=== PATIENT | female | born 1955 | race Caucasian/White ===

== ENCOUNTER 2018-07-18 11:48 | Emergency (ER) | payer OTHER, SELFPAY ==
[2018-07-18 11:49] VITALS: BP 192/90; PULSE 90; RESP 18; TEMP 36.2; O2SAT 99; BMI 20.5
--- NOTE | 2018-07-18 12:41 | EKG12_ITS ---
Test Reason : INCR BP Blood Pressure : / mmHG Vent. Rate : 074 BPM Atrial Rate : 074 BPM P-R Int : 170 ms QRS Dur : 106 ms QT Int : 390 ms P-R-T Axes : 068 -20 130 degrees QTc Int : 432 ms Normal sinus rhythm Left ventricular hypertrophy with repolarization abnormality Abnormal ECG Confirmed by CLARIBEL PARHAM, JUAN ([id number]), features editor DAVID SANTANA ([id number]) on 07/20/2018 1:56:39 PM Referred By: DR MADSEN Confirmed By:JUAN SANFORD MD
--- NOTE | 2018-07-18 12:44 | NURSING ---
NO OLD EKGS
--- NOTE | 2018-07-18 12:45 | RAD_ITS ---
STUDY: X-RAY CHEST REASON FOR EXAM: Female, 63 years old. Chest pain. TECHNIQUE: Single AP portable view of the chest. COMPARISON: None. FINDINGS: Hyperinflation. The lungs are clear. There is no demonstrated pleural abnormality. Normal size heart. Normal mediastinum and marya. Normal visualized pulmonary arteries. Normal visualized aortic arch and descending thoracic aorta. There are degenerative changes of the visualized thoracic spine. Normal visualized ribs, clavicles, and shoulders. There is no demonstrated abnormality of the visualized soft tissue structures of the upper abdomen. RAD/Chest 1 View (Portable) IMPRESSION: Hyperinflation. Electronically Signed: Freedom Jimenez MD at 13:30 EST Tel [phone], Service support ,
[2018-07-18 13:16] LABS: Absolute Lymphocyte Count 1.59 X10^3/ul (0.83-4.51); Absolute Neutrophil Count 7.1 X10^3/uL (2.0-7.7); Basophil# 0.05 X10^3/uL; Basophil% 0.5 % (0-1); Eosinophil# 0.23 X10^3/uL; Eosinophils% 2.4 % (0-5); Hematocrit 49.6 % (37-47); Hemoglobin 16.8 g/dl (12.0-15.0); Lymphocyte # 1.59 X10^3/ul (4.0); Lymphocyte % 16.6 % (19-41); Mean Corp Hgb Conc 33.9 g/gl (32-36); Mean Corpuscular Hgb 31.9 pg (27.0-32.0); Mean Corpuscular Volume 94.3 fL (81-99); Mean Platelet Vol. 9.3 fl (6.2-12.0); Monocyte# 0.57 X10^3/uL; Monocyte% 5.9 % (0-10); Neutrophil # 7.14 X10^3/uL (2.7-7.7); Neutrophil % 74.4 % (47-70); Platelet Count 223 K/mm3 (150-450); RBC Distribution Width CV 12.6 % (11.6-14.6); RBC Distribution Width SD 43.5 fl (35.1-43.9); Red Blood Count 5.26 M/mm3 (4.2-5.4); White Blood Count 9.6 K/mm3 (4.4-11.0)
[2018-07-18 13:17] LABS: POSITIVE COUNT NO; POSITIVE DIFFERENTIAL NO; POSITIVE MORPHOLOGY NO
[2018-07-18 13:27] LABS: Anion Gap 8 (5-15); BUN 14 mg/dL (7-18); BUN/Creat Ratio 16.2 RATIO (10-20); Calcium,Total 9.4 mg/dL (8.5-10.1); Chloride 102 mmol/L (98-107); Creatinine, Serum 0.86 mg/dL (0.55-1.02); EST Glomerular Filtration Rate 70 mL/min (>60); Est Glom Filt Rate - Afr Amer 85 mL/min (>60); Estimated Creatinine Clearance 52.27 ml/min; Glucose 126 mg/dL (74-106); Potassium 3.9 mmol/L (3.5-5.1); Sodium Level 135 mmol/L (136-145)
--- NOTE | 2018-07-18 13:40 | ED.DCSUM_ITS ---
- ER Visit Summary Date of Service: 07/18/18 Chief Complaint: High blood pressure History of Present Illness: The patient is a 63 F with no primary care physician. She reports that she went to an urgent care 2 weeks ago and her blood pressure was found to be 206/92. She went to a nurse practitioner last w [place] and was placed on hydrochlorothiazide and is taking 12.5 mg p.o. daily. She is concerned today because she has had upper back pain for the past 3 days. States is 10-10 at worst and through 10 currently. Is increased with standing on her feet. She denies any recent trauma. No fall, MVA, or change in activity. Patient reports that her hands have been tingling and cold bilaterally. She rep orts this is chronic, but seems to be worse today. She denies any other paresthesias. No headache. No chest pain or shortness of breath. Physical Examination: Vitals: Stable. Afebrile. General: Well-nourished and well-developed. Head: Normocephalic atraumatic. Neck: Supple, no lymphadenopathy. No JVD. Nontender. Cardiovascular: Regular rate and rhythm. No murmurs. Respiratory: No respiratory distress. Clear to auscultation bilaterally. Abdominal: Soft, nontender, nondistended, normal bowel sounds. No guarding, rebound, or peritoneal signs. Back: Mild tenderness palpation over the mid thoracic region.. Extremities: Nontender, no edema. 2+ radial pulse bilaterally. Skin: Normal color, no rash. Neurologic: Alert and oriented ?3. Cranial nerves II through XII are intact. Normal strength and sensation. Psych: Normal affect. Test Results: EKG is sinus at 74 with LVH with repolarization changes and T wave inversions laterally. Troponin is 0.031. Chem-7 is more for sodium 135 and glucose 126. CBC is more for an H&H of 16.8, 49.6, 7 neutrophils 74, lymphocytes 17. Chest x-ray shows no acute disease. Emergency Department Course and Treatment: Patient's initial blood pressure was 192/90. This decreased to 170/74 with no treatment. Treatment Plan: I discussed the patient that at this time she certainly does have hypertension and this appears to be long-standing given her EKG changes. She will be discharged instructions to follow-up with Dr. Hector for further ev aluation and optimization of her blood pressure treatment. Return to the emergency department for any worsening symptoms. Disposition: To home in improved and stable condition. Impression: 1. Hypertension. 2. Upper back pain, musculoskeletal. This note was generated with Attensity dictation software. It may contain incorrect words, spelling, and punctuation that were not noted in review of the chart prior to signing ED Disposition - Plan for ED Patient: Disposition: Home or Assisted Living Chief Complaint: Back Instructions: ED HTN Established Referrals: Keerthi Hector MD [STAFF PHYSICIAN] - 1 Week
[2018-07-18 14:05] VITALS: BP 164/76; PULSE 76; RESP 20; O2SAT 98
== END 2018-07-18 14:06 | disposition home or self-care (01) ==
PROVIDERS: Emergency Provider Emergency Medicine
DX: I10 Essential (primary) hypertension (principal); M54.6 Pain in thoracic spine; Z72.0 Tobacco use
CPT/HCPCS: 71045; 80048; 84484; 85025; 93005; 99284; A4216

== ENCOUNTER 2022-02-20 17:54 | Inpatient (IN) | payer MEDICARE, SELFPAY ==
[2022-02-20] VITALS (11 sets, daily range): BP systolic 132–177; BP diastolic 61–76; PULSE 85–113; RESP 15–28; TEMP 36.6–37; O2SAT 95–98; BMI 19.8; BMI 19.9; BMI 18.8
--- NOTE | 2022-02-20 17:56 | EKG12_ITS ---
Test Reason : CVA Blood Pressure : / mmHG Vent. Rate : 111 BPM Atrial Rate : 111 BPM P-R Int : 180 ms QRS Dur : 106 ms QT Int : 316 ms P-R-T Axes : 079 -15 105 degrees QTc Int : 429 ms Sinus tachycardia Incomplete right bundle branch block Left ventricular hypertrophy Nonspecific ST and T wave abnormality Abnormal ECG Confirmed by VIKRAM PARHAM, HEATHER ([id number]), video effects editor PABLO SHEA ([id number]) on 02/24/2022 12:45:29 PM Referred By: Johanny Dunbar Confirmed By:HEATHER SUE MD
--- NOTE | 2022-02-20 17:56 | CT_ITS ---
We are attempting to reach an attending provider to discuss findings. An addendum with communication details will be sent when the communication is complete. EXAM: CT ANGIOGRAPHY HEAD AND NECK WITH INTRAVENOUS CONTRAST CLINICAL INDICATION: Neuro deficit, acute, stroke suspected TECHNIQUE: [place] [facility] [place]/head and neck CT angiography protocol performed with intravenous contrast. This CT exam was performed using one or more of the following dose reduction techniques: automated exposure control, adjustment of the mA and/or kV according to patient size, and/or use of iterative reconstruction technique. This report was created using Z[employer] report generation technology. MIP reconstructed images were created and reviewed. CONTRAST: IV 100mL [id number]-[id number] RADIATION DOSE: CTDIvol = 15.25 mGy, DLP = 465.41 mGy-cm COMPARISON: None. FINDINGS: HEAD: RIGHT ANTERIOR CEREBRAL ARTERY: Unremarkable. No significant stenosis at the visualized segments. Anterior communicating artery is present. No aneurysm. RIGHT MIDDLE CEREBRAL ARTERY: Unremarkable. No significant stenosis at the visualized segments. No aneurysm. RIGHT POSTERIOR CEREBRAL ARTERY: Unremarkable. No occlusion or significant stenosis. No aneurysm. RIGHT INTRACRANIAL INTERNAL CAROTID ARTERY: See below. RIGHT INTRACRANIAL VERTEBRAL ARTERY: Nonvisualized distal right vertebral artery. This may suggest atresia or stenosis. LEFT ANTERIOR CEREBRAL ARTERY: Unremarkable. No significant stenosis at the visualized segments. No aneurysm. LEFT MIDDLE CEREBRAL ARTERY: Unremarkable. No significant stenosis at the visualized segments. No aneurysm. LEFT POSTERIOR CEREBRAL ARTERY: Unremarkable. No occlusion or significant stenosis. No aneurysm. LEFT INTRACRANIAL INTERNAL CAROTID ARTERY: See below. LEFT INTRACRANIAL VERTEBRAL ARTERY: Unremarkable. No significant stenosis. No dissection or occlusion. BASILAR ARTERY: Unremarkable. No significant stenosis. No aneurysm. OTHER VASCULATURE: There is mild atherosclerotic plaque formation of the origin of the right internal carotid artery with less than 50% cross sectional diameter stenosis. ALL ABOVE CRITERIA BY NASCET. There is mild atherosclerotic plaque formation of the origin of the left internal carotid artery with less than 50% cross sectional diameter stenosis. ALL ABOVE CRITERIA BY NASCET. There is calcified plaque formation of the right cavernous carotid artery, with a mild stenosis (less than 50%). ALL ABOVE CRITERIA BY NASCET. NECK: RIGHT COMMON CAROTID ARTERY: Unremarkable. No significant stenosis. No dissection or occlusion. RIGHT EXTRACRANIAL INTERNAL CAROTID ARTERY: See above. RIGHT EXTERNAL CAROTID ARTERY: Unremarkable. No occlusion. RIGHT EXTRACRANIAL VERTEBRAL ARTERY: See above. LEFT COMMON CAROTID ARTERY: Unremarkable. No significant stenosis. No dissection or occlusion. LEFT EXTRACRANIAL INTERNAL CAROTID ARTERY: See above. LEFT EXTERNAL CAROTID ARTERY: Unremarkable. No occlusion. LEFT EXTRACRANIAL VERTEBRAL ARTERY: Unremarkable. No significant stenosis. No dissection or occlusion. GREAT VESSELS OF AORTIC ARCH: There is calcified plaque formation of the left cavernous carotid artery, with a mild stenosis (less than 50%). ALL ABOVE CRITERIA BY NASCET. LUNG APICES: Unremarkable as visualized. HEAD and NECK: BONES/JOINTS: Unremarkable. No discrete lytic or blastic abnormalities. SOFT TISSUES: Unremarkable. CAROTID STENOSIS REFERENCE USING NASCET CRITERIA: % ICA stenosis = (1 - narrowest ICA diameter/diameter of distal cervical ICA) x 100. Mild - <50% stenosis. Moderate - 50-69% stenosis. Severe - 70-94% stenosis. Near occlusion - 95-99% stenosis. Occluded - 100% stenosis. CT/STROKE CTA Head AND Neck W/Con IMPRESSION: 1. Nonvisualized distal right vertebral artery. This may suggest atresia, occlusion, or stenosis. 2. There is mild atherosclerotic plaque formation of the origin of the right internal carotid artery with less than 50% cross sectional diameter stenosis. ALL ABOVE CRITERIA BY NASCET. 3. There is mild atherosclerotic plaque formation of the origin of the left internal carotid artery with less than 50% cross sectional diameter stenosis. ALL ABOVE CRITERIA BY NASCET. 4. There is calcified plaque formation of the right cavernous carotid artery, with a mild stenosis (less than 50%). ALL ABOVE CRITERIA BY NASCET. 5. There is calcified plaque formation of the left cavernous carotid artery, with a mild stenosis (less than 50%). ALL ABOVE CRITERIA BY NASCET. Electronically Signed: Khang Garcia MD at 18:21 EDT ,
--- NOTE | 2022-02-20 17:56 | CT_ITS ---
We are attempting to reach an attending provider to discuss findings. An addendum with communication details will be sent when the communication is complete. STUDY: CT BRAIN WITHOUT CONTRAST REASON FOR EXAM: Female, 67 years old. Neuro deficit, acute, stroke suspected Individualized dose optimization techniques were used for this CT. TECHNIQUE: Transaxial CT imaging of the brain was performed without administration of intravenous contrast material. COMPARISON: None FINDINGS: There are calcifications around the carotid artery. These are noted in the cavernous carotid arteries. Normal calvarium. Normal soft tissues. Old infarct of the right parietal lobe. There is mild cerebral atrophy with widening of the extra-axial spaces and ventricular dilatation. There are areas of decreased attenuation within the white matter tracts of the supratentorial brain, consistent with microvascular disease changes. Normal basal ganglia and thalami. Normal brainstem. There is mild cerebellar atrophy. Old infarct of the right cerebellum. There is no intracranial hemorrhage. There are no findings of an acute ischemic infarction. Normal visualized paranasal sinuses. ASPECTS Score for Acute Strokes: 04/13 CT/STROKE Brain/Head without Cont IMPRESSION: There are no acute findings. Chronic involutional changes of the brain. Electronically Signed: Khang Garcia MD at 18:06 EDT ,
--- NOTE | 2022-02-20 17:57 | ED.VIS.STROK ---
HPI History of Present Illness Chief Complaint: Neuro S/Sx Informant: patient and EMS Narrative Narrative: Patient is a 67-year-old female with history of tobacco use and hypertension presenting with concern for stroke. Patient was having a couple beers with her sister when the sister noticed that all of a sudden she kept missing her mouth and she was trying to drink and could not get it to her mouth when she was trying to have a cigarette. Patient was also reported to have slurred speech. Last known well was at 1645 today. Patient states she does not know why she is here and has no complaints. She denies any history of stroke. She is not on any blood thinners. PFSH PFS Home Medications hydrochlorothiazide 25 mg tablet 12.5 mg PO DAILY 07/18/18 [History Last Taken Unknown] alendronate 70 mg tablet 70 mg PO QWEEK 02/20/22 [History Last Taken Unknown] amlodipine 10 mg tablet 10 mg PO DAILY 02/20/22 [History Last Taken Unknown] cholecalciferol (vitamin D3) 50 mcg (2,000 unit) capsule 1,000 unit PO DAILY 02/20/22 [History Last Taken Unknown] lisinopril 40 mg tablet 40 mg PO DAILY 02/20/22 [History Last Taken Unknown] meloxicam 7.5 mg tablet 7.5 mg PO DAILY PRN Pain 02/20/22 [History Last Taken Unknown] Allergy/AdvReac Type Severity Reaction Status Date / Time No Known Allergies Allergy Verified 02/20/22 18:24 Family History no significant family his Surgical History no surgical history Social History Smoking Status: Current every day smoker tobacco type: cigarettes ROS ROS ED Constitutional Constitutional ED: Denies chills or fever(s) Eyes Eyes: Denies blurry vision or change in vision ENT ENT ED: Denies rhinorrhea Cardiovascular Cardiovascular: Denies chest pain or palpitations Respiratory/Chest Respiratory/Chest: Denies cough Gastrointestinal Gastrointestinal: Denies abdominal pain, nausea or vomiting Musculoskeletal Musculoskeletal: Denies arthralgias or myalgias Integumentary Denies rash Neurologic Neurologic: Denies headache(s), paresthesias or weakness Psychiatric Psychiatric: Denies anxiety Hematologic/Lymphatic Hematologic/Lymphatic: Denies easy bleeding or easy bruising EXAM Physical Exam Const Vital Signs: 02/20/22 17:56 02/20/22 18:19 02/20/22 19:00 Temperature 98.1 F Temperature Source Temporal Pulse Rate 113 H 109 H Respiratory Rate 28 H 15 Blood Pressure 177/68 H 158/61 H Blood Pressure Mean 104 93 Pulse Ox 95 96 Oxygen Delivery Method Room Air Room Air Room Air 02/20/22 18:54 02/20/22 19:15 Temperature 98.6 F Temperature Source Temporal Pulse Rate 109 H 87 Respiratory Rate 22 H 18 Blood Pressure 158/61 H 132/66 H Blood Pressure Mean 93 88 Pulse Ox 95 97 Oxygen Delivery Method Room Air Room Air Positive well nourished and well developed General Appearance ED: well developed and NAD HEENT Reports moist mucous membranes atraumatic Eyes PERRL and EOMs intact bilaterally Neck supple Chest Wall inspection of chest normal Resp normal respiratory effort and clear to auscultation bilaterally Cardio no murmurs GI normal to inspection, nondistended, normoactive bowel sounds Neuro CN's II-XII intact bilaterally and no sensory deficits noted Sensorium / Orientation: alert, oriented to person and confused Speech: speech normal Motor Exam: strength 5/5 throughout Psych mental status grossly normal Skin no wounds MDM MDM MDM Narrative Medical decision making narrative: Patient is a 67-year-old female with history of hypertension and osteoporosis presenting with new onset of slurred speech, right facial droop and difficulty with movement of her right arm. On initial evaluation patient has an NIH of 2 for not being able to answer the month of the year (daughter states this is normal for her) and ataxia in her right upper extremity. Patient is evaluated by neurology. Patient does not feel that her stroke is debilitating and does not want tPA. Given the mild nature of her symptoms neurology and I are in agreement with this. Patient does have capacity to make this decision. 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 In addition she has nonvisualization of the distal right vertebral artery however basilar artery is intact. This is discussed with Dr. Maya, neurology at [facility], who states that this would be medical management and does not constitute a LVO. Patient is found to be hypokalemic and a magnesium is ordered as well. She is given oral potassium replacement. She has a leukocytosis of 14.8 with no clear source of infection. Will defer antibiotics at this time. Her alcohol is mildly elevated at 87 consistent with having beers before coming in. I do not think it is elevated enough to explain her ataxia. Patient is given aspirin the emergency room. Should be mated to the hospitalist for further stroke evaluation. Lab Data Attestation: I reviewed the patient's lab results. Labs: Laboratory Results - last 24 hr 02/20/22 02/20/22 02/20/22 17:50 17:50 17:50 WBC 14.8 H RBC 4.95 Hgb 15.4 H Hct 44.8 MCV 90.5 MCH 31.1 MCHC 34.4 RDW Std Deviation 41.4 RDW Coeff of Ed 12.5 Plt Count 323 MPV 8.5 Immature Gran % (Auto) 0.400 Neut % (Auto) 62.9 Lymph % (Auto) 30.0 [place] % (Auto) 5.4 Eos % (Auto) 0.9 Baso % (Auto) 0.4 Absolute Neuts (auto) 9.3 H Absolute Lymphs (auto) 4.42 Nucleated RBC % 0 PT 12.3 INR 1.0 APTT 29.6 Sodium 138 Potassium 2.9 L Chloride 103 Carbon Dioxide 24.0 Anion Gap 11 BUN 9 Creatinine 0.85 Estim Creat Clear Calc 47.80 Est GFR (MDRD) Af Amer 86 Est GFR (MDRD) Non-Af 71 BUN/Creatinine Ratio 10.6 Glucose 111 H Calcium 10.0 Magnesium Troponin I High Sens 22 Ethyl Alcohol 02/20/22 02/20/22 18:12 18:56 WBC RBC Hgb Hct MCV MCH MCHC RDW Std Deviation RDW Coeff of Ed Plt Count MPV Immature Gran % (Auto) Neut % (Auto) Lymph % (Auto) [place] % (Auto) Eos % (Auto) Baso % (Auto) Absolute Neuts (auto) Absolute Lymphs (auto) Nucleated RBC % PT INR APTT Sodium Potassium Chloride Carbon Dioxide Anion Gap BUN Creatinine Estim Creat Clear Calc Est GFR (MDRD) Af Amer Est GFR (MDRD) Non-Af BUN/Creatinine Ratio Glucose Calcium Magnesium 2.0 Troponin I High Sens Ethyl Alcohol 87.0 Radiography Diagnostic Testing: Clinical Impression(s) from Imaging Studies Brain CT 02/20/22 17:56 IMPRESSION: There are no acute findings. Chronic involutional changes of the brain. Electronically Signed: Khang Garcia MD at 18:06 EDT , ADDENDUM: 02/20/22 1814 IMPRESSION: There are no acute findings. Chronic involutional changes of the brain. N.B. : The above Results were Read Back by Khang Garcia MD to Dr. Izabella Dumas MD, and understanding confirmed on 02/20/2022 18:08:00 (ET). Electronically Signed: Khang Garcia MD at 18:06 EDT , Head/Neck CTA 02/20/22 17:56 IMPRESSION: 1. Nonvisualized distal right vertebral artery. This may suggest atresia, occlusion, or stenosis. 2. There is mild atherosclerotic plaque formation of the origin of the right internal carotid artery with less than 50% cross sectional diameter stenosis. ALL ABOVE CRITERIA BY NASCET. 3. There is mild atherosclerotic plaque formation of the origin of the left internal carotid artery with less than 50% cross sectional diameter stenosis. ALL ABOVE CRITERIA BY NASCET. 4. There is calcified plaque formation of the right cavernous carotid artery, with a mild stenosis (less than 50%). ALL ABOVE CRITERIA BY NASCET. 5. There is calcified plaque formation of the left cavernous carotid artery, with a mild stenosis (less than 50%). ALL ABOVE CRITERIA BY NASCET. Electronically Signed: Khang Garcia MD at 18:21 EDT , ADDENDUM: 02/20/22 1834 IMPRESSION: 1. Nonvisualized distal right vertebral artery. This may suggest atresia, occlusion, or stenosis. 2. There is mild atherosclerotic plaque formation of the origin of the right internal carotid artery with less than 50% cross sectional diameter stenosis. ALL ABOVE CRITERIA BY NASCET. 3. There is mild atherosclerotic plaque formation of the origin of the left internal carotid artery with less than 50% cross sectional diameter stenosis. ALL ABOVE CRITERIA BY NASCET. 4. There is calcified plaque formation of the right cavernous carotid artery, with a mild stenosis (less than 50%). ALL ABOVE CRITERIA BY NASCET. 5. There is calcified plaque formation of the left cavernous carotid artery, with a mild stenosis (less than 50%). ALL ABOVE CRITERIA BY NASCET. N.B. : The above Results were Read Back by Khang Garcia MD to Dr. Izabella Dumas DO, and understanding confirmed on 02/20/2022 18:27:07 (ET). Electronically Signed: Khang Garcia MD at 18:21 EDT , Chest X-Ray 02/20/22 19:15 IMPRESSION: There are no acute findings. Electronically Signed: Khang Garcia MD at 19:31 EDT , Chest x-ray interpreted by myself as well as radiology?no acute process Rhythm Strip Rhythm Strip: Sinus Tach Rate: 111 Ectopy: None EKG Initial EKG: Attestation: I personally reviewed and interpreted this EKG as follows: Interpretation: Sinus Tachycardia Comments: Sinus tachycardia rate of 111 Normal axis Incomplete right bundle branch block LVH with repolarization abnormalities Subtle ST depression in lateral leads with no reciprocal changes No prior EKG available for comparison Stroke Documentation Questions Stroke Team Activated: Yes Reviewed Inclusion/Exclusion criteria: Yes IV Alteplase (t-PA) Administered: No No contraindications for IV Alteplase (t-PA) administration.: Yes Alteplase (t-PA) risks, benefits, alternative discussed: Yes Not given: Patient refusal: Yes Critical Care Time Critical Care Time: Yes Critical care time (excluding procedures): 30-74 minutes (45), Discussing w/Consultants, Arranging Admission or Transfer and Performing Direct Patient Care at Bedside Discharge Plan Dx/Rx/DC Orders Clinical Impression: Ataxia of right upper extremity, Hypokalemia, Continuous tobacco abuse, Abnormal brain CT Disposition Disposition: Acute Care Hospital [facility] NIHSS NIHSS 1a. Level of Consciousness: Alert; keenly responsive 1b. LOC Questions: Answers one question correctly. 1c. LOC Commands: Performs both tasks correctly. 2. Best Gaze: Normal 3. Visual: No visual loss 4. Facial Palsy: Normal symmetrical movements 5a. Left Arm: No drift; arm holds 90 (or 45) degrees for full 10 seconds 5b. Right Arm: No drift; arm holds 90 (or 45) degrees for full 10 seconds 6a. Left Leg: No drift; leg holds 30-degree position for full 5 seconds 6b. Right Leg: No drift; leg holds 30-degree position for full 5 seconds 7. Limb Ataxia: Present in 1 limb 8. Sensory: Normal; no sensory loss 9. Best Language: No aphasia; normal 10. Dysarthria: Normal 11. Extinction and Inattention: No abnormality Total: 2 Stroke Questions Stroke Team Activated: Yes a.Reviewed Inclusion/Exclusion criteria: Yes IV TPA Administered: No No contraindications for IV Alteplase (t-PA) administration.: Yes Risks, Benefits, Alternatives Discussed: Yes Not given: Patient refusal: Yes
[2022-02-20 18:09] LABS: Absolute Lymphocyte Count 4.42 X10^3/uL (0.83-4.51); Absolute Neutrophil Count 9.3 X10^3/uL (2.0-7.7); Basophil# 0.06 X10^3/uL; Basophil% 0.4 % (0-1); Eosinophil# 0.14 X10^3/uL; Eosinophils% 0.9 % (0-5); Hematocrit 44.8 % (37-47); Hemoglobin 15.4 g/dL (12.0-15.0); Lymphocyte # 4.42 X10^3/ul (0.83-4.51); Mean Corp Hgb Conc 34.4 g/dL (32-36); Mean Corpuscular Hgb 31.1 pg (27.0-32.0); Mean Corpuscular Volume 90.5 fL (81-99); Mean Platelet Vol. 8.5 fl (6.2-12.0); Monocyte# 0.79 X10^3/uL; Monocyte% 5.4 % (0-10); NRBC Flagged by Analyzer 0 % (0-5); Neutrophil # 9.28 X10^3/uL (2.7-7.7); Neutrophil % 62.9 % (47-70); Platelet Count 323 K/mm3 (150-450); RBC Distribution Width CV 12.5 % (11.6-14.6); RBC Distribution Width SD 41.4 fl (35.1-43.9); Red Blood Count 4.95 M/mm3 (4.2-5.4); White Blood Count 14.8 K/mm3 (4.4-11.0)
[2022-02-20 18:15] LABS: Partial Thromboplast Time 29.6 Seconds (24.1-36.2); Prothrombin Time (Protime)PT. 12.3 SECONDS (11.7-14.9)
--- NOTE | 2022-02-20 18:16 | CM.ED ---
Social Work Note Reason for Referral: STROKE Team alert SW responded to Stroke Team alert. Pt's daughter Radha and her present at [facility]. Emotional support provided. SW to remain available should additional needs or concerns arise. Cari Vargas FURNITURE BUILDER, [employer]
[2022-02-20 18:37] LABS: Anion Gap 11 (5-15); BUN 9 mg/dL (7-18); BUN/Creat Ratio 10.6 RATIO (10-20); Chloride 103 mmol/L (98-107); Creatinine, Serum 0.85 mg/dL (0.55-1.02); EST Glomerular Filtration Rate 71 mL/min (>60); Est Glom Filt Rate - Afr Amer 86 mL/min (>60); Glucose 111 mg/dL (74-106); Potassium 2.9 mmol/L (3.5-5.1); Sodium Level 138 mmol/L (136-145); Troponin-I HS 22 pg/mL (3.0-54.0)
[2022-02-20] MEDS: Aspirin 325 MG Tablet PO (19:08)
[2022-02-20] MEDS: Potassium Chloride Oral Tablet 20 MEQ 40 MEQ PO (19:08)
--- NOTE | 2022-02-20 19:15 | RAD_ITS ---
STUDY: XR Chest 1 View 02/20/2022 7:13 PM REASON FOR EXAM: Female, 67 years old. CHEST PAIN Neuro deficit, acute, stroke suspected COMPARISON: 07.18.18 TECHNIQUE: XR Chest 1 View FINDINGS: There is no demonstrated pleural abnormality. Normal heart size. Normal mediastinum. Normal marya. Prominent appearing increased interstitial lung markings. Normal visualized pulmonary arteries. There is atherosclerotic calcification of the aortic arch with tortuosity. There are diffuse degenerative changes of the visualized thoracic spine. There is degenerative osteoarthritis of the bilateral shoulders. There is no demonstrated abnormality of the visualized soft tissue structures of the upper abdomen. RAD/Chest 1 View IMPRESSION: There are no acute findings. Electronically Signed: Khang Garcia MD at 19:31 EDT ,
--- NOTE | 2022-02-20 19:58 | PCM.HP.STD ---
HPI - General General Date of Admission: 02/20/22 Date of Service: 02/20/22 Chief Complaint: Strokelike symptoms HPI Narrative SIERRA SANTANA, is a 67 F with history significant for tobacco abuse and hypertension who presents with strokelike symptoms. Her symptoms started about 30 minutes before presentation. Patient had slurred speech. While drinking and smoking she was missing her mouth. She denies any other symptoms. Her symptoms improved. FORMERLY [facility] Medical History (Updated 02/20/22 @ 21:[address] Jono Watson MD) HTN (hypertension) Home Medications alendronate 70 mg tablet 70 mg PO DYE BONES 02/20/22 [History Last Taken 02/15/22] amlodipine 10 mg tablet 10 mg PO DAILY 02/20/22 [History Last Taken 02/20/22] cholecalciferol (vitamin D3) 50 mcg (2,000 unit) capsule 2,000 unit PO DAILY 02/20/22 [History Last Taken 02/20/22] lisinopril 40 mg tablet 40 mg PO DAILY 02/20/22 [History Last Taken 02/20/22] Allergy/AdvReac Type Severity Reaction Status Date / Time No Known Allergies Allergy Verified 02/20/22 18:24 Family History Other Diabetes Family History no significant family his Surgical History H/O tubal ligation Surgical History no surgical history Social History Smoking Status: Current every day smoker tobacco type: cigarettes ROS ROS Narrative Pertinent positives and pertinent negatives as noted in HPI. All other systems were reviewed and are negative Vital Signs Vital Signs Vital Signs: 02/20/22 17:56 02/20/22 18:19 02/20/22 19:00 Temperature 98.1 F Temperature Source Temporal Pulse Rate 113 H 109 H Respiratory Rate 28 H 15 Blood Pressure 177/68 H 158/61 H Blood Pressure Mean 104 93 Pulse Ox 95 96 Oxygen Delivery Method Room Air Room Air Room Air 02/20/22 18:54 02/20/22 19:15 Temperature 98.6 F Temperature Source Temporal Pulse Rate 109 H 87 Respiratory Rate 22 H 18 Blood Pressure 158/61 H 132/66 H Blood Pressure Mean 93 88 Pulse Ox 95 97 Oxygen Delivery Method Room Air Room Air Weight Weight: 49.2 kg Body Mass Index (BMI) 19.9 Physical Exam Narrative Physical exam: General: Well-nourished, well-developed. Head: Normocephalic, atraumatic, no tenderness Eyes: Vision is grossly intact. EOMI ENT, no trauma, moist mucous membranes, no rhinorrhea Neck: Nontender, full range of motion. CVS: Regular rate and rhythm. S1-S2 present. No murmur, gallop or rub. Respiratory : clear to auscultation bilaterally, chest wall nontender, no wheezing Abdomen: Soft, nontender, nondistended, normal bowel sounds, no masses : Deferred Back: Nontender, no CVA tenderness, no midline spinal tenderness, deformities, step-offs Extremities: Nontender full range of motion, no trauma Skin: Normal color, no trauma, abrasions Neuro: Poor vision (chronic) alert, oriented. Mild dysmetria with [id number] test on the right that family attributes to poor vision. Strength in right lower extremity 4 out of 5. Strength in all other extremities 5 out of 5 Psychiatry: Normal mood. Normal affect. Not depressed. Not anxious. Results Lab / Micro Data Result Diagrams: 02/20/22 17:50 02/20/22 17:50 Labs: Laboratory Results - last 24 hr 02/20/22 17:50: WBC 14.8 H, RBC 4.95, Hgb 15.4 H, Hct 44.8, MCV 90.5, MCH 31.1, MCHC 34.4, RDW Std Deviation 41.4, RDW Coeff of Ed 12.5, Plt Count 323, MPV 8.5, Immature Gran % (Auto) 0.400, Neut % (Auto) 62.9, Lymph % (Auto) 30.0, [place] % (Auto) 5.4, Eos % (Auto) 0.9, Baso % (Auto) 0.4, Absolute Neuts (auto) 9.3 H, Absolute Lymphs (auto) 4.42, Nucleated RBC % 0 02/20/22 17:50: PT 12.3, INR 1.0, APTT 29.6 02/20/22 17:50: Sodium 138, Potassium 2.9 L, Chloride 103, Carbon Dioxide 24.0, Anion Gap 11, BUN 9, Creatinine 0.85, Estim Creat Clear Calc 47.80, Est GFR (MDRD) Af Amer 86, Est GFR (MDRD) Non-Af 71, BUN/Creatinine Ratio 10.6, Glucose 111 H, Calcium 10.0, Troponin I High Sens 22 02/20/22 18:12: Ethyl Alcohol 87.0 02/20/22 18:56: Magnesium 2.0 Rhythm Strip Rhythm Strip: Sinus Tach Rate: 111 Ectopy: None Radiology Impression Brain CT 02/20/22 17:56 IMPRESSION: There are no acute findings. Chronic involutional changes of the brain. Electronically Signed: Khang Garcia MD at 18:06 EDT , ADDENDUM: 02/20/22 1814 IMPRESSION: There are no acute findings. Chronic involutional changes of the brain. N.B. : The above Results were Read Back by Khang Garcia MD to Dr. Izabella Dumas MD, and understanding confirmed on 02/20/2022 18:08:00 (ET). Electronically Signed: Khang Garcia MD at 18:06 EDT , Head/Neck CTA 02/20/22 17:56 IMPRESSION: 1. Nonvisualized distal right vertebral artery. This may suggest atresia, occlusion, or stenosis. 2. There is mild atherosclerotic plaque formation of the origin of the right internal carotid artery with less than 50% cross sectional diameter stenosis. ALL ABOVE CRITERIA BY NASCET. 3. There is mild atherosclerotic plaque formation of the origin of the left internal carotid artery with less than 50% cross sectional diameter stenosis. ALL ABOVE CRITERIA BY NASCET. 4. There is calcified plaque formation of the right cavernous carotid artery, with a mild stenosis (less than 50%). ALL ABOVE CRITERIA BY NASCET. 5. There is calcified plaque formation of the left cavernous carotid artery, with a mild stenosis (less than 50%). ALL ABOVE CRITERIA BY NASCET. Electronically Signed: Khang Garcia MD at 18:21 EDT , ADDENDUM: 02/20/22 1834 IMPRESSION: 1. Nonvisualized distal right vertebral artery. This may suggest atresia, occlusion, or stenosis. 2. There is mild atherosclerotic plaque formation of the origin of the right internal carotid artery with less than 50% cross sectional diameter stenosis. ALL ABOVE CRITERIA BY NASCET. 3. There is mild atherosclerotic plaque formation of the origin of the left internal carotid artery with less than 50% cross sectional diameter stenosis. ALL ABOVE CRITERIA BY NASCET. 4. There is calcified plaque formation of the right cavernous carotid artery, with a mild stenosis (less than 50%). ALL ABOVE CRITERIA BY NASCET. 5. There is calcified plaque formation of the left cavernous carotid artery, with a mild stenosis (less than 50%). ALL ABOVE CRITERIA BY NASCET. N.B. : The above Results were Read Back by Khang Garcia MD to Dr. Izabella Dumas DO, and understanding confirmed on 02/20/2022 18:27:07 (ET). Electronically Signed: Khang Garcia MD at 18:21 EDT , Chest X-Ray 02/20/22 19:15 IMPRESSION: There are no acute findings. Electronically Signed: Khang Garcia MD at 19:31 EDT , Assessment & Plan Assessment/Plan (1) Ataxia of right upper extremity: (2) Hypokalemia: (3) Stroke-like symptoms: (4) Continuous tobacco abuse: PLAN: Plan Serial NINDS NIH Scale ordered Impression of head CT by radiology: There are no acute findings. Chronic involutional changes of the brain. Upon my personal head CT image review: I agree with radiologist interpretation Head/Neck CTA Nonvisualized distal right vertebral artery suggest atresia, occlusion, or stenosis. This should not explain her symptoms as her symptoms is at the right side of her extremity Alcohol level 87, due to patient drinking few minutes before presentation. She denies alcoholism Lipid profile and A1c ordered. Physical therapy, and occupational therapy and to work with patient. N.p.o. until bedside swallow eval. Daily aspirin. High intensity statin ordered Permissive hypertension. Control blood pressure with labetalol for systolic blood pressure of more than 220 or diastolic blood pressure of more than 120. MRI of head; brain; and neck. Echocardiogram ordered. Leukocytosis Work on presentation was 14.8, likely reactive. Trend CBC' Hypokalemia Potassium 2.9 on presentation. Present in the ED. Magnesium level is normal. Trend BMP. Hypertension Blood pressure is not within goal Home blood pressure medication held for permissive HTN. Trend blood pressure and adjust blood pressure medications. Tobacco abuse Nicotine patch ordered DVT prophylaxis: SCD ordered Charges/Coding Visit Charges OBSV E&M: 09946 Initial observation care L3
[2022-02-20 20:07] LABS: Mucous, Urine 0 SEEN /hpf (<or=2+); Red Blood Cells-Urine 0 SEEN /hpf (0-5); Squamous Epithelial Cells - UA 0 SEEN /hpf (5-10); White Blood Cells 0 SEEN /hpf (0-5)
[2022-02-20 20:08] LABS: Color, Urine Straw (Yellow); Glucose, Dipstick Normal (Normal); Ketone-Dipstick Negative (Negative); Leukocyte Esterase-Dipstick Negative /ul (Negative); Nitrite-Dipstick Negative (Negative); Occult Blood-Urine Negative /ul (Negative); Protein-Dipstick Negative (Negative); Specific Gravity, Urine 1.005 (1.002-1.030); Urine Bilirubin Dipstick Negative (Negative); Urine Clarity Clear (Clear); Urine Urobilinogen Normal (Normal)
[2022-02-20 20:17] LABS: Bacteria RARE /hpf (None Seen)
--- NOTE | 2022-02-20 21:07 | ECHOD_ITS ---
Reason For Study: TIA/CVA Procedure This was a 2D Doppler, Color Flow transthoracic echocardiogram. Exam performed portable in patient room. Left Ventricle Moderate concentric left ventricular hypertrophy. The estimated ejection fraction is 55-60 %. Right Ventricle Normal right ventricle. Normal systolic function. Atria Normal left atrium. Normal right atrium. Bubble contrast study negative for right to left interatrial shunt. Mitral Valve The mitral valve is structurally normal. No prolapse or stenosis seen. Tricuspid Valve Normal tricuspid valve. No tricuspid valve insufficiency. Aortic Valve Normal aortic valve. No aortic valve insufficiency. Pulmonic Valve The pulmonic valve is not well visualized. Great Vessels Normal aortic root. Pericardium/Pleural No pericardial effusion. Medication Performed a rapid injection of agitated mix of 9 cc saline and 1cc air to assess for atrial septal defect. MMode/2D Measurements & Calculations LVIDd: 3.8 cm IVSd: 1.5 cm LVOT diam: 1.9 cm LVIDs: 1.6 cm LVPWd: 1.1 cm RVDd: 2.4 cm FS: 57.8 % LVOT area: 2.7 cm2 Ao root diam: 2.9 cm LAV(MOD-bp): 21.9 ml LVAd ap4: 14.5 cm2 LAV(MOD-bp) Indexed: 14.9 ml/m2 LVLd ap4: 6.8 cm LAV(MOD-sp2): 29.0 ml EDV(MOD-sp4): 27.9 ml LAV(MOD-sp4): 17.5 ml EDV(sp4-el): 26.3 ml LVAs ap4: 8.1 cm2 LVLs ap4: 6.3 cm ESV(MOD-sp4): 9.7 ml ESV(sp4-el): 8.8 ml EF(MOD-sp4): 65.3 % EF(sp4-el): 66.4 % SV(MOD-sp4): 18.2 ml SV(sp4-el): 17.5 ml LA A4 area: 9.9 cm2 LA dimension(2D): 2.6 cm RA A4 area: 10.3 cm2 Time Measurements MV dec time: 0.19 sec Doppler Measurements & Calculations MV E max karthikeyan: 77.3 cm/sec Lat Peak E' Karthikeyan: 5.5 cm/sec Med Peak E' Karthikeyan: 6.2 cm/sec MV A max karthikeyan: 96.3 cm/sec E/E' lat: 13.9 E/E' med: 12.4 MV E/A: 0.80 MV dec slope: 438.9 cm/sec2 Ao V2 max: 132.5 cm/sec LV V1 max: 112.8 cm/sec Ao max P.0 mmHg LV V1 max P.1 mmHg RAMSEY(V,D): 2.3 cm2 PA V2 max: 119.6 cm/sec ECHO/Echo Complete Interpretation Summary The estimated ejection fraction is 55-60 %.Moderate LVH Normal LV systolic function Negative Buble sthudy Grade#1 Diastolic Dysfunction No previous study to compare Ordering Physician: Jono Watson Referring Physician: Diana Mina Performed By: Melisa Beckett RDCS
[2022-02-20] MEDS: Atorvastatin Calcium 40 MG Tablet PO (22:18)
[2022-02-21] VITALS (12 sets, daily range): BP systolic 139–166; BP diastolic 65–80; PULSE 65–97; RESP 16–20; TEMP 36.2–37.1; O2SAT 96–99; BMI 18.8
[2022-02-21 07:13] LABS: Absolute Lymphocyte Count 2.43 X10^3/uL (0.83-4.51); Absolute Neutrophil Count 5.2 X10^3/uL (2.0-7.7); Basophil# 0.04 X10^3/uL; Basophil% 0.5 % (0-1); Eosinophil# 0.03 X10^3/uL; Eosinophils% 0.4 % (0-5); Hematocrit 41.6 % (37-47); Hemoglobin 14.2 g/dL (12.0-15.0); Lymphocyte # 2.43 X10^3/ul (0.83-4.51); Lymphocyte % 29.2 % (19-41); Mean Corp Hgb Conc 34.1 g/dL (32-36); Mean Corpuscular Hgb 31.1 pg (27.0-32.0); Mean Platelet Vol. 8.7 fl (6.2-12.0); Monocyte# 0.54 X10^3/uL; Monocyte% 6.5 % (0-10); NRBC Flagged by Analyzer 0 % (0-5); Neutrophil # 5.24 X10^3/uL (2.7-7.7); Neutrophil % 62.9 % (47-70); Platelet Count 278 K/mm3 (150-450); RBC Distribution Width CV 12.8 % (11.6-14.6); Red Blood Count 4.57 M/mm3 (4.2-5.4); White Blood Count 8.3 K/mm3 (4.4-11.0)
[2022-02-21 07:42] LABS: Anion Gap 5 (5-15); BUN 7 mg/dL (7-18); BUN/Creat Ratio 9.4 RATIO (10-20); Calcium,Total 8.9 mg/dL (8.5-10.1); Chloride 111 mmol/L (98-107); Cholesterol 135 mg/dL (200); Creatinine, Serum 0.75 mg/dL (0.55-1.02); EST Glomerular Filtration Rate 82 mL/min (>60); Est Glom Filt Rate - Afr Amer 99 mL/min (>60); Glucose 99 mg/dL (74-106); High Density Lipoprotein 42 mg/dL; Potassium 3.5 mmol/L (3.5-5.1); Sodium Level 140 mmol/L (136-145); Triglycerides 101 mg/dL; Very Low Density Lipoprotein 20 mg/dL (5-40)
[2022-02-21 07:57] LABS: Hemoglobin A1c 5.1 % (3.8-5.6)
--- NOTE | 2022-02-21 08:00 | MRI_ITS ---
We are attempting to reach an attending provider to discuss findings. An addendum with communication details will be sent when the communication is complete. STUDY: MRI BRAIN WITHOUT CONTRAST REASON FOR EXAM: Female, 67 years old patient with signs and symptoms of acute CVA. TECHNIQUE: Standardized multiplanar fat and water weighted pulse sequences were obtained. COMPARISON: CT of the head dated 02/20/2022. FINDINGS: There is mild cerebral atrophy with widening of the extra-axial spaces and ventricular dilatation. There are multiple white matter hyperintensities, distributed throughout the deep white matter tracts of the cerebral hemispheres, consistent with moderate chronic white matter ischemic changes. There is encephalomalacia present within the right occipital lobe and parietal lobe consistent with old infarct. There is restricted diffusion primarily within the periphery of the left frontal, parietal and temporal lobes consistent with acute left MCA infarct. Normal T2* images of the brain without demonstrated susceptibility artifact. There is no demonstrated hemosiderin stain. Normal bilateral basal ganglia. Normal thalami. There is no extra-axial fluid accumulation. Normal flow voids within the major intracranial circulation suggesting patency by spin echo criteria. Normal sella turcica, pituitary gland, infundibular stalk, optic chiasm and hypothalamus. Normal tectal plate and pineal gland. Normal midbrain, rafal and medulla. There is encephalomalacia present in the right cerebellar hemisphere consistent with old infarct. Normal basal cisterns. Normal bilateral temporal bones. Normal bilateral internal auditory canals. No demonstrated orbital abnormality, within the constraints of a routine brain study. Normal visualized paranasal sinuses. Normal calvarium and skull base. Normal visualized soft tissue structures. Normal visualized upper cervical spine. MRI/Brain without Contrast IMPRESSION: 1. Involutional changes of the brain, as described above. 2. Acute infarct involving the LEFT middle cerebral artery territory. 3. Sequela of multiple old infarcts involving the right parietal-occipital lobe and right cerebellum. Electronically Signed: Mariel Banerjee MD at 11:45 EDT ,
[2022-02-21] MEDS: Aspirin 81 MG TAB.CHEW PO (08:32)
[2022-02-21] MEDS: 0.9% Saline Lock 10 ML Syringe IV (08:33)
[2022-02-21] MEDS: Cholecalciferol (VIT D3) 25 MCG TABLET (1,000 UNITS) PO (08:33)
--- NOTE | 2022-02-21 11:46 | TELEMED_ITS ---
[facility] Tele[facility] has confirmed receipt of a request for visit. This document confirms receipt of the order initiating the consult. To find the results of the consultation, please view the patient's reports for the scanned Telemed Consult.
--- NOTE | 2022-02-21 11:47 | PN.HOSP_ITS ---
Subjective Subjective Follow-up on Acute CVA: Patient was seen and examined. She denied any new complaints. No dizziness or palpitations or shortness of breath Objective Data Objective Data Vital Signs: Vital Signs Temp Pulse Resp BP Pulse Ox O2 Del Method 97.2 F L 85 18 156/80 H 99 Room Air 02/21/22 08:30 02/21/22 08:30 02/21/22 08:30 02/21/22 08:30 02/21/22 08:35 02/21/22 08:35 Oxygen Delivery Method Room Air Weight: 46.7 kg Body Mass Index (BMI) 18.8 Intake & Output: Intake and Output for Last 24 Hours 02/19/22 02/20/22 02/21/22 23:59 23:59 23:59 Intake Total 370 / 370 Output Total 500 / 500 Balance -130 / -130 Lab / Micro Data Result Diagrams: 02/21/22 06:25 02/21/22 06:25 Labs: Laboratory Results - last 24 hr 02/20/22 17:50: WBC 14.8 H, RBC 4.95, Hgb 15.4 H, Hct 44.8, MCV 90.5, MCH 31.1, MCHC 34.4, RDW Std Deviation 41.4, RDW Coeff of Ed 12.5, Plt Count 323, MPV 8.5, Immature Gran % (Auto) 0.400, Neut % (Auto) 62.9, Lymph % (Auto) 30.0, [place] % (Auto) 5.4, Eos % (Auto) 0.9, Baso % (Auto) 0.4, Absolute Neuts (auto) 9.3 H, Absolute Lymphs (auto) 4.42, Nucleated RBC % 0 02/20/22 17:50: PT 12.3, INR 1.0, APTT 29.6 02/20/22 17:50: Sodium 138, Potassium 2.9 L, Chloride 103, Carbon Dioxide 24.0, Anion Gap 11, BUN 9, Creatinine 0.85, Estim Creat Clear Calc 47.80, Est GFR (MDRD) Af Amer 86, Est GFR (MDRD) Non-Af 71, BUN/Creatinine Ratio 10.6, Glucose 111 H, Calcium 10.0, Troponin I High Sens 02/20/22 18:12: Ethyl Alcohol 87.0 02/20/22 18:56: Magnesium 2.0 02/20/22 19:50: Urine Color Straw, Urine Clarity Clear, Urine pH 7.0, Ur Specific [place] 1.005, Urine Protein Negative, Urine Glucose (UA) Normal, Urine Ketones Negative, Urine Occult Blood Negative, Urine Nitrite Negative, Urine Bilirubin Negative, Urine Urobilinogen Normal, Ur Leukocyte Esterase Negative, Urine RBC 0 SEEN, Urine WBC 0 SEEN, Ur Squamous Epith Cells 0 SEEN, Urine Bacteria RARE, Urine Mucus 0 SEEN 02/21/22 06:25: WBC 8.3, RBC 4.57, Hgb 14.2, Hct 41.6, MCV 91.0, MCH 31.1, MCHC 34.1, RDW Std Deviation 42.0, RDW Coeff of Ed 12.8, Plt Count 278, MPV 8.7, Immature Gran % (Auto) 0.500, Neut % (Auto) 62.9, Lymph % (Auto) 29.2, [place] % (Auto) 6.5, Eos % (Auto) 0.4, Baso % (Auto) 0.5, Absolute Neuts (auto) 5.2, Absolute Lymphs (auto) 2.43, Nucleated RBC % 0 02/21/22 06:25: Sodium 140, Potassium 3.5, Chloride 111 H, Carbon Dioxide 24.0, Anion Gap 5, BUN 7, Creatinine 0.75, Estim Creat Clear Calc 39.70, Est GFR (MDRD) Af Amer 99, Est GFR (MDRD) Non-Af 82, BUN/Creatinine Ratio 9.4 L, Glucose 99, Calcium 8.9, Triglycerides 101, Cholesterol 135, LDL Cholesterol 73, VLDL Cholesterol 20, HDL Cholesterol 42 02/21/22 06:25: Hemoglobin A1c 5.1 Radiography Diagnostic Testing: Radiology Impression Brain CT 02/20/22 17:56 IMPRESSION: There are no acute findings. Chronic involutional changes of the brain. Electronically Signed: Khang Garcia MD at 18:06 EDT Reading Location ID and State: [facility] / [place] , Service support , ADDENDUM: 02/20/221813 IMPRESSION: There are no acute findings. Chronic involutional changes of the brain. N.B. : The above Results were Read Back by Khang Garcia MD to Dr. Izabella Dumas MD, and understanding confirmed on 02/20/2022 18:08:00 (ET). Electronically Signed: Khang Garcia MD at 18:06 EDT , Head/Neck CTA 02/20/22 17:56 IMPRESSION: 1. Nonvisualized distal right vertebral artery. This may suggest atresia, occlusion, or stenosis. 2. There is mild atherosclerotic plaque formation of the origin of the right internal carotid artery with less than 50% cross sectional diameter stenosis. ALL ABOVE CRITERIA BY NASCET. 3. There is mild atherosclerotic plaque formation of the origin of the left internal carotid artery with less than 50% cross sectional diameter stenosis. ALL ABOVE CRITERIA BY NASCET. 4. There is calcified plaque formation of the right cavernous carotid artery, with a mild stenosis (less than 50%). ALL ABOVE CRITERIA BY NASCET. 5. There is calcified plaque formation of the left cavernous carotid artery, with a mild stenosis (less than 50%). ALL ABOVE CRITERIA BY NASCET. Electronically Signed: Khang Garcia MD at 18:21 EDT , ADDENDUM: 02/20/22 1834 IMPRESSION: 1. Nonvisualized distal right vertebral artery. This may suggest atresia, occlusion, or stenosis. 2. There is mild atherosclerotic plaque formation of the origin of the right internal carotid artery with less than 50% cross sectional diameter stenosis. ALL ABOVE CRITERIA BY NASCET. 3. There is mild atherosclerotic plaque formation of the origin of the left internal carotid artery with less than 50% cross sectional diameter stenosis. ALL ABOVE CRITERIA BY NASCET. 4. There is calcified plaque formation of the right cavernous carotid artery, with a mild stenosis (less than 50%). ALL ABOVE CRITERIA BY NASCET. 5. There is calcified plaque formation of the left cavernous carotid artery, with a mild stenosis (less than 50%). ALL ABOVE CRITERIA BY NASCET. N.B. : The above Results were Read Back by Khang Garcia MD to Dr. Izabella Dumas DO, and understanding confirmed on 02/20/2022 18:27:07 (ET). Electronically Signed: Khang Garcia MD at 18:21 EDT , Chest X-Ray 02/20/22 19:15 IMPRESSION: There are no acute findings. Electronically Signed: Khang Garcia MD at 19:31 EDT , Brain MRI 02/21/22 08:00 IMPRESSION: 1. Involutional changes of the brain, as described above. 2. Acute infarct involving the LEFT middle cerebral artery territory. 3. Sequela of multiple old infarcts involving the right parietal-occipital lobe and right cerebellum. Electronically Signed: Mariel Banerjee MD at 11:45 EDT , Rhythm Strip Rhythm Strip: Sinus Tach Rate: 111 Ectopy: None Physical Exam Narrative Physical exam: General: Alert, Oriented x3, Cooperative, No apparent distress HEENT: Atraumatic Oral: Moist Mucosa Neck: Supple Lungs: Clear to auscultation Cardiovascular: HS I+II, regular, no murmurs Abdomen: Bowel Sounds Present, Soft, Non Tender Extremities: No edema Skin: No rashes, No breakdown Neurological: Cranial nerves II to XII intact, power 5 x 4 through 2, diminished sensation Psych/Mental Status: Appropriate Assessment & Plan Assessment/Plan (1) CVA (cerebral vascular accident): PLAN: Plan 1. Acute CVA, MRI of the brain shows acute infarct in the left MCA region, Multiple old infarcts involving the right parietal?occipital lobe and right cerebellum CTA of the chest shows mild(<50%) bilateral carotid stenosis Lipid profile showed triglycerides 101, total cholesterol 135, LDL 73, HDL 42 2D echo is pending. HbA1c is 5.1 Continue on aspirin, statin Advised to quit smoking Teleneurology consult 2. Chronic smoker, advised to quit, continue nicotine replacement 3. Hypertension, continue amlodipine and lisinopril 4. Osteoporosis, continue alendronate and vitamin D 5. DVT prophylaxis?Heparin SC Charges/Coding Visit Charges OBSV E&M: 97192 Subsequent observation care L3
--- NOTE | 2022-02-21 16:00 | CASEMGMT ---
NÉSTOR GREER Assessment: Face to Face with pt for initial transition planning/care coordination assessment. RN PERCY introduced self and role at [facility], pt voices understanding and consents to assessment. Pt is A/O x4 and answers all questions appropriately at this time. Pt sitting up in bed in no distress. Pt dtr Radha and grandson at bedside. Pt dtr asking to speak to nurse regarding MRI. Notified pt nurse. Care providers, pharmacy, and demographics verified/updated. Admitting Dx: Acute CVA PCP:Diana Mina NP Specialists:Pt denies. Preferred Pharmacy: [facility] Insurance: [facility] Prescription Benefit: yes LW/HPOA: Pt denies having a LW/DPOA and denies need for info regarding AD. LNOK: bertha Gamar; Radha Beyer dtr Living Arrangements: Pt lives with sister in a two story house with 3 steps to enter with a rail. Pt sister lives upstairs and pt uses the main floor. Pt denies concerns at home. Transportation: Pt chooses not to drive. Pt dtr Radha provides transportation. DME/HHC/SNF: Pt has a w/c and cane at home but does not use either. Pt denies hx of HHC or SNF stays. Pt states no concerns with going home at time of dc. Pt states no further concerns/needs. CM to follow. Advised pt to ask CM if any further question/concerns/needs arise, voices understanding. Pt Goal: Home Plan: Home
--- NOTE | 2022-02-21 16:46 | CM.ED ---
SW met with patient privately and completed the PHQ9. She reports that she does cleaning around the house and watches TV. Reports that her daughter and grandson take good care of her and reports no depression symptoms. PHQ9 score of 0.
[2022-02-21] MEDS: Clopidogrel Bisulfate 75 MG Tablet PO (20:39)
[2022-02-21] MEDS: Atorvastatin Calcium 40 MG Tablet PO (20:40)
[2022-02-21] MEDS: Heparin Injection (Vial) 5,000 UNIT/ML VIAL 5000 UNIT SC (20:43)
[2022-02-22] VITALS (11 sets, daily range): BP systolic 135–167; BP diastolic 69–80; PULSE 59–80; RESP 16–18; TEMP 36.6–36.8; O2SAT 96–97; BMI 18.8
[2022-02-22] MEDS: Alendronate Sodium 70 MG Tablet PO (05:22)
[2022-02-22] MEDS: Clopidogrel Bisulfate 75 MG Tablet PO (08:19)
[2022-02-22] MEDS: amLODIPine 10 MG Tablet PO (08:19)
[2022-02-22] MEDS: Aspirin 81 MG TAB.CHEW PO (08:19)
[2022-02-22] MEDS: Cholecalciferol (VIT D3) 25 MCG TABLET (1,000 UNITS) PO (08:19)
[2022-02-22] MEDS: Lisinopril 40 MG Tablet PO (08:19)
[2022-02-22] MEDS: Heparin Injection (Vial) 5,000 UNIT/ML VIAL 5000 UNIT SC (08:20)
--- NOTE | 2022-02-22 11:18 | PCM.DC ---
Discharge Instructions Diet Discharge Diet: Low fat / Low cholesterol and 2000 mg Sodium Diet Activity Discharge Activity: Return to Normal Activity Follow Up Care Test Results: Test results from this visit will be discussed in further detail at your follow-up appointment, if applicable. Discharge Plan Admission Admit Date/Time: 02/21/22 15:28 Primary Reason for Your Visit: Acute CVA Attending Provider: Johanny Dunbar Primary Care Provider: Diana Mina NP Consulting Providers: Jono Watson Instructions Additional Instructions / Restrictions: Take note of your new medications You are strongly advised to stop smoking Follow-up with your neurologist in 2 to 4 weeks Follow-up with PCP within 1 week. You have been referred to speech therapy in the outpatient. Discharge Orders/Prescriptions Prescriptions: New atorvastatin 40 mg Tablet 40 mg PO QHS 30 Days Qty: 30 0RF hydralazine 10 mg Tablet 10 mg PO BID 30 Days Qty: 60 0RF clopidogrel 75 mg Tablet 75 mg PO DAILY 30 Days Qty: 30 0RF aspirin 81 mg Tablet,Chewable 81 mg PO BREAKFAST 30 Days Qty: 30 0RF Continued alendronate 70 mg tablet 70 mg PO DYE Label Comments: Take 1 tablet by mouth one time a week. Take with a full glass of water, on an empty stomach; do NOT lie down for 30minutes. amlodipine 10 mg tablet 10 mg PO DAILY Label Comments: Take 1 tablet by mouth once daily. lisinopril 40 mg tablet 40 mg PO DAILY Label Comments: TAKE 1 TABLET BY MOUTH DAILY cholecalciferol (vitamin D3) 50 mcg (2,000 unit) capsule 2,000 unit PO DAILY Label Comments: Take 1 capsule by mouth once daily. Referrals / Follow Up: Elder Garrison MD [Non-Staff] - Within 1 Month Care Physician,No Primary [Non-Staff] - Diana Mina NP, [employer] [Primary Care Provider] - Disposition Disposition (needs filled in before D/C Order can be placed): Home, Self Care
[2022-02-22] MEDS: hydrALAZINE 10 MG Tablet PO (14:14)
--- NOTE | 2022-02-22 14:45 | DS.PCM_ITS ---
Providers Date of Admission: 02/21/22 Date of Discharge: 02/22/22 Primary Care Physician: JONY Kelly Reason For Visit: ACUTE CVA Diagnosis Discharge Diagnosis (1) CVA (cerebral vascular accident): Status: Acute Code(s): I63.9 - Cerebral infarction, unspecified Plan 1. Acute CVA 2. Chronic smoker 3. Hypertension 4. Osteoporosis Medications at Discharge Home Medications alendronate 70 mg tablet 70 mg PO DYE BONES 02/20/22 amlodipine 10 mg tablet 10 mg PO DAILY blood pressure 02/20/22 cholecalciferol (vitamin D3) 50 mcg (2,000 unit) capsule 2,000 unit PO DAILY vitamin 02/20/22 lisinopril 40 mg tablet 40 mg PO DAILY blood pressure 02/20/22 aspirin 81 mg chewable tablet 81 mg PO BREAKFAST 30 days #30 tabs 02/22/22 atorvastatin 40 mg tablet 40 mg PO QHS 30 days #30 tabs 02/22/22 clopidogrel 75 mg tablet 75 mg PO DAILY 30 days #30 tabs 02/22/22 hydralazine 10 mg tablet 10 mg PO BID 30 days #60 tabs 02/22/22 Hospital Course Operations None Procedures 2-D Echocardiogram Summary of Care Provided Minutes Spent on Discharge: 35 Hospital Course: 67-year-old female with past medical history of chronic smoking, hypertension, osteoporosis who comes in with sudden onset of slurred speech and missing her mouth while drinking and smoking with her sister. Patient was found to be confused. She also had slurred speech. This started about 30 minutes prior to admission. Her symptoms appear to have improved on admission. Her admitting NIHSS score was 1. Patient was a tPA candidate but declined tPA because she did not find her right hand weakness to be disabling. Patient was admitted to the progressive care unit, monitored on telemetry. No a trial fibrillation found. MRI of the brain showed left MCA stroke with previous multiple old infarcts involving the right parietal?occipital lobe and right cerebellum. This was believed to be cardioembolic. CTA of the chest shows mild(<50%) bilateral carotid stenosis. Lipid profile showed triglycerides 101, total cholesterol 135, LDL 73, HDL 42. 2D echo showed EF of 55 to 60%, negative bubble study, no valvular abnormality, stage I diastolic dysfunction. HbA1c is 5.1. She was started on aspirin, statin, Plavix was added. Teleneurology was consulted. Patient was asked to continue on dual antiplatelet with aspirin and Plavix for 3 weeks and then continue on aspirin monotherapy. She was strongly asked to stop smoking. She was referred to outpatient neurology within 1 month. Patient was seen by PT and OT and had no deficit. She was found not to have any slurred speech during this admission. She was able to swallow okay. She had reportedly intermittent slurred speech. Speech therapy was unable to see the patient prior to discharge. Patient was referred for outpatient speech therapy evaluation. On the day of discharge, patient was seen and examined. Denied any new complai nt. Her speech appeared okay to me. Her blood pressure was uncontrolled. Started on hydralazine 10 mg p.o. twice daily. She was asked to follow-up with her primary care doctor within 1 week. Physical Exam Narrative Physical exam: General: Alert, Oriented x3, Cooperative, No apparent distress HEENT: Atraumatic Oral: Moist Mucosa Neck: Supple Lungs: Clear to auscultation Cardiovascular: HS I+II, regular, no murmurs Abdomen: Bowel Sounds Present, Soft, Non Tender Extremities: No edema Skin: No rashes, No breakdown Neurological: Cranial nerves II to XII intact, power 5/5 in all extremities, sensation is intact Psych/Mental Status: Appropriate Weight / BMI Weight Weight: 46.7 kg Body Mass Index (BMI) 18.8 ABG / Lab / Microbiology Data Result Diagrams: 02/21/22 06:25 02/21/22 06:25 Radiography Diagnostic Testing: Radiology Impression Echocardiogram 02/20/22 21:07 Interpretation Summary The estimated ejection fraction is 55-60 %.Moderate LVH Normal LV systolic function Negative Buble sthudy Grade#1 Diastolic Dysfunction No previous study to compare _ Ordering Physician: Jono Watson Referring Physician: Diana Mina Performed By: Sujit, Melisa, RDCS D/C Instructions Discharge Diet: Low fat / Low cholesterol and 2000 mg Sodium Diet Meaningful Use Info Meaningful Use Diagnoses (Choose all that apply): Ischemic CVA CVA Therapy Assessed for PT,OT and/or ST?: Yes Ischemic Stroke Antithrombotic order at d/c?: Yes Dx of Atrial fib/flutter?: No Anticoagulant at discharge?: No Reason anticoagulant not ordered: Treatment not Indicated Statins at discharge?: Yes Primary Dx Acute Ischemic CVA?: Yes IV tPA ordered during stay?: No Reason IV t-PA not ordered: Drug Declined by Patient Discharge Plan Admission Admit Date/Time: 02/21/22 15:28 Primary Reason for Your Visit: Acute CVA Attending Provider: Johanny Dunbar Primary Care Provider: Diana Mina NP Consulting Providers: Jono Watson Instructions Additional Instructions / Restrictions: Take note of your new medications You are strongly advised to stop smoking Follow-up with your neurologist in 2 to 4 weeks Follow-up with PCP within 1 week. You have been referred to speech therapy in the outpatient. You are to be on aspirin and Plavix for 3 weeks and continue on aspirin daily Discharge Orders/Prescriptions Prescriptions: New atorvastatin 40 mg Tablet 40 mg PO QHS 30 Days Qty: 30 0RF hydralazine 10 mg Tablet 10 mg PO BID 30 Days Qty: 60 0RF clopidogrel 75 mg Tablet 75 mg PO DAILY 30 Days Qty: 30 0RF aspirin 81 mg Tablet,Chewable 81 mg PO BREAKFAST 30 Days Qty: 30 0RF Continued alendronate 70 mg tablet 70 mg PO DYE Label Comments: Take 1 tablet by mouth one time a week. Take with a full glass of water, on an empty stomach; do NOT lie down for 30minutes. amlodipine 10 mg tablet 10 mg PO DAILY Label Comments: Take 1 tablet by mouth once daily. lisinopril 40 mg tablet 40 mg PO DAILY Label Comments: TAKE 1 TABLET BY MOUTH DAILY cholecalciferol (vitamin D3) 50 mcg (2,000 unit) capsule 2,000 unit PO DAILY Label Comments: Take 1 capsule by mouth once daily. Other Ambulatory Orders: 30 Day Event Recorder Preventi (Routine) Location: None Selected Ordered By: Dr. Johanny Dunbar Referrals / Follow Up: Elder Garirson MD [Non-Staff] - Within 1 Month Care Physician,No Primary [Non-Staff] - Diana Mina FLORICULTURE PROFESSOR, FLORICULTURE PROFESSOR-C [Primary Care Provider] - Disposition Disposition (needs filled in before D/C Order can be placed): Home, Self Care Charges/Coding Visit Charges Inpatient E&M: 57705 Disch Hosp
== END 2022-02-22 15:45 | disposition home or self-care (01) | DRG 66 ==
LOC: ED 19:34 → PCU 20:37
PROVIDERS: Admitting Provider Hospitalist; Emergency Provider Emergency Medicine; PCP Registered Nurse; Referring Provider Internal Medicine; Visit Provider Internal Medicine
DX: I63.412 Cerebral infarction due to embolism of left middle cerebral artery (principal); E87.6 Hypokalemia; I10 Essential (primary) hypertension; I65.23 Occlusion and stenosis of bilateral carotid arteries; F17.210 Nicotine dependence, cigarettes, uncomplicated; R29.810 Facial weakness; R47.81 Slurred speech; R27.0 Ataxia, unspecified; R29.702 NIHSS score 2; R29.700 NIHSS score 0; M81.0 Age-related osteoporosis without current pathological fracture; Z79.82 Long term (current) use of aspirin; Z79.83 Long term (current) use of bisphosphonates; Z79.899 Other long term (current) drug therapy; Z86.73 Personal history of transient ischemic attack (TIA), and cerebral infarction without residual deficits
CPT/HCPCS: 36415; 70450; 70496; 70498; 70551; 71045; 80048; 80061; 81001; 82077; 83036; 83735; 84484; 85025; 85610; 85730; 93005; 93306; 94762; 97161; 97165; 99285; 99406; Q9967; A4216

== ENCOUNTER 2022-03-31 14:15 | Inpatient (IN) | payer MEDICARE, SELFPAY ==
[2022-03-31] VITALS (13 sets, daily range): BP systolic 126–155; BP diastolic 48–72; PULSE 81–113; RESP 12–20; TEMP 36.2–36.9; O2SAT 95–99; BMI 19.6; BMI 18.0
--- NOTE | 2022-03-31 14:29 | EKG12_ITS ---
Test Reason : STROKE Blood Pressure : / mmHG Vent. Rate : 106 BPM Atrial Rate : 106 BPM P-R Int : 186 ms QRS Dur : 096 ms QT Int : 304 ms P-R-T Axes : 081 014 114 degrees QTc Int : 403 ms Sinus tachycardia Incomplete right bundle branch block ST & T wave abnormality, consider lateral ischemia Abnormal ECG Confirmed by VIKRAM PARHAM, HEATHER ([id number]), editor index PABLO SHEA ([id number]) on 04/01/2022 9:08:55 AM Referred By: CHRISTIANO Confirmed By:HEATHER SUE MD
--- NOTE | 2022-03-31 14:29 | CT_ITS ---
We are attempting to reach an attending provider to discuss findings. An addendum with communication details will be sent when the communication is complete. STUDY: CT HEAD STROKE PROTOCOL W/O CONTRAST INJECTION REASON FOR EXAM: Female, 67 years old. Neuro deficit, acute, stroke suspected RADIATION DOSAGE (If Supplied By Facility): CTDIvol = ( 44.99 ) mGy, DLP = ( 711.75 ) mGycm TECHNIQUE: Transaxial CT imaging of the brain was performed without administration of intravenous contrast material. Individualized dose optimization techniques were used for this CT. COMPARISON: Comparison is made with prior study 02/20/2022. FINDINGS: Normal soft tissue structures. Normal calvarium. There is mild cerebral atrophy with widening of the extra-axial spaces and ventricular dilatation. There are areas of decreased attenuation within the white matter tracts of the supratentorial brain, consistent with microvascular disease changes. Old lacunar infarct in the right basal ganglion. Normal brainstem. Stable focal and subtle malacia in the posterior inferior aspect of the right cerebellar hemisphere. There is also evidence of encephalomalacia in the posterior right parietal occipital lobes. There is no intracranial hemorrhage. There are no findings of an acute ischemic infarction. Atherosclerotic calcification of the cavernous portions of the internal carotid arteries bilaterally. Normal visualized paranasal sinuses. ASPECT score: 9 CT/STROKE Brain/Head without Cont IMPRESSION: Chronic involutional changes of the brain. Electronically Signed: Freedom Jimenez MD at 14:50 EDT ,
--- NOTE | 2022-03-31 14:30 | CT_ITS ---
STUDY: CTA HEAD AND NECK WITH CONTRAST REASON FOR EXAM: Female, 67 years old. Neuro deficit, acute, stroke suspected RADIATION DOSAGE (If Supplied By Facility): CTDIvol = ( 15.45 ) mGy, DLP = ( 473.48 ) mGycm TECHNIQUE: CT angiography was performed with a multi-detector CT scanner. Data acquisition was obtained from the skull base through the vertex following intravenous administration of IV 100mL Isovue-370. MIP images were reconstructed from the axial data set. Post-processing of the angiographic images was performed, with multiplanar reformation and 3D reconstruction. Individualized dose optimization techniques were used for this CT. COMPARISON: Comparison is made with prior examination dated 02/20/2022. FINDINGS: Normal bilateral petrous carotid arteries. There is calcified plaque formation of the right cavernous carotid artery, with a mild stenosis (less than 50%). There is calcified plaque formation of the left cavernous carotid artery, with a mild stenosis (less than 50%). Normal right A1 segments of the anterior cerebral artery. Normal left A1 segments of the anterior cerebral artery. Normal intact anterior communicating artery (ACOM). Normal bilateral A2 segments of the anterior cerebral arteries. Normal right M1 and M2 segments of the middle cerebral arteries, with a normal M1 bifurcation. Normal left M1 and M2 segments of the middle cerebral arteries, with a normal M1 bifurcation. Normal right posterior communicating artery (PCOM). Normal left posterior communicating artery (PCOM). Normal bilateral vertebral arteries. Normal basilar artery with a normal basilar bifurcation. The visualized bilateral superior cerebellar (SCA) arteries are normal. Normal bilateral P1, P2 and visualized P3 segments of the posterior cerebral arteries. There is no demonstrated aneurysm of the [place] of [place]. There is opacification of the right sphenoid sinus. AORTIC ARCH: There is atherosclerotic calcific plaque formation of the aortic arch and great vessels arising from the aortic arch, without a hemodynamically significant stenosis. There is a normal origin of the brachiocephalic, left common carotid, and left subclavian arteries. Moderate amount of mural thrombus is seen especially along the left lateral aspect of the aortic arch. Calcified plaques are seen at the origin of the left subclavian artery and brachiocephalic artery. RIGHT CAROTID ARTERIES: Normal right common carotid artery (CCA). Normal right common carotid bulb. There is extensive atherosclerotic plaque formation of the origin of the right internal carotid artery with an estimated stenosis of greater than 70%. Normal visualized cervical portion of the right internal carotid artery. Normal origin of the right external carotid artery (ECA). LEFT CAROTID ARTERIES: Normal left common carotid artery (CCA). Normal left common carotid bulb. There is severe atherosclerotic plaque formation of the origin of the left internal carotid artery with a near complete occlusion. Normal visualized cervical portion of the left internal carotid artery. Normal origin of the left external carotid artery (ECA). VERTEBRAL ARTERIES: There is enhancement within the bilateral vertebral arteries with a small right vertebral artery, and a dominant left vertebral artery. CT/STROKE CTA Head AND Neck W/Con IMPRESSION: High-grade stenosis of the carotid arteries bilaterally worse on the left side. N.B. : The above Results were Read Back by Freedom Jimenez MD to Dr KEYON MD, and understanding confirmed on 03/31/2022 15:00:03 (ET). Electronically Signed: Freedom Jimenez MD at 15:02 EDT ,
--- NOTE | 2022-03-31 14:30 | NURSING ---
1428 STROKE ALERT CALLED
--- NOTE | 2022-03-31 14:36 | CM.ED ---
SW responded to stroke alert. SW provided emotional support to patient's daughter. Daughter reports that patient was here last month with similar symptoms. SW remains available if needs arise. Plan: Emotional support Mavis MELCHOR
--- NOTE | 2022-03-31 14:39 | ED.RN ---
called [facility] to inform pt is back in room from CT scan.
[2022-03-31 14:41] LABS: Bedside Glucose 117 mg/dL (74-106)
--- NOTE | 2022-03-31 14:42 | ED.VIS.STROK ---
HPI History of Present Illness Chief Complaint: Stroke Alert Informant: patient and family Narrative Narrative: Presents here with daughter for concerns of word salad and not making sense when she saw her at 2 PM today. Last normal 5 PM yesterday by her daughter. She has been there taking care of her since she had a stroke last month. She is in process of coming to her daughter's home. She reports she had troubles with moving her left arm and lip droop at that time the aunt was there. Records noted she had acute left MCA territory stroke chronic right occipital parietal and cerebellar stroke. She was on aspirin and recommended dual antiplatelet therapy for 3 weeks. Her presentation was back on February 20 at that time. This is over a month ago she has finished her Plavix. Per daughter patient was picking things up off the ground. Patient denies any recent vomiting diarrhea denies cough denies urinary symptoms. [facility] similar [facility]: [facility] Medical History CVA (cerebral vascular accident) HTN (hypertension) Home Medications alendronate 70 mg tablet 70 mg PO MO BONES 02/20/22 [History Last Taken 03/30/22] amlodipine 10 mg tablet 10 mg PO DAILY blood pressure 02/20/22 [History Last Taken 03/31/22] cholecalciferol (vitamin D3) 50 mcg (2,000 unit) capsule 2,000 unit PO DAILY supplement 02/20/22 [History Last Taken 03/31/22] lisinopril 40 mg tablet 40 mg PO DAILY blood pressure 02/20/22 [History Last Taken 03/31/22] aspirin 81 mg chewable tablet 81 mg PO BREAKFAST heart health 03/31/22 [History Last Taken 03/31/22] atorvastatin 40 mg tablet 40 mg PO QHS cholesterol 03/31/22 [History Last Taken 03/30/22] hydralazine 10 mg tablet 10 mg PO BID anxiety 03/31/22 [History Last Taken 03/31/22] Allergy/AdvReac Type Severity Reaction Status Date / Time No Known Allergies Allergy Verified 03/31/22 14:19 Family History Father Cancer Mother Cancer Other Diabetes Surgical History (Reviewed 03/31/22 @ 15:59 by Navya Sky PATIENT CONSUMER MARKETER, PATIENT CONSUMER MARKETER-C) H/O tubal ligation Social History (Updated 03/31/22 @ 16:52 by Alessandra Buchanan) household members: other details: In the process of moving in with daughter Smoking Status: Current every day smoker tobacco type: cigarettes alcohol intake: never substance use type: does not use ROS ROS ED Constitutional Constitutional ED: Denies chills, fever(s) or sweats Eyes Eyes: Denies change in vision ENT ENT ED: Denies dysphagia or sore throat Cardiovascular Cardiovascular: Denies chest pain, leg edema, palpitations or racing heartbeat Respiratory/Chest Respiratory/Chest: Denies cough, dyspnea or dyspnea on exertion Gastrointestinal Gastrointestinal: Denies abdominal pain, diarrhea, nausea or vomiting Genitourinary Genitourinary ED: Denies dysuria, hematuria or urinary frequency Musculoskeletal Musculoskeletal: Denies back pain, extremity pain or neck pain Integumentary Denies rash or wounds Neurologic Neurologic: Reports other Details: Word salad ; Denies headache(s), paresthesias or weakness EXAM Physical Exam Const Vital Signs: 03/31/22 14:19 03/31/22 14:29 03/31/22 14:42 Temperature 97.2 F L Temperature Source Temporal Pulse Rate 113 H 111 H 108 H Respiratory Rate 12 18 18 Blood Pressure 149/68 H 155/57 H 155/57 H Blood Pressure Mean 95 89 89 Pulse Ox 99 98 99 Oxygen Delivery Method Room Air Room Air Room Air 03/31/22 14:59 03/31/22 15:29 Temperature Temperature Source Pulse Rate 107 H 106 H Respiratory Rate 18 20 H Blood Pressure 141/60 H 130/53 H Blood Pressure Mean 87 78 Pulse Ox 95 96 Oxygen Delivery Method Room Air Room Air Constitutional Narrative: Thin female nontoxic General Appearance ED: NAD HEENT Reports moist mucous membranes normocephalic and atraumatic Eyes PERRL, EOMs intact bilaterally and conjunctivae normal General Eye ED: Yes normal appearance of both eyes Neck no lymphadenopathy and supple General: Negative for tenderness Chest Wall Chest: Negative for tenderness Resp normal respiratory effort and normal air movement Effort and Inspection: symmetric chest movement; Negative for respiratory distress Cardio regular rate, regular rhythm and no murmurs Peripheral Pulses: pulses 2+ throughout GI normal to inspection, nondistended, normoactive bowel sounds and non-tender Palpation: Negative for guarding or rebound tenderness present Back/Spine no CVA tenderness and no thoracic nor lumbar tenderness Extremity normal to inspection General Extremety ED: Negative for edema or tenderness General Extremity: Negative for edema Neuro oriented x3, CN's II-XII intact bilaterally and no sensory deficits noted Sensorium / Orientation: awake and alert Skin no rashes or lesions noted and no wounds NIHSS NIHSS Initial: 1a Level of Consciousness: 0 1b LOC Questions (Score 2 if aphasic/stupor): 2 1c LOC Commands (Only score 1st attempt): 0 2 Best Gaze (If aphasic, use reflexive mvmts.): 0 3 Visual: 0 4 Facial Palsy: 0 5 Motor Arm Right (UN = amputation/fusion): 0 5 Motor Arm Left: 0 6 Motor Leg Right: 0 6 Motor Leg Left: 0 7 Limb ataxia (Only + if out of proportion): 0 8 Sensory (Aphasia/stupor=0 or 1, coma=2): 0 9 Best Language: 0 10 Dysarthria (mute, coma=2, intubated=UN): 0 11 Extinction and Inattention (only scored if +): 0 Total Score: 2 MDM MDM MDM Narrative Medical decision making narrative: Patient symptoms well over 4 and half hours however within 24 hours from 5 PM last night which would be 21hours point of evaluation. NIH of 2 due to not knowing her age reporting is 53 along with a month being January. Stroke protocol initiated. Spoke with radiologist CT head without contrast negative. CT angiogram discussion with radiologist concerning of high-grade stenosis of carotids bilateral left greater than right. Left side with near occlusion. Right side greater than 70%. Spoke with stroke neurologist Dr. Ingram, discussed patient's history and findings. Recommend repeat MRI in EEG while in the hospital. She will likely need carotid intervention with recurrent symptoms. I spoke with vascular surgeon here Dr. Cai, who is capable of doing the procedure here during this hospitalization. He states he would likely stress test here in the hospital prior to the procedure. This will be planned by him. Therefore I spoke with hospitalist Dr. Keenan for admission to PCU. 1550: rediscussed with Dr. Cai for possible anticoagulant with heparin with critical stenosis. At this time he states to load with Plavix 300 mg in the ED will continue 75 mg daily along with her aspirin and statin. Patient admitted to PCU for further management. Lab Data Attestation: I reviewed the patient's lab results. Labs: Laboratory Results - last 24 hr 03/31/22 03/31/22 03/31/22 14:21 14:22 14:22 WBC 18.1 H RBC 4.24 Hgb 13.2 Hct 37.9 MCV 89.4 MCH 31.1 MCHC 34.8 RDW Std Deviation 39.2 RDW Coeff of Ed 12.1 Plt Count 356 MPV 8.2 Immature Gran % (Auto) 0.400 Neut % (Auto) 76.6 H Lymph % (Auto) 16.9 L [place] % (Auto) 4.9 Eos % (Auto) 0.8 Baso % (Auto) 0.4 Absolute Neuts (auto) 13.8 H Absolute Lymphs (auto) 3.06 Nucleated RBC % 0 PT 12.7 INR 1.0 APTT 31.1 Sodium Potassium Chloride Carbon Dioxide Anion Gap BUN Creatinine Estim Creat Clear Calc Est GFR (MDRD) Af Amer Est GFR (MDRD) Non-Af BUN/Creatinine Ratio Glucose Calcium Troponin I High Sens Urine Color Urine Clarity Urine pH Ur Specific [place] Urine Protein Urine Glucose (UA) Urine Ketones Urine Occult Blood Urine Nitrite Urine Bilirubin Urine Urobilinogen Ur Leukocyte Esterase Urine RBC Urine WBC Ur Squamous Epith Cells Urine Bacteria Urine Mucus POC Glucose 117 H 03/31/22 03/31/22 14:22 15:24 WBC RBC Hgb Hct MCV MCH MCHC RDW Std Deviation RDW Coeff of Ed Plt Count MPV Immature Gran % (Auto) Neut % (Auto) Lymph % (Auto) [place] % (Auto) Eos % (Auto) Baso % (Auto) Absolute Neuts (auto) Absolute Lymphs (auto) Nucleated RBC % PT INR APTT Sodium 130 L Potassium 4.7 Chloride 100 Carbon Dioxide 21.0 Anion Gap 9 BUN 14 Creatinine 0.89 Estim Creat Clear Calc 43.46 Est GFR (MDRD) Af Amer 81 Est GFR (MDRD) Non-Af 67 BUN/Creatinine Ratio 15.7 Glucose 111 H Calcium 9.8 Troponin I High Sens 30 Urine Color Yellow Urine Clarity Clear Urine pH 7.0 Ur Specific [place] 1.010 Urine Protein Negative Urine Glucose (UA) Normal Urine Ketones Negative Urine Occult Blood Negative Urine Nitrite Negative Urine Bilirubin Negative Urine Urobilinogen Normal Ur Leukocyte Esterase 500 H Urine RBC 0 SEEN Urine WBC 0-5 SEEN Ur Squamous Epith Cells 0-5 SEEN Urine Bacteria 0 SEEN Urine Mucus 0 SEEN POC Glucose Radiography Diagnostic Testing: Clinical Impression(s) from Imaging Studies Brain CT 03/31/22 14:29 IMPRESSION: Chronic involutional changes of the brain. Electronically Signed: Freedom Jimenez MD at 14:50 EDT , ADDENDUM: 03/31/22 1501 IMPRESSION: Chronic involutional changes of the brain. Electronically Signed: Freedom Jimenez MD at 14:50 EDT , N.B. : The above Results were Read Back by Dmitri Jones MD to Dr Delano Penaloza MD, and understanding confirmed on 03/31/2022 14:54:09 (ET). ADDENDUM: 03/31/22 1520 IMPRESSION: Chronic involutional changes of the brain. Electronically Signed: Freedom Jimenez MD at 14:50 EDT , N.B. : The above Results were Read Back by Dmitri Jones MD to Dr Delano Penaloza MD, and understanding confirmed on 03/31/2022 14:54:09 (ET). Head/Neck CTA 03/31/22 14:30 IMPRESSION: High-grade stenosis of the carotid arteries bilaterally worse on the left side. N.B. : The above Results were Read Back by Freedom Jimenez MD to Dr KEYON MD, and understanding confirmed on 03/31/2022 15:00:03 (ET). Electronically Signed: Freedom Jimenez MD at 15:02 EDT , ADDENDUM: 03/31/22 1509 IMPRESSION: High-grade stenosis of the carotid arteries bilaterally worse on the left side. N.B. : The above Results were Read Back by Freedom Jimenez MD to Dr KEYON MD, and understanding confirmed on 03/31/2022 15:00:03 (ET). Electronically Signed: Freedom Jimenez MD at 15:02 EDT , EKG Initial EKG: Attestation: I personally reviewed and interpreted this EKG as follows: Comments: Sinus rhythm 106, no ST changes, T wave version anterior leads along with leads I and aVL, incomplete right bundle branch block. Similar to her last EKG in February. Critical Care Time Critical Care Time: Yes Critical care time (excluding procedures): 30-74 minutes, Discussing w/Patient &/or Family/Automobile Mechanic Motor, Discussing w/Consultants, Arranging Admission or Transfer, Performing Direct Patient Care at Bedside and - (35 minutes) Discharge Plan Dx/Rx/DC Orders Clinical Impression: Recurrent cerebrovascular accidents (CVAs), Continuous tobacco abuse, Carotid stenosis, bilateral, History of hyperlipidemia Disposition Disposition: Acute Care Hospital [facility] Discharge Date/Time: 03/31/22 16:22
[2022-03-31 14:45] LABS: Absolute Lymphocyte Count 3.06 X10^3/uL (0.83-4.51); Absolute Neutrophil Count 13.8 X10^3/uL (2.0-7.7); Basophil# 0.08 X10^3/uL; Basophil% 0.4 % (0-1); Eosinophil# 0.15 X10^3/uL; Eosinophils% 0.8 % (0-5); Hematocrit 37.9 % (37-47); Hemoglobin 13.2 g/dL (12.0-15.0); Lymphocyte # 3.06 X10^3/ul (0.83-4.51); Lymphocyte % 16.9 % (19-41); Mean Corp Hgb Conc 34.8 g/dL (32-36); Mean Corpuscular Hgb 31.1 pg (27.0-32.0); Mean Corpuscular Volume 89.4 fL (81-99); Mean Platelet Vol. 8.2 fl (6.2-12.0); Monocyte# 0.89 X10^3/uL; Monocyte% 4.9 % (0-10); NRBC Flagged by Analyzer 0 % (0-5); Neutrophil # 13.81 X10^3/uL (2.7-7.7); Neutrophil % 76.6 % (47-70); Platelet Count 356 K/mm3 (150-450); RBC Distribution Width CV 12.1 % (11.6-14.6); RBC Distribution Width SD 39.2 fl (35.1-43.9); Red Blood Count 4.24 M/mm3 (4.2-5.4); White Blood Count 18.1 K/mm3 (4.4-11.0)
[2022-03-31 14:53] LABS: Prothrombin Time (Protime)PT. 12.7 SECONDS (11.7-14.9)
[2022-03-31 14:54] LABS: Partial Thromboplast Time 31.1 Seconds (24.1-36.2)
[2022-03-31 15:01] LABS: Anion Gap 9 (5-15); BUN 14 mg/dL (7-18); BUN/Creat Ratio 15.7 RATIO (10-20); Calcium,Total 9.8 mg/dL (8.5-10.1); Chloride 100 mmol/L (98-107); Creatinine, Serum 0.89 mg/dL (0.55-1.02); EST Glomerular Filtration Rate 67 mL/min (>60); Est Glom Filt Rate - Afr Amer 81 mL/min (>60); Estimated Creatinine Clearance 43.46 ml/min; Glucose 111 mg/dL (74-106); Potassium 4.7 mmol/L (3.5-5.1); Sodium Level 130 mmol/L (136-145); Troponin-I HS 30 pg/mL (3.0-54.0)
--- NOTE | 2022-03-31 15:13 | CHAPLAIN ---
Type of Pastoral Visit ___ Initial Visit ___ Follow-up Visit ___ On-call Visit ___ General Patient Visit ___ Spiritual Assessment ___ Family Conference ___ Bereavement _x__ Rapid Response ___ Code Blue ___ Other (describe below) Pastoral Care Referral From ___ Patient ___ Family ___ Nurse ___ Physician ___ Extension Work Instructor ___ Control Room Helper _x__ Other (describe below) Sacrament/Intervention ___ Active listening ___ Anointing ___ Tenriism ___ Bereavement ___ Communion ___ Mariia exploration ___ ___ Life review ___ Prayer ___ Reconciliation ___ Sacrament of Sick _x__ Supportive presence ___ Wedding ___ Other (describe below) Pastoral Comments introduced self to daughter of patient who had been taken to CT scan upon arrival; daughter states that she is fine; patient returned to room and she appears alert and oriented; no further support desired
[2022-03-31 15:28] LABS: Bacteria 0 SEEN /hpf (None Seen); Mucous, Urine 0 SEEN /hpf (<or=2+); Red Blood Cells-Urine 0 SEEN /hpf (0-5)
[2022-03-31 15:33] LABS: Color, Urine Yellow (Yellow); Glucose, Dipstick Normal (Normal); Ketone-Dipstick Negative (Negative); Leukocyte Esterase-Dipstick 500 /ul (Negative); Nitrite-Dipstick Negative (Negative); Occult Blood-Urine Negative /ul (Negative); Protein-Dipstick Negative (Negative); Urine Bilirubin Dipstick Negative (Negative); Urine Clarity Clear (Clear); Urine Urobilinogen Normal (Normal)
[2022-03-31 15:49] LABS: Squamous Epithelial Cells - UA 0-5 SEEN /hpf (5-10); White Blood Cells 0-5 SEEN /hpf (0-5)
--- NOTE | 2022-03-31 15:51 | PCM.HP.STD ---
Documented by User: Navya Swanson NP, DRILLING ASSISTANT-C 03/31/22 16:07 HPI - General General Date of Admission: 03/31/22 Date of Service: 03/31/22 Chief Complaint: Speech changes. HPI Narrative SIERRA SANTANA, is a 67 F who presents to the emergency room due to speech changes, transient altered mental status. Daughter at bedside states that she last saw patient while 5 PM last evening. She went to patient's home today at 2 PM. Patient was having difficulty getting her words out and was not able to communicate correctly. Daughter states patient seemed confused and was unable to do usual daily activities. Patient denies unilateral weakness, vision changes or other neurologic symptoms. Daughter states she has been helping take care of patient since recent stroke. Daughter denies any significant residual deficits from prior stroke. Patient was recently discharged 02/22/2022 following left MCA stroke. CTA of head and neck at that time showed less than 50% stenosis bilaterally. Patient had been on dual antiplatelet therapy for 3 weeks followed by aspirin only. She reports a past medical history of CVA, hypertension, hyperlipidemia, tobacco dependence. [facility] Medical History CVA (cerebral vascular accident) HTN (hypertension) Home Medications alendronate 70 mg tablet 70 mg PO MO BONES 02/20/22 [History Last Taken 03/30/22] amlodipine 10 mg tablet 10 mg PO DAILY blood pressure 02/20/22 [History Last Taken 03/31/22] cholecalciferol (vitamin D3) 50 mcg (2,000 unit) capsule 2,000 unit PO DAILY supplement 02/20/22 [History Last Taken 03/31/22] lisinopril 40 mg tablet 40 mg PO DAILY blood pressure 02/20/22 [History Last Taken 03/31/22] aspirin 81 mg chewable tablet 81 mg PO BREAKFAST heart health 03/31/22 [History Last Taken 03/31/22] atorvastatin 40 mg tablet 40 mg PO QHS cholesterol 03/31/22 [History Last Taken 03/30/22] hydralazine 10 mg tablet 10 mg PO BID anxiety 03/31/22 [History Last Taken 03/31/22] Allergy/AdvReac Type Severity Reaction Status Date / Time No Known Allergies Allergy Verified 03/31/22 14:19 Family History (Updated 03/31/22 @ 15:59 by Navya Swanson NP, DRILLING ASSISTANT-C) Father Cancer Mother Cancer Other Diabetes Surgical History H/O tubal ligation Social History (Updated 03/31/22 @ 15:59 by Navya Swanson NP, DRILLING ASSISTANT-C) household members: other details: In the process of moving in with daughter Smoking Status: Current every day smoker tobacco type: cigarettes alcohol intake: never substance use type: does not use ROS Constitutional Constitutional: Denies change in weight, chills, fatigue, fever(s) or weakness Cardiovascular Cardiovascular: Denies chest pain, edema, lightheadedness, palpitations or syncope Respiratory/Chest Respiratory/Chest: Denies cough, dyspnea, productive cough, shortness of breath at rest, shortness of breath with exertion or wheezing Gastrointestinal Gastrointestinal: Denies abdominal pain, constipation, diarrhea, nausea or vomiting Genitourinary Genitourinary: Denies burning urination, difficulty urinating, dysuria, hematuria, urinary frequency, urinary incontinence or urinary urgency Musculoskeletal Musculoskeletal: Denies back pain, joint pain or muscle weakness Integumentary Integumentary: Denies erythema, lesions, rash or wounds Neurologic Neurologic: Reports abnormal speech and confusion; Denies dizziness, focal weakness, numbness, paresthesias, seizure-like activity or syncope Psychiatric Psychiatric: Denies anxiety or depression Hematologic/Lymphatic Hematologic/Lymphatic: Denies anemia, easy bleeding or easy bruising Allergic/Immunologic Allergic/Immunologic: Denies hives or asthma Vital Signs Vital Signs Vital Signs: 03/31/22 14:19 03/31/22 14:29 03/31/22 14:42 Temperature 97.2 F L Temperature Source Temporal Pulse Rate 113 H 111 H 108 H Respiratory Rate 12 18 18 Blood Pressure 149/68 H 155/57 H 155/57 H Blood Pressure Mean 95 89 89 Pulse Ox 99 98 99 Oxygen Delivery Method Room Air Room Air Room Air 03/31/22 14:59 03/31/22 15:29 Temperature Temperature Source Pulse Rate 107 H 106 H Respiratory Rate 18 20 H Blood Pressure 141/60 H 130/53 H Blood Pressure Mean 87 78 Pulse Ox 95 96 Oxygen Delivery Method Room Air Room Air Weight Weight: 100 lb 12.02 oz Body Mass Index (BMI) 19.6 Physical Exam Const alert and oriented x3 Nutritional Appearance: cachectic HEENT normocephalic and moist oral mucous membranes Eyes PERRL, EOMs intact bilaterally and conjunctivae normal Neck no lymphadenopathy Resp normal respiratory effort and clear to auscultation bilaterally Cardio regular rate, regular rhythm and no murmurs Peripheral Pulses: pulses 2+ throughout GI normal to inspection, nondistended, normoactive bowel sounds, non-tender and non-distended Extremity normal to inspection Skin no rashes or lesions noted Lesions: no lesions Rashes: no rashes Trauma: no lacerations or abrasions Neuro CN's II-XII intact bilaterally, no focal motor deficits, no sensory deficits noted and deep tendon reflexes 2+ bilaterally Neuro Narrative: Mild intermittent dysarthria Psych mental status grossly normal and affect normal Results Lab / Micro Data Result Diagrams: 03/31/22 14:22 03/31/22 14:22 Labs: Laboratory Results - last 24 hr 03/31/22 14:21: POC Glucose 117 H 03/31/22 14:22: WBC 18.1 H, RBC 4.24, Hgb 13.2, Hct 37.9, MCV 89.4, MCH 31.1, MCHC 34.8, RDW Std Deviation 39.2, RDW Coeff of Ed 12.1, Plt Count 356, MPV 8.2, Immature Gran % (Auto) 0.400, Neut % (Auto) 76.6 H, Lymph % (Auto) 16.9 L, [place] % (Auto) 4.9, Eos % (Auto) 0.8, Baso % (Auto) 0.4, Absolute Neuts (auto) 13.8 H, Absolute Lymphs (auto) 3.06, Nucleated RBC % 0 03/31/22 14:22: PT 12.7, INR 1.0, APTT 31.1 03/31/22 14:22: Sodium 130 L, Potassium 4.7, Chloride 100, Carbon Dioxide 21.0, Anion Gap 9, BUN 14, Creatinine 0.89, Estim Creat Clear Calc 43.46, Est GFR (MDRD) Af Amer 81, Est GFR (MDRD) Non-Af 67, BUN/Creatinine Ratio 15.7, Glucose 111 H, Calcium 9.8, Troponin I High Sens 30 03/31/22 15:24: Urine Color Yellow, Urine Clarity Clear, Urine pH 7.0, Ur Specific [place] 1.010, Urine Protein Negative, Urine Glucose (UA) Normal, Urine Ketones Negative, Urine Occult Blood Negative, Urine Nitrite Negative, Urine Bilirubin Negative, Urine Urobilinogen Normal, Ur Leukocyte Esterase 500 H, Urine RBC 0 SEEN, Urine WBC 0-5 SEEN, Ur Squamous Epith Cells 0-5 SEEN, Urine Bacteria 0 SEEN, Urine Mucus 0 SEEN Radiology Impression Brain CT 03/31/22 14:29 IMPRESSION: Chronic involutional changes of the brain. Electronically Signed: Freedom Jimenez MD at 14:50 EDT , ADDENDUM: 03/31/22 1501 IMPRESSION: Chronic involutional changes of the brain. Electronically Signed: Freedom Jimenez MD at 14:50 EDT , N.B. : The above Results were Read Back by Dmitri Jones MD to Dr Delano Penaloza MD, and understanding confirmed on 03/31/2022 14:54:09 (ET). ADDENDUM: 03/31/22 1520 IMPRESSION: Chronic involutional changes of the brain. Electronically Signed: Freedom Jimenez MD at 14:50 EDT , N.B. : The above Results were Read Back by Dmitri Jones MD to Dr Delano Penaloza MD, and understanding confirmed on 03/31/2022 14:54:09 (ET). Head/Neck CTA 03/31/22 14:30 IMPRESSION: High-grade stenosis of the carotid arteries bilaterally worse on the left side. N.B. : The above Results were Read Back by Freedom Jimenez MD to Dr KEYON MD, and understanding confirmed on 03/31/2022 15:00:03 (ET). Electronically Signed: Freedom Jimenez MD at 15:02 EDT , ADDENDUM: 03/31/22 1509 IMPRESSION: High-grade stenosis of the carotid arteries bilaterally worse on the left side. N.B. : The above Results were Read Back by Freedom Jimenez MD to Dr KEYON MD, and understanding confirmed on 03/31/2022 15:00:03 (ET). Electronically Signed: Freedom Jimenez MD at 15:02 EDT , Assessment & Plan Assessment/Plan (1) Recurrent cerebrovascular accidents (CVAs): PLAN: Plan 1. CVA versus TIA in the setting of recent left MCA stroke with underlying high-grade stenosis of the carotid arteries bilaterally, worse on left-obtain MRI of brain. EEG. Vascular surgery consult. Aspirin, statin. PT/OT/ST. ER tele-neuro consult pending. 2. High-grade carotid stenosis-as noted above. Vascular consult. Aspirin, statin. 3. Hypertension-stable, continue home amlodipine, hydralazine, lisinopril. 4. Hyperlipidemia-continue statin. 5. Tobacco dependence-encourage cessation. DVT prophylaxis-Lovenox This patient was seen by JONY Rubio under the supervision of Dr. Keenan. Time spent examining patient, reviewing data and subsequent management of care: 23 minutes Documented by User: Dr. Kwame Keenan DO 03/31/22 16:31 HPI - General General Date of Admission: 03/31/22 [facility] Medical History CVA (cerebral vascular accident) HTN (hypertension) Home Medications alendronate 70 mg tablet 70 mg PO MO BONES 02/20/22 [History Last Taken 03/30/22] amlodipine 10 mg tablet 10 mg PO DAILY blood pressure 02/20/22 [History Last Taken 03/31/22] cholecalciferol (vitamin D3) 50 mcg (2,000 unit) capsule 2,000 unit PO DAILY supplement 02/20/22 [History Last Taken 03/31/22] lisinopril 40 mg tablet 40 mg PO DAILY blood pressure 02/20/22 [History Last Taken 03/31/22] aspirin 81 mg chewable tablet 81 mg PO BREAKFAST heart health 03/31/22 [History Last Taken 03/31/22] atorvastatin 40 mg tablet 40 mg PO QHS cholesterol 03/31/22 [History Last Taken 03/30/22] hydralazine 10 mg tablet 10 mg PO BID anxiety 03/31/22 [History Last Taken 03/31/22] Allergy/AdvReac Type Severity Reaction Status Date / Time No Known Allergies Allergy Verified 03/31/22 14:19 Family History (Updated 03/31/22 @ 15:59 by Navya Swanson NP, DRILLING ASSISTANT-C) Father Cancer Mother Cancer Other Diabetes Surgical History H/O tubal ligation Social History (Updated 03/31/22 @ 15:59 by Navya Swanson NP, DRILLING ASSISTANT-C) household members: other details: In the process of moving in with daughter Smoking Status: Current every day smoker tobacco type: cigarettes alcohol intake: never substance use type: does not use Results Lab / Micro Data Result Diagrams: 03/31/22 14:22 03/31/22 14:22 Assessment & Plan Assessment/Plan (1) Recurrent cerebrovascular accidents (CVAs): Charges/Coding Addendum Addendum: Patient seen and examined independently. Data and vitals reviewed. I agree with the above note by the nurse practitioner. This is a 59-year-old female who recently had a right MCA stroke presents after family noticed the patient was confused and speaking incoherently. Patient was last seen normal at 1700 on the and was not seen again until 1400 today. Patient underwent a work-up showed no new stroke or CAT scan. She was seen by neurology in the emergency room and recommended further evaluation with an MRI and EEG. Patient did have a CT angiogram that does show bilateral carotid stenosis and vascular surgery was contacted and recommended loading her with 30 mg of clopidogrel and to continue with that daily. Dr. Cai will see the patient in consultation and look at possible intervention during this hospitalization. Physical exam: Patient is awake alert to self and place. Does not know the date. Follows all commands. HEENT head is atraumatic and normocephalic pupils are equal and reactive to light, extraocular muscles are intact. Neck has a positive bruit on her right. Heart is regular in rhythm plus S1-S2 with any murmurs Or Rubs. Lungs Are Clear to Auscultation Bilaterally. Abdomen Is Soft Nontender Nondistended with Normal Bowel Sounds. Extremities Are without Any Signs Clubbing or Edema. Neurologic Cranial Nerves II through XII Grossly Intact, Muscle Strength Is 5-5 throughout. Normal [id number]. Assessment and plan 1. Possible acute stroke. Patient have an MRI as well as an EEG. Given the patient's large recent stroke she is currently at risk for seizures. Follow-up studies and then if stroke is confirmed or seizure then would likely need to consult [facility] teleneurology for further instructions. 2. Carotid stenosis bilaterally. Patient to be loaded with clopidogrel and then continue with 75 mg daily. Vascular surgery consultation for further recommendations. Patient may need further cardiac testing, including a stress test before undergoing any intervention. Case discussed with the patient's family at bedside Visit Charges Inpatient E&M: 34204 Init Hosp L3
--- NOTE | 2022-03-31 15:53 | NURSING ---
Lisbeth STERLING RECURRENT CVA, HIGH GRADE CAROTID STENOSIS
[2022-03-31] MEDS: Clopidogrel Bisulfate 300 MG Tablet PO (15:58)
--- NOTE | 2022-03-31 16:05 | RAD_ITS ---
EXAM: XR CHEST, 1 VIEW CLINICAL INDICATION: Neuro deficit, acute, stroke suspected TECHNIQUE: Frontal view of the chest. This report was created using [employer] report generation technology. COMPARISON: XR Chest dated 02/20/2022 FINDINGS: LUNGS AND PLEURAL SPACES: Normal. No consolidation or edema. No pneumothorax. No effusion. HEART: Normal heart size. MEDIASTINUM: No mediastinal or hilar mass. BONES/JOINTS: No acute abnormality. SOFT TISSUES: Normal. RAD/Chest 1 View IMPRESSION: No acute cardiopulmonary abnormality. No interval change. Electronically Signed: Dmitri Jones MD at 16:49 EDT ,
--- NOTE | 2022-03-31 16:24 | MRI_ITS ---
STUDY: MRI BRAIN WITHOUT CONTRAST REASON FOR EXAM: Female, 67 years old. CVA TECHNIQUE: Standardized multiplanar fat and water weighted pulse sequences were obtained. COMPARISON: CT and CTA Brain 03/31/2022. MRI brain 02/21/2022. FINDINGS: There is moderate cerebral atrophy with widening of the extra-axial spaces and ventricular dilatation. There are multiple white matter hyperintensities, distributed throughout the deep white matter tracts of the cerebral hemispheres, consistent with moderate chronic white matter ischemic changes. Restricted diffusion left perirolandic region. This appears decreased in area as compared with the previous exam. Remote lacunar infarcts in the basal ganglia bilaterally. Normal thalami. There is no extra-axial fluid accumulation. Normal flow voids within the major intracranial circulation suggesting patency by spin echo criteria. Encephalomalacia right occipital cortex. Normal sella turcica, pituitary gland, infundibular stalk, optic chiasm and hypothalamus. Normal tectal plate and pineal gland. Normal midbrain, rafal and medulla. Remote lacunar infarct right cerebellum. Normal basal cisterns. Normal bilateral temporal bones. Normal bilateral internal auditory canals. No demonstrated orbital abnormality, within the constraints of a routine brain study. Normal visualized paranasal sinuses. Normal calvarium and skull base. Normal visualized soft tissue structures. Normal visualized upper cervical spine. MRI/Brain without Contrast IMPRESSION: Decreased/improving subacute infarct left perirolandic region. Multiple remote infarcts as noted above. Electronically Signed: Juan Jose Cox MD at 21:31 EDT ,
[2022-03-31] MEDS: Atorvastatin Calcium 40 MG Tablet PO (20:41)
[2022-04-01] VITALS (13 sets, daily range): BP systolic 111–152; BP diastolic 53–62; PULSE 75–92; RESP 16–18; TEMP 36.2–36.9; O2SAT 97–99; BMI 18.0
[2022-04-01 05:39] LABS: Absolute Lymphocyte Count 1.25 X10^3/uL (0.83-4.51); Absolute Neutrophil Count 5.8 X10^3/uL (2.0-7.7); Basophil# 0.05 X10^3/uL; Basophil% 0.6 % (0-1); Eosinophil# 0.33 X10^3/uL; Eosinophils% 4.1 % (0-5); Hematocrit 34.7 % (37-47); Hemoglobin 11.9 g/dL (12.0-15.0); Lymphocyte # 1.25 X10^3/ul (0.83-4.51); Lymphocyte % 15.5 % (19-41); Mean Corp Hgb Conc 34.3 g/dL (32-36); Mean Corpuscular Hgb 30.7 pg (27.0-32.0); Mean Corpuscular Volume 89.4 fL (81-99); Mean Platelet Vol. 8.3 fl (6.2-12.0); Monocyte% 7.4 % (0-10); NRBC Flagged by Analyzer 0 % (0-5); Neutrophil # 5.81 X10^3/uL (2.7-7.7); Neutrophil % 71.9 % (47-70); Platelet Count 287 K/mm3 (150-450); RBC Distribution Width CV 12.1 % (11.6-14.6); RBC Distribution Width SD 39.7 fl (35.1-43.9); Red Blood Count 3.88 M/mm3 (4.2-5.4); White Blood Count 8.1 K/mm3 (4.4-11.0)
[2022-04-01 06:20] LABS: AST(SGOT) 21 U/L (15-37); Alanine Aminotransfer ALT/SGPT 31 U/L (13-56); Albumin, Serum 3.2 g/dL (3.2-5.0); Alkaline Phosphatase 150 U/L (45-117); Anion Gap 8 (5-15); BUN 19 mg/dL (7-18); BUN/Creat Ratio 19.9 RATIO (10-20); Calcium,Total 9.1 mg/dL (8.5-10.1); Chloride 101 mmol/L (98-107); Cholesterol 70 mg/dL (200); Creatinine, Serum 0.95 mg/dL (0.55-1.02); EST Glomerular Filtration Rate 62 mL/min (>60); Est Glom Filt Rate - Afr Amer 75 mL/min (>60); Estimated Creatinine Clearance 40.08 ml/min; Globulin 3.3 g/dL (2.2-4.2); Glucose 92 mg/dL (74-106); High Density Lipoprotein 42 mg/dL; Potassium 4.2 mmol/L (3.5-5.1); Protein, Total 6.5 g/dL (6.4-8.2); Sodium Level 132 mmol/L (136-145); Triglycerides 77 mg/dL; Very Low Density Lipoprotein 15 mg/dL (5-40)
[2022-04-01] MEDS: hydrALAZINE 10 MG Tablet PO ×2 (06:32→16:42)
--- NOTE | 2022-04-01 06:52 | NURSING ---
Documentation of orientee Chanell reviewed. This RN agrees with documention as entered
--- NOTE | 2022-04-01 08:32 | CON.PCM.SX_ITS ---
Assessment & Plan Assessment/Plan (1) Carotid stenosis, bilateral: PLAN: -CTA images reviewed; high grade bilateral carotid stenosis (left 85%, right 60% by NASCET or 71% by ECST) with irregular plaque morphology -MRI in February with left hemispheric stroke; smaller in size on new MRI -loaded with plavix in ED, cont daily as well as ASA and statin -stress test/medical optimization -will plan for left CEA if medically fit during this admission HPI Consult Data Date of Consult: 04/01/22 HPI Narrative HPI Narrative: SIERRA SANTANA, is a 67 F who presents with recurrent episode of speech difficulty that she describes as garbled, nonsense sounds. Initial event was mid February for which she was admitted to the hospital and found to have left hemispheric stroke. She also had some intermittent right arm numbness over the past several weeks. She did not recognize her original speech issues a month ago, but this episode she could tell that words/sounds produced were not making sense. She feels that today she is back to normal speech and currently has no motor/sensory issues. After her event in Feb she was started on ASA, plavix and a statin; the plavix was only for a few weeks and she recently completed the course of it from what she understands. [facility] Medical History CVA (cerebral vascular accident) HTN (hypertension) Home Medications alendronate 70 mg tablet 70 mg PO MO BONES 02/20/22 [History Last Taken 03/30/22] amlodipine 10 mg tablet 10 mg PO DAILY blood pressure 02/20/22 [History Last Taken 03/31/22] cholecalciferol (vitamin D3) 50 mcg (2,000 unit) capsule 2,000 unit PO DAILY supplement 02/20/22 [History Last Taken 03/31/22] lisinopril 40 mg tablet 40 mg PO DAILY blood pressure 02/20/22 [History Last Taken 03/31/22] aspirin 81 mg chewable tablet 81 mg PO BREAKFAST heart health 03/31/22 [History Last Taken 03/31/22] atorvastatin 40 mg tablet 40 mg PO QHS cholesterol 03/31/22 [History Last Taken 03/30/22] hydralazine 10 mg tablet 10 mg PO BID anxiety 03/31/22 [History Last Taken 03/31/22] Allergy/AdvReac Type Severity Reaction Status Date / Time No Known Allergies Allergy Verified 03/31/22 14:19 Family History Father Cancer Mother Cancer Other Diabetes Surgical History H/O tubal ligation Social History household members: other details: In the process of moving in with daughter Smoking Status: Current every day smoker tobacco type: cigarettes alcohol intake: never substance use type: does not use ROS Constitutional Constitutional: Denies chills, fever(s), frequent falls, lethargy or weakness Eyes Eyes: Denies blind spots, change in vision or loss of vision ENT HEENT: Denies bleeding gums, hoarseness or sore throat Cardiovascular Cardiovascular: Denies abdominal pain, bluish discoloration of hand/feet, chest pain with activity, claudication, cold extremities, cyanosis, dyspnea on exertion, erythema on extremities, irregular heart rhythm, leg edema, leg ulcers, numbness in extremities or weakness in extremities Respiratory/Chest Respiratory/Chest: Denies cough, excessive phlegm production, shortness of breath at rest, shortness of breath with exertion or wheezing Gastrointestinal Gastrointestinal: Denies anorexia, change in stool character, constipation, diarrhea, melena or rectal bleeding Musculoskeletal Musculoskeletal: Denies abnormal gait Integumentary Integumentary: Denies erythema, non-healing lesions or wounds Neurologic Neurologic: Reports abnormal speech; Denies focal weakness, headache(s), loss of vision, numbness, paresthesias or sensory deficit Hematologic/Lymphatic Hematologic/Lymphatic: Denies easy bleeding, easy bruising or lymphadenopathy Physical Exam Const alert, oriented x3, no apparent distress and healthy appearing General Appearance: cooperative; Negative for combative or lethargic Orientation / Consciousness: awake Exam Limitations: no limitations HEENT Head and Scalp: normocephalic and atraumatic Eyes EOMs intact bilaterally General Eye: normal appearance of both eyes Neck full ROM, no lymphadenopathy and thyroid normal General: trachea midline; Negative for lymphadenopathy Thyroid: thyroid normal Lymph Lymphatic: Negative for no lymphadenopathy noted Resp normal respiratory effort and no use of accessory muscles Effort and Inspection: Negative for labored, stridor or audible wheezes Cardio regular rate and regular rhythm Peripheral Pulses: brachial pulses present and radial pulses present; Negative for popliteal pulses present, posterior tibial pulses present or dorsalis pedis pulses present GI non-tender and non-distended; Negative for hepatosplenomegaly Back/Spine Cervical Spine: cervical ROM normal Extremity full ROM, normal capillary refill and no clubbing, cyanosis or edema Skin no rashes or lesions noted and no wounds Neuro oriented x3, CN's II-XII intact bilaterally, no focal motor deficits and no sensory deficits noted Speech: speech normal Psych thought process normal, cooperative, affect normal, speech normal and activity/motor behavior normal Lab / Micro Data Result Diagrams: 04/01/22 04:57 04/01/22 04:57 Labs: Laboratory Results - last 24 hr 03/31/22 14:21: POC Glucose 117 H 03/31/22 14:22: WBC 18.1 H, RBC 4.24, Hgb 13.2, Hct 37.9, MCV 89.4, MCH 31.1, MCHC 34.8, RDW Std Deviation 39.2, RDW Coeff of Ed 12.1, Plt Count 356, MPV 8.2, Immature Gran % (Auto) 0.400, Neut % (Auto) 76.6 H, Lymph % (Auto) 16.9 L, [place] % (Auto) 4.9, Eos % (Auto) 0.8, Baso % (Auto) 0.4, Absolute Neuts (auto) 13.8 H, Absolute Lymphs (auto) 3.06, Nucleated RBC % 0 03/31/22 14:22: PT 12.7, INR 1.0, APTT 31.1 03/31/22 14:22: Sodium 130 L, Potassium 4.7, Chloride 100, Carbon Dioxide 21.0, Anion Gap 9, BUN 14, Creatinine 0.89, Estim Creat Clear Calc 43.46, Est GFR (MDRD) Af Amer 81, Est GFR (MDRD) Non-Af 67, BUN/Creatinine Ratio 15.7, Glucose 111 H, Calcium 9.8, Troponin I High Sens 30 03/31/22 15:24: Urine Color Yellow, Urine Clarity Clear, Urine pH 7.0, Ur Specific [place] 1.010, Urine Protein Negative, Urine Glucose (UA) Normal, Urine Ketones Negative, Urine Occult Blood Negative, Urine Nitrite Negative, Urine Bilirubin Negative, Urine Urobilinogen Normal, Ur Leukocyte Esterase 500 H, Urine RBC 0 SEEN, Urine WBC 0-5 SEEN, Ur Squamous Epith Cells 0-5 SEEN, Urine Bacteria 0 SEEN, Urine Mucus 0 SEEN 04/01/22 04:57: WBC 8.1, RBC 3.88 L, Hgb 11.9 L, Hct 34.7 L, MCV 89.4, MCH 30.7, MCHC 34.3, RDW Std Deviation 39.7, RDW Coeff of Ed 12.1, Plt Count 287, MPV 8.3, Immature Gran % (Auto) 0.500, Neut % (Auto) 71.9 H, Lymph % (Auto) 15.5 L, [place] % (Auto) 7.4, Eos % (Auto) 4.1, Baso % (Auto) 0.6, Absolute Neuts (auto) 5.8, Absolute Lymphs (auto) 1.25, Nucleated RBC % 0 04/01/22 04:57: Sodium 132 L, Potassium 4.2, Chloride 101, Carbon Dioxide 23.0, Anion Gap 8, BUN 19 H, Creatinine 0.95, Estim Creat Clear Calc 40.08, Est GFR (MDRD) Af Amer 75, Est GFR (MDRD) Non-Af 62, BUN/Creatinine Ratio 19.9, Glucose 92, Calcium 9.1, Total Bilirubin 0.50, AST 21, ALT 31, Alkaline Phosphatase 150 H, Total Protein 6.5, Albumin 3.2, Globulin 3.3, Albumin/Globulin Ratio 1.0, Triglycerides 77, Cholesterol 70, LDL Cholesterol 13, VLDL Cholesterol 15, HDL Cholesterol [address] 03/31/22 14:29 IMPRESSION: Chronic involutional changes of the brain. Electronically Signed: Freedom Jimenez MD at 14:50 EDT , ADDENDUM: 03/31/22 1501 IMPRESSION: Chronic involutional changes of the brain. Electronically Signed: Freedom Jimenez MD at 14:50 EDT , N.B. : The above Results were Read Back by Dmitri Jones MD to Dr Delano Penaloza MD, and understanding confirmed on 03/31/2022 14:54:09 (ET). ADDENDUM: 03/31/22 1520 IMPRESSION: Chronic involutional changes of the brain. Electronically Signed: Freedom Jimenez MD at 14:50 EDT Reading Location ID and State: [address] [place] [address] , Service support , N.B. : The above Results were Read Back by Dmitri Jones MD to Dr Delano Penaloza MD, and understanding confirmed on 03/31/2022 14:54:09 (ET). Head/Neck CTA 03/31/22 14:30 IMPRESSION: High-grade stenosis of the carotid arteries bilaterally worse on the left side. N.B. : The above Results were Read Back by Freedom Jimenez MD to Dr KEYON MD, and understanding confirmed on 03/31/2022 15:00:03 (ET). Electronically Signed: Freedom Jimenez MD at 15:02 EDT Reading Location ID and State: [facility] / [place] , Service support , ADDENDUM: 03/31/22 1509 IMPRESSION: High-grade stenosis of the carotid arteries bilaterally worse on the left side. N.B. : The above Results were Read Back by Freedom Jimenez MD to Dr KEYON MD, and understanding confirmed on 03/31/2022 15:00:03 (ET). Electronically Signed: Freedom Jimenez MD at 15:02 EDT , Chest X-Ray 03/31/22 16:05 IMPRESSION: No acute cardiopulmonary abnormality. No interval change. Electronically Signed: Dmitri Jones MD at 16:49 EDT , Brain MRI 03/31/22 16:24 IMPRESSION: Decreased/improving subacute infarct left perirolandic region. Multiple remote infarcts as noted above. Electronically Signed: Juan Jose Cox MD at 21:31 EDT , Charges/Coding Visit Charges Inpatient E&M: 47341 Init Hosp L3
[2022-04-01] MEDS: Cholecalciferol (VIT D3) 25 MCG TABLET (1,000 UNITS) 50 MCG PO (09:15)
[2022-04-01] MEDS: Aspirin 81 MG TAB.CHEW PO (09:15)
[2022-04-01] MEDS: Clopidogrel Bisulfate 75 MG Tablet PO (10:25)
--- NOTE | 2022-04-01 11:18 | PCM.PN.HOSP ---
Subjective Subjective She is on mental status are back to baseline per family and patient. She was found to have fairly extensive bilateral carotid disease and vascular surgery was consulted. They would like to take her to the OR early next week ideally day 7 through 14. We will go ahead and get a stress test in the morning to rule out any ongoing cardiac issues that could complicate matters. Objective Data Objective Data Vital Signs: Vital Signs Temp Pulse Resp BP Pulse Ox O2 Del Method 97.7 F L 80 16 120/53 L 97 Room Air 04/01/22 10:30 04/01/22 10:30 04/01/22 10:30 04/01/22 10:30 04/01/22 10:30 04/01/22 10:30 Oxygen Delivery Method Room Air Weight: 44.8 kg Body Mass Index (BMI) 18.0 Intake & Output: Intake and Output for Last 24 Hours 03/30/22 03/31/22 04/01/22 23:59 23:59 23:59 Intake Total 120 / 120 200 / 200 Balance 120 / 120 200 / 200 Lab / Micro Data Result Diagrams: 04/01/22 04:57 04/01/22 04:57 Labs: Laboratory Results - last 24 hr 03/31/22 14:21: POC Glucose 117 H 03/31/22 14:22: WBC 18.1 H, RBC 4.24, Hgb 13.2, Hct 37.9, MCV 89.4, MCH 31.1, MCHC 34.8, RDW Std Deviation 39.2, RDW Coeff of Ed 12.1, Plt Count 356, MPV 8.2, Immature Gran % (Auto) 0.400, Neut % (Auto) 76.6 H, Lymph % (Auto) 16.9 L, [place] % (Auto) 4.9, Eos % (Auto) 0.8, Baso % (Auto) 0.4, Absolute Neuts (auto) 13.8 H, Absolute Lymphs (auto) 3.06, Nucleated RBC % 0 03/31/22 14:22: PT 12.7, INR 1.0, APTT 31.1 03/31/22 14:22: Sodium 130 L, Potassium 4.7, Chloride 100, Carbon Dioxide 21.0, Anion Gap 9, BUN 14, Creatinine 0.89, Estim Creat Clear Calc 43.46, Est GFR (MDRD) Af Amer 81, Est GFR (MDRD) Non-Af 67, BUN/Creatinine Ratio 15.7, Glucose 111 H, Calcium 9.8, Troponin I High Sens 30 03/31/22 15:24: Urine Color Yellow, Urine Clarity Clear, Urine pH 7.0, Ur Specific [place] 1.010, Urine Protein Negative, Urine Glucose (UA) Normal, Urine Ketones Negative, Urine Occult Blood Negative, Urine Nitrite Negative, Urine Bilirubin Negative, Urine Urobilinogen Normal, Ur Leukocyte Esterase 500 H, Urine RBC 0 SEEN, Urine WBC 0-5 SEEN, Ur Squamous Epith Cells 0-5 SEEN, Urine Bacteria 0 SEEN, Urine Mucus 0 SEEN 04/01/22 04:57: WBC 8.1, RBC 3.88 L, Hgb 11.9 L, Hct 34.7 L, MCV 89.4, MCH 30.7, MCHC 34.3, RDW Std Deviation 39.7, RDW Coeff of Ed 12.1, Plt Count 287, MPV 8.3, Immature Gran % (Auto) 0.500, Neut % (Auto) 71.9 H, Lymph % (Auto) 15.5 L, [place] % (Auto) 7.4, Eos % (Auto) 4.1, Baso % (Auto) 0.6, Absolute Neuts (auto) 5.8, Absolute Lymphs (auto) 1.25, Nucleated RBC % 0 04/01/22 04:57: Sodium 132 L, Potassium 4.2, Chloride 101, Carbon Dioxide 23.0, Anion Gap 8, BUN 19 H, Creatinine 0.95, Estim Creat Clear Calc 40.08, Est GFR (MDRD) Af Amer 75, Est GFR (MDRD) Non-Af 62, BUN/Creatinine Ratio 19.9, Glucose 92, Calcium 9.1, Total Bilirubin 0.50, AST 21, ALT 31, Alkaline Phosphatase 150 H, Total Protein 6.5, Albumin 3.2, Globulin 3.3, Albumin/Globulin Ratio 1.0, Triglycerides 77, Cholesterol 70, LDL Cholesterol 13, VLDL Cholesterol 15, HDL Cholesterol 42 Radiography Diagnostic Testing: Radiology Impression Brain CT 03/31/22 14:29 IMPRESSION: Chronic involutional changes of the brain. Electronically Signed: Freedom Jimenez MD at 14:50 EDT , ADDENDUM: 03/31/22 1501 IMPRESSION: Chronic involutional changes of the brain. Electronically Signed: Freedom Jimenez MD at 14:50 EDT , N.B. : The above Results were Read Back by Dmitri Jones MD to Dr Delano Penaloza MD, and understanding confirmed on 03/31/2022 14:54:09 (ET). ADDENDUM: 03/31/22 1520 IMPRESSION: Chronic involutional changes of the brain. Electronically Signed: Freedom Jimenez MD at 14:50 EDT , N.B. : The above Results were Read Back by Dmitri Jones MD to Dr Delano Penaloza MD, and understanding confirmed on 03/31/2022 14:54:09 (ET). Head/Neck CTA 03/31/22 14:30 IMPRESSION: High-grade stenosis of the carotid arteries bilaterally worse on the left side. N.B. : The above Results were Read Back by Freedom Jimenez MD to Dr KEYON MD, and understanding confirmed on 03/31/2022 15:00:03 (ET). Electronically Signed: Freedom Jimenez MD at 15:02 EDT , ADDENDUM: 03/31/22 1509 IMPRESSION: High-grade stenosis of the carotid arteries bilaterally worse on the left side. N.B. : The above Results were Read Back by Freedom Jimenez MD to Dr KEYON MD, and understanding confirmed on 03/31/2022 15:00:03 (ET). Electronically Signed: Freedom Jimenez MD at 15:02 EDT , Chest X-Ray 03/31/22 16:05 IMPRESSION: No acute cardiopulmonary abnormality. No interval change. Electronically Signed: Dmitri Jones MD at 16:49 EDT , Brain MRI 03/31/22 16:24 IMPRESSION: Decreased/improving subacute infarct left perirolandic region. Multiple remote infarcts as noted above. Electronically Signed: Juan Jose Cox MD at 21:31 EDT , Physical Exam Const alert, oriented x3 and no apparent distress Constitutional Narrative: Thin, upper middle-aged white female sitting up in bed, appears much older than stated age, appears comfortable and nontoxic, family is at bedside HEENT head/scalp atraumatic and moist oral mucous membranes HEENT Narrative: Dentition is poor, Mallampati is 2, no thrush Head and Scalp: normocephalic Neck Neck Narrative: Bilateral carotid bruits Resp normal respiratory effort, no retractions and no use of accessory muscles Resp Narrative: Diffusely diminished with few scattered end expiratory wheezes Auscultation: wheezes; Negative for crackles, rales or rhonchi Cardio regular rate, regular rhythm, S1 normal heart sound, S2 normal heart sound, no murmurs, no gallops, no clicks and no JVD GI normal to inspection, nondistended, normoactive bowel sounds, soft to palpation and non-tender Extremity no clubbing, cyanosis or edema Extremity Narrative: Decreased lean muscle mass Neuro oriented x3, CN's II-XII intact bilaterally, moves all extremities and no focal motor deficits Speech: speech normal Assessment & Plan Assessment/Plan (1) Recurrent cerebrovascular accidents (CVAs): (2) Carotid stenosis, bilateral: PLAN: Plan TIA with recent stroke -Was admitted from February 21 through February 22 with new diagnosis of left MCA stroke -Presenting symptoms have now resolved -MRI shows no new stroke -Continue aspirin -Plavix load in the emergency department -Start Plavix 75 mg daily -TA showed high-grade stenosis bilaterally -Continue atorvastatin -Continue blood pressure control -PT/OT/speech therapy consult -EEG ordered and pending High-grade bilateral carotid stenosis -Vascular surgery consulted and has seen the patient -Plan is for CEA to be performed during this hospitalization since she has had 2 events now -We will obtain stress test for preop clearance per vascular surgery recommendations -Continue aspirin/Plavix/statin Hypertension -Continue home amlodipine -Continue home hydralazine -Continue home lisinopril -Continue to monitor -As needed antihypertensives available Hyperlipidemia -Continue home statin -No need to recheck as she had recent lipids done in February Mild cognitive impairment -Family indicates that they have noted some word ending memory that worsened after her stroke event -Suspect early vascular dementia -Discussed with family that this is not reversible however if we can stop infarct from happening at that hopefully the memory loss will stagnate Suspected COPD -Start DuoNebs -Good pulmonary toilet -Would recommend pulmonary follow-up after discharge -Tobacco cessation discussed with patient Ongoing tobacco abuse -Encourage cessation -Nicotine replacement therapy in place DVT prophylaxis -Start enoxaparin CODE STATUS -Full code Charges/Coding Visit Charges Inpatient E&M: 30926 Subs Hosp L2
--- NOTE | 2022-04-01 11:30 | CASEMGMT ---
NÉSTOR GREER Face to Face with patient for initial transition planning/care coordination assessment. RN CM introduced self and role at [facility]. Patient sitting in chair, alert and oriented, daughter at bedside. Patient willing to participate in assessment and is able to answer all questions appropriately. Care providers, pharmacy, and demographics verified. Patient wishes to discharge home, denies need for home health at this time, armando monitor progress with therapy. Patient states she has no further needs or concerns at this time. CM to follow for discharge planning needs that may arise. PCP: Leopoldo Specialists: [facility] Preferred Pharmacy: [facility] Insurance: [employer] Prescription Benefit: yes Living Will/HPOA: none LNOK: daughters Living Arrangements: Patient will be moving in with daughter Radha at discharge. Daughter's home is a single story home with no steps to enter. Patient states she is independent at home. Transportation: daughter DME/HHC: Patient has shower chair at home. No previous HHC or SNF. Will monitor progress with therpay for possible HHC vs outpatient therapy. Disposition Plan: Patient to discharge to daughters home with family support and follow-up plans in place. Will monitor patient for therapy at discharge. Cari MARKHAM, RN, CM
[2022-04-01] MEDS: Enoxaparin 30 MG/0.3 ML Syringe SC (13:13)
[2022-04-01] MEDS: Ipratropium/Albuterol Sulfate 3 ML AMPUL.NEB INHALATION ×2 (13:52→20:23)
[2022-04-01] MEDS: Ensure Plus High Protein 120 ML LIQUID PO ×2 (16:42→20:39)
[2022-04-01] MEDS: Atorvastatin Calcium 40 MG Tablet PO (20:39)
[2022-04-02] VITALS (14 sets, daily range): BP systolic 116–139; BP diastolic 51–65; PULSE 80–104; RESP 14–20; TEMP 36.3–36.7; O2SAT 97–100; BMI 18.0
[2022-04-02] MEDS: 0.9% Saline Lock 10 ML Syringe IV (03:46)
--- NOTE | 2022-04-02 05:55 | EKG12_ITS ---
Test Reason : AM EKG Blood Pressure : / mmHG Vent. Rate : 080 BPM Atrial Rate : 080 BPM P-R Int : 192 ms QRS Dur : 102 ms QT Int : 374 ms P-R-T Axes : 074 015 129 degrees QTc Int : 431 ms Normal sinus rhythm Incomplete right bundle branch block Voltage criteria for left ventricular hypertrophy ( R in aVL , Sokolow-Hazel , Timur product ) ST & Marked T wave abnormality, consider anterolateral ischemia Abnormal ECG When compared with ECG of 31-MAR-2022 14:43, T wave inversion more evident in Lateral leads Confirmed by MALAIKA PARHAM, SHIRA ([id number]), editorial cartoonist PABLO SHEA ([id number]) on 04/02/2022 1:01:20 PM Referred By: Confirmed By:GIULIA DAI MD
[2022-04-02] MEDS: hydrALAZINE 10 MG Tablet PO (06:24)
[2022-04-02] MEDS: Aspirin 81 MG TAB.CHEW PO (06:25)
[2022-04-02] MEDS: Lisinopril 40 MG Tablet PO (06:25)
[2022-04-02] MEDS: Clopidogrel Bisulfate 75 MG Tablet PO (06:25)
[2022-04-02] MEDS: Ipratropium/Albuterol Sulfate 3 ML AMPUL.NEB INHALATION ×3 (07:17→20:23)
--- NOTE | 2022-04-02 11:05 | CASEMGMT ---
Social Work PHQ-9 completed, pt scored a 0, no indication of depression at this time. JOSE A Gregorio
[2022-04-02] MEDS: amLODIPine 10 MG Tablet PO (11:25)
[2022-04-02] MEDS: Cholecalciferol (VIT D3) 25 MCG TABLET (1,000 UNITS) 50 MCG PO (11:26)
--- NOTE | 2022-04-02 13:27 | PCM.PN.HOSP ---
Subjective Subjective Patient reports she is feeling fine. Has just returned from stress testing. She states she was asymptomatic with no chest pain or significant shortness of breath during the test. Denies any current complaints. Objective Data Objective Data Vital Signs: Vital Signs Temp Pulse Resp BP Pulse Ox O2 Del Method 97.8 F 85 18 139/56 H 97 Room Air 04/02/22 10:27 04/02/22 13:06 04/02/22 13:06 04/02/22 10:27 04/02/22 10:27 04/02/22 10:27 Oxygen Delivery Method Room Air Weight: 44.8 kg Body Mass Index (BMI) 18.0 Intake & Output: Intake and Output for Last 24 Hours 03/31/22 04/01/22 04/02/22 23:59 23:59 23:59 Intake Total 120 / 120 1160 / 1460 300 / 300 Balance 120 / 120 1160 / 1460 300 / 300 Medical Nutrition Assessment Dietitian: Malnutrition Criteria Met Start: 04/01/22 14:56 Freq: Status: Active Protocol: Document 04/01/22 14:56 (Rec: 04/01/22 14:56 [id number]) Nutrition Malnutrition Evidence of Malnutrition Exists Yes Malnutrition (moderate): Chronic Evidenced By Suboptimal Energy Intake ( Moderate),Physical Changes ( Moderate) Clinical Problem Chronic Disease or Condition Related Malnutrition Etiology moderate, chronic malnutrition related to inadequate energy intake Signs/Symptoms as evidenced by estimated PO intake meeting <75% of estimated energy needs > 3 months; unintentional wt loss of 4.2#/4% ~1 month; moderate muscle wasting/fat loss evident per physical exam in orbital, temporal, clavicle, acromion, and clavicle areas; BMI 18.1 Status Active Problem Recommendation Dietitian Recommendations/Changes continue cardiac diet; will add 120mL ensure plus high protein given malnutrition signs/symptoms. Lab / Micro Data Result Diagrams: 04/01/22 04:57 04/01/22 04:57 Physical Exam Const alert, oriented x3 and no apparent distress Constitutional Narrative: Thin, upper middle-aged white female sitting up in bed, appears much older than stated age, appears comfortable and nontoxic, has just returned from stress test HEENT normocephalic, head/scalp atraumatic and moist oral mucous membranes HEENT Narrative: Dentition is poor, Mallampati is 2, no thrush Resp normal respiratory effort, no retractions, no use of accessory muscles and clear to auscultation bilaterally Resp Narrative: Wheeze has resolved but remains diffusely diminished Auscultation: Negative for crackles, rales, rhonchi or wheezes Cardio regular rate, regular rhythm, S1 normal heart sound, S2 normal heart sound, no murmurs, no rub, no gallops, no clicks and no JVD GI normal to inspection, nondistended, normoactive bowel sounds, soft to palpation and non-tender Extremity no clubbing, cyanosis or edema Extremity Narrative: Decreased lean muscle mass Neuro oriented x3, moves all extremities and no focal motor deficits Speech: speech normal Psych affect normal Assessment & Plan Assessment/Plan (1) Recurrent cerebrovascular accidents (CVAs): (2) Carotid stenosis, bilateral: (3) Moderate malnutrition: PLAN: Plan TIA with recent stroke -Was admitted from February 21 through February 22 with new diagnosis of left MCA stroke -Presenting symptoms have now resolved -MRI shows no new stroke -Continue aspirin -Plavix load in the emergency department -Continue Plavix 75 mg daily -TA showed high-grade stenosis bilaterally -Continue atorvastatin -Continue blood pressure control -PT/OT/speech therapy consult -EEG showed some abnormalities which could be consistent with possible seizure focus however during the test patient was seizure-free and responding appropriately it is noted that these also may be seen in the setting of an acute structural lesion/stroke -We will start Keppra 500 mg p.o. twice daily and repeat EEG 24 hours after medication has been initiated High-grade bilateral carotid stenosis -Vascular surgery consulted and has seen the patient -Plan is for CEA to be performed during this hospitalization since she has had 2 events now -Preop clearance stress test is pending per vascular surgery request -Continue aspirin/Plavix/statin Hypertension -Continue home amlodipine -Continue home hydralazine but increase from 10 mg p.o. twice daily to 20 mg p.o. twice daily in the attempt to achieve tighter blood pressure control -Continue home lisinopril -Continue to monitor--> goal blood pressure is less than 130/80 -As needed antihypertensives available Hyperlipidemia -Continue home statin -Total cholesterol was 70 with an LDL of 13 and an HDL of 42 Mild cognitive impairment -Family indicates that they have noted some word ending memory that worsened after her stroke event -Suspect early vascular dementia -Discussed with family that this is not reversible however if we can stop infarct from happening at that hopefully the memory loss will stagnate Suspected COPD -Continue DuoNebs -Good pulmonary toilet -Would recommend pulmonary follow-up after discharge -Tobacco cessation discussed with patient Ongoing tobacco abuse -Encourage cessation -Nicotine replacement therapy in place DVT prophylaxis -Continue enoxaparin for DVT prophylaxis CODE STATUS -Full code Charges/Coding Visit Charges Inpatient E&M: 13451 Subs Hosp L2
--- NOTE | 2022-04-02 13:41 | STRESSREP ---
Stress Test Report Date: 04/02/2022 Procedure: Pharmacologic stress nuclear imaging study Indications: Preop evaluation Consent: Per the patient Procedure: The patient underwent pharmacologic (Regadenoson) evaluation with a peak heart rate of 118 beats per minute (77%predicted maximal heart rate) and a peak blood pressure of 118/52 mmHg. The baseline ECG demonstrated sinus rhythm with nonspecific ST-T changes. EKG during lexiscan infusion revealed no significant ischemic changes. EKG post infusion revealed no significant ischemic changes [There were no cardiac dysrhythmias pretest, during pharmacologic infusion, or recovery]. [There was no complaint of chest discomfort during pharmacologic infusion or recovery]. The examination was discontinued secondary to completion of protocol. Impression: 1. Lexiscan stress test test is negative for Lexiscan infusion induced EKG changes of ischemia. 2. Lexiscan stress test test is negative for Lexiscan infusion induced chest pain. 3. Results of the nuclear portion of the test is as below Myocardial perfusion imaging study: Technique: The patient was injected with 11.1 millicuries of technetium 99m Cardiolite and subsequently rest SPECT Cardiolite nuclear imaging was obtained in the horizontal long, vertical long, and short axis views. The patient underwent pharmacologic [Regadenoson 0.4mg] evaluation. Please see above for details. The patient was injected with 33.6 millicuries of technetium 99m Cardiolite and subsequently stress SPECT Cardiolite nuclear imaging was obtained in the horizontal long, vertical long, and short axis views. A gated Cardiolite study at peak stress was obtained. Interpretation: Rest and stress SPECT Cardiolite nuclear imaging status post realignment, normalization, and attenuation correction demonstrate overall normal myocardial radioisotope uptake. Gated images reveal no significant regional wall motion abnormalities. The reported LVEF is greater than 70%. Impression: 1. There is no evidence of significant ischemia or infarction. 2. Estimated ejection fraction is greater than 70%. This note was generated with [employer] software. It may contain incorrect words, spelling, and punctuation that were not noted in checking the note before signing.
[2022-04-02] MEDS: Enoxaparin 40 MG/0.4 ML Syringe SC (14:42)
[2022-04-02] MEDS: Ensure Plus High Protein 120 ML LIQUID PO ×2 (14:42→18:39)
[2022-04-02] MEDS: levETIRAcetam 500 MG Tablet PO ×2 (15:35→20:30)
--- NOTE | 2022-04-02 15:59 | PN.SURG_ITS ---
Subjective Subjective No new issues, no recurrence of speech difficulty. Stress test completed, negative for inducible ischemia Objective Data Objective Data Vital Signs: Vital Signs Temp Pulse Resp BP Pulse Ox O2 Del Method 97.8 F 104 H 18 139/56 H 97 Room Air 04/02/22 10:27 04/02/22 15:00 04/02/22 13:06 04/02/22 10:27 04/02/22 10:27 04/02/22 10:27 Oxygen Delivery Method Room Air Weight: 98 lb 12.273 oz Body Mass Index (BMI) 18.0 Intake & Output: Intake and Output for Last 24 Hours 03/31/22 04/01/22 04/02/22 23:59 23:59 23:59 Intake Total 120 / 120 1160 / 1460 700 / 700 Balance 120 / 120 1160 / 1460 700 / 700 Medical Nutrition Assessment Dietitian: Malnutrition Criteria Met Start: 04/01/22 14:56 Freq: Status: Active Protocol: Document 04/01/22 14:56 (Rec: 04/01/22 14:56 [id number]) Nutrition Malnutrition Evidence of Malnutrition Exists Yes Malnutrition (moderate): Chronic Evidenced By Suboptimal Energy Intake ( Moderate),Physical Changes ( Moderate) Clinical Problem Chronic Disease or Condition Related Malnutrition Etiology moderate, chronic malnutrition related to inadequate energy intake Signs/Symptoms as evidenced by estimated PO intake meeting <75% of estimated energy needs > 3 months; unintentional wt loss of 4.2#/4% ~1 month; moderate muscle wasting/fat loss evident per physical exam in orbital, temporal, clavicle, acromion, and clavicle areas; BMI 18.1 Status Active Problem Recommendation Dietitian Recommendations/Changes continue cardiac diet; will add 120mL ensure plus high protein given malnutrition signs/symptoms. Lab / Micro Data Result Diagrams: 04/01/22 04:57 04/01/22 04:57 Physical Exam Const alert, oriented x3, no apparent distress and healthy appearing General Appearance: cooperative; Negative for combative or lethargic Orientation / Consciousness: awake Exam Limitations: no limitations HEENT Head and Scalp: normocephalic and atraumatic Eyes EOMs intact bilaterally General Eye: normal appearance of both eyes Neck full ROM and no lymphadenopathy General: trachea midline Resp normal respiratory effort and no use of accessory muscles Effort and Inspection: Negative for labored, stridor or audible wheezes Cardio regular rate and regular rhythm Back/Spine Cervical Spine: cervical ROM normal Skin no rashes or lesions noted and no wounds Neuro oriented x3, CN's II-XII intact bilaterally, no focal motor deficits and no se nsory deficits noted Psych thought process normal, cooperative, affect normal, speech normal and activity/motor behavior normal Assessment & Plan Assessment/Plan (1) Carotid stenosis, bilateral: PLAN: -stress negative -OR scheduled 729 -will add IVF in addition to PO intake to ensure no dehydration awaiting surgery
[2022-04-02] MEDS: hydrALAZINE 10 MG Tablet 20 MG PO (16:58)
[2022-04-02] MEDS: Lactated Ringers 1,000 ML 50 ML IV (16:58)
[2022-04-02] MEDS: Atorvastatin Calcium 40 MG Tablet PO (20:30)
[2022-04-02] MEDS: guaiFENesin 600 MG Tablet PO (20:34)
[2022-04-03] VITALS (12 sets, daily range): BP systolic 110–131; BP diastolic 51–64; PULSE 74–105; RESP 16–18; TEMP 36.6–37; O2SAT 97–99; BMI 18.0
[2022-04-03 05:54] LABS: Absolute Neutrophil Count 3.9 X10^3/uL (2.0-7.7); Basophil# 0.04 X10^3/uL; Basophil% 0.5 % (0-1); Eosinophil# 0.44 X10^3/uL; Hematocrit 28.9 % (37-47); Hemoglobin 9.8 g/dL (12.0-15.0); Mean Corp Hgb Conc 33.9 g/dL (32-36); Mean Corpuscular Hgb 30.5 pg (27.0-32.0); Mean Platelet Vol. 8.1 fl (6.2-12.0); Monocyte# 0.51 X10^3/uL; Monocyte% 6.9 % (0-10); NRBC Flagged by Analyzer 0 % (0-5); Neutrophil # 3.85 X10^3/uL (2.7-7.7); Neutrophil % 52.3 % (47-70); Platelet Count 244 K/mm3 (150-450); RBC Distribution Width CV 12.2 % (11.6-14.6); RBC Distribution Width SD 40.3 fl (35.1-43.9); Red Blood Count 3.21 M/mm3 (4.2-5.4); White Blood Count 7.4 K/mm3 (4.4-11.0)
[2022-04-03] MEDS: hydrALAZINE 10 MG Tablet 20 MG PO ×3 (06:07→21:07)
[2022-04-03 06:31] LABS: Anion Gap 8 (5-15); BUN 20 mg/dL (7-18); Calcium,Total 8.8 mg/dL (8.5-10.1); Chloride 104 mmol/L (98-107); Creatinine, Serum 0.83 mg/dL (0.55-1.02); EST Glomerular Filtration Rate 72 mL/min (>60); Est Glom Filt Rate - Afr Amer 88 mL/min (>60); Estimated Creatinine Clearance 45.88 ml/min; Glucose 86 mg/dL (74-106); Potassium 4.2 mmol/L (3.5-5.1); Sodium Level 134 mmol/L (136-145)
[2022-04-03] MEDS: Ipratropium/Albuterol Sulfate 3 ML AMPUL.NEB INHALATION (07:13)
[2022-04-03] MEDS: Aspirin 81 MG TAB.CHEW PO (08:37)
[2022-04-03] MEDS: levETIRAcetam 500 MG Tablet PO ×2 (10:02→21:07)
[2022-04-03] MEDS: Cholecalciferol (VIT D3) 25 MCG TABLET (1,000 UNITS) 50 MCG PO (10:02)
[2022-04-03] MEDS: amLODIPine 10 MG Tablet PO (10:02)
[2022-04-03] MEDS: Clopidogrel Bisulfate 75 MG Tablet PO (10:02)
[2022-04-03] MEDS: guaiFENesin 600 MG Tablet PO ×2 (10:02→21:07)
[2022-04-03] MEDS: Ensure Plus High Protein 120 ML LIQUID PO ×3 (10:03→21:07)
[2022-04-03] MEDS: Enoxaparin 40 MG/0.4 ML Syringe SC (10:03)
[2022-04-03] MEDS: Lisinopril 40 MG Tablet PO (10:03)
--- NOTE | 2022-04-03 10:26 | PN.HOSP_ITS ---
Subjective Subjective Follow-up on TIA/bilateral high-grade carotid stenosis: Patient was seen and examined. No new complaints. No acute events overnight. Objective Data Objective Data Vital Signs: Vital Signs Temp Pulse Resp BP Pulse Ox O2 Del Method 97.9 F 91 16 110/51 L 99 Room Air 04/03/22 09:56 04/03/22 09:56 04/03/22 09:56 04/03/22 09:56 04/03/22 09:56 04/03/22 09:56 Oxygen Delivery Method Room Air Weight: 44.8 kg Body Mass Index (BMI) 18.0 Intake & Output: Intake and Output for Last 24 Hours 04/01/22 04/02/22 04/03/22 23:59 23:59 23:59 Intake Total 1160 / 1460 1380.83 / 1380.83 400 / 400 Balance 1160 / 1460 1380.83 / 1380.83 400 / 400 Medical Nutrition Assessment Dietitian: Malnutrition Criteria Met Start: 04/01/22 14:56 Freq: Status: Active Protocol: Document 04/01/22 14:56 (Rec: 04/01/22 14:56 [id number]) Nutrition Malnutrition Evidence of Malnutrition Exists Yes Malnutrition (moderate): Chronic Evidenced By Suboptimal Energy Intake ( Moderate),Physical Changes ( Moderate) Clinical Problem Chronic Disease or Condition Related Malnutrition Etiology moderate, chronic malnutrition related to inadequate energy intake Signs/Symptoms as evidenced by estimated PO intake meeting <75% of estimated energy needs > 3 months; unintentional wt loss of 4.2#/4% ~1 month; moderate muscle wasting/fat loss evident per physical exam in orbital, temporal, clavicle, acromion, and clavicle areas; BMI 18.1 Status Active Problem Recommendation Dietitian Recommendations/Changes continue cardiac diet; will add 120mL ensure plus high protein given malnutrition signs/symptoms. Lab / Micro Data Result Diagrams: 04/03/22 05:45 04/03/22 05:45 Labs: Laboratory Results - last 24 hr 04/03/22 05:45: WBC 7.4, RBC 3.21 L, Hgb 9.8 L, Hct 28.9 L, MCV 90.0, MCH 30.5, MCHC 33.9, RDW Std Deviation 40.3, RDW Coeff of Ed 12.2, Plt Count 244, MPV 8.1, Immature Gran % (Auto) 0.300, Neut % (Auto) 52.3, Lymph % (Auto) 34.0, [place] % (Auto) 6.9, Eos % (Auto) 6.0 H, Baso % (Auto) 0.5, Absolute Neuts (auto) 3.9, Absolute Lymphs (auto) 2.50, Nucleated RBC % 0 04/03/22 05:45: Sodium 134 L, Potassium 4.2, Chloride 104, Carbon Dioxide 22.0, Anion Gap 8, BUN 20 H, Creatinine 0.83, Estim Creat Clear Calc 45.88, Est GFR (MDRD) Af Amer 88, Est GFR (MDRD) Non-Af 72, BUN/Creatinine Ratio 24.0 H, Glucose 86, Calcium 8.8 Physical Exam Narrative Physical exam: General: Alert, Oriented x3, Cooperative, No apparent distress HEENT: Atraumatic Oral: Moist Mucosa Neck: Supple Lungs: Clear to auscultation Cardiovascular: HS I+II, regular, no murmurs Abdomen: Bowel Sounds Present, Soft, Non Tender Extremities: No edema Skin: No rashes, No breakdown Neurological: Grossly intact Psych/Mental Status: Appropriate Assessment & Plan Assessment/Plan (1) Recurrent cerebrovascular accidents (CVAs): (2) Carotid stenosis, bilateral: PLAN: Plan 1. Bilateral high-grade carotid stenosis, CEA planned for next week Vascular surgery following Continue aspirin, Plavix, statin 2. TIA with recent stroke, no neurological deficit at the moment, MRI brain was negative for new stroke Continue aspirin, Plavix, statin PT/OT/speech consult 3. Probable seizure disorder, started on Keppra 500 mg twice daily 4. Hypertension, controlled, continue amlodipine, lisinopril 5. Hyperlipidemia, continue statin 6. DVT prophylaxis - Lovenox SC Charges/Coding Visit Charges Inpatient E&M: 41982 Subs Hosp L2
[2022-04-03] MEDS: Lactated Ringers 1,000 ML 50 ML IV (12:29)
--- NOTE | 2022-04-03 16:02 | CASEMGMT ---
Per admission questions patient wanted more information on advance directives. SW met with patient and introduced self and role at [facility]. Patient declined information on documents. Annabel ALEXANDER
[2022-04-03] MEDS: Atorvastatin Calcium 40 MG Tablet PO (21:07)
[2022-04-04] VITALS (10 sets, daily range): BP systolic 111–135; BP diastolic 56–66; PULSE 72–91; RESP 16–20; TEMP 36.3–37; O2SAT 97–98; BMI 18.0
[2022-04-04] MEDS: Lactated Ringers 1,000 ML 50 ML IV ×2 (05:42→23:15)
--- NOTE | 2022-04-04 07:56 | PN.HOSP_ITS ---
Subjective Subjective Follow-up on TIA/bilateral high-grade carotid stenosis: Patient was seen and examined.? No new complaints.? No acute events overnight. Waiting on CEA on Wednesday. Objective Data Objective Data Vital Signs: Vital Signs Temp Pulse Resp BP Pulse Ox O2 Del Method 98.4 F 72 16 122/58 H 98 Room Air 04/04/22 03:06 04/04/22 07:00 04/04/22 03:06 04/04/22 03:06 04/04/22 07:10 04/04/22 07:10 Oxygen Delivery Method Room Air Weight: 44.8 kg Body Mass Index (BMI) 18.0 Intake & Output: Intake and Output for Last 24 Hours 04/02/22 04/03/22 04/04/22 23:59 23:59 23:59 Intake Total 1380.83 / 1380.83 2086.67 / 208.67 860.83 / 860.83 Balance 1380.83 / 1380.83 2085. / 2085.67 860.83 / 860.83 Medical Nutrition Assessment Dietitian: Malnutrition Criteria Met Start: 04/01/22 14:56 Freq: Status: Active Protocol: Document 04/01/22 14:56 AG (Rec: 04/01/22 14:56 [id number]) Nutrition Malnutrition Evidence of Malnutrition Exists Yes Malnutrition (moderate): Chronic Evidenced By Suboptimal Energy Intake ( Moderate),Physical Changes ( Moderate) Clinical Problem Chronic Disease or Condition Related Malnutrition Etiology moderate, chronic malnutrition related to inadequate energy intake Signs/Symptoms as evidenced by estimated PO intake meeting <75% of estimated energy needs > 3 months; unintentional wt loss of 4.2#/4% ~1 month; moderate muscle wasting/fat loss evident per physical exam in orbital, temporal, clavicle, acromion, and clavicle areas; BMI 18.1 Status Active Problem Recommendation Dietitian Recommendations/Changes continue cardiac diet; will add 120mL ensure plus high protein given malnutrition signs/symptoms. Lab / Micro Data Result Diagrams: 04/03/22 05:45 04/03/22 05:45 Physical Exam Narrative Physical exam: General: Alert, Oriented x3, Cooperative, No apparent distress HEENT: Atraumatic Oral: Moist Mucosa Neck: Supple Lungs: Clear to auscultation Cardiovascular: HS I+II, regular, no murmurs Abdomen: Bowel Sounds Present, Soft, Non Tender Extremities: No edema Skin: No rashes, No breakdown Neurological: Grossly intact Psych/Mental Status: Appropriate Assessment & Plan Assessment/Plan (1) Recurrent cerebrovascular accidents (CVAs): (2) Carotid stenosis, bilateral: PLAN: Plan 1. Bilateral high-grade carotid stenosis, CEA planned for next week Vascular surgery following Continue aspirin, Plavix, statin 2. TIA with recent stroke, no neurological deficit at the moment, MRI brain was negative for new stroke Continue aspirin, Plavix, statin PT/OT/speech consult 3. Probable seizure disorder, continue on Keppra 500 mg twice daily 4. Moderate chronic malnutrition, home support worker consulted, continue on supplements 5. Hypertension, controlled, continue amlodipine, lisinopril 6. Hyperlipidemia, continue statin 7. DVT prophylaxis - Lovenox SC Charges/Coding Visit Charges Inpatient E&M: 90875 Subs Hosp L2
[2022-04-04] MEDS: Aspirin 81 MG TAB.CHEW PO (08:14)
[2022-04-04] MEDS: levETIRAcetam 500 MG Tablet PO ×2 (11:14→21:21)
[2022-04-04] MEDS: Ensure Plus High Protein 120 ML LIQUID PO ×4 (11:14→21:21)
[2022-04-04] MEDS: Enoxaparin 40 MG/0.4 ML Syringe SC (11:14)
[2022-04-04] MEDS: guaiFENesin 600 MG Tablet PO ×2 (11:15→21:21)
[2022-04-04] MEDS: amLODIPine 10 MG Tablet PO (11:15)
[2022-04-04] MEDS: Clopidogrel Bisulfate 75 MG Tablet PO (11:15)
[2022-04-04] MEDS: Cholecalciferol (VIT D3) 25 MCG TABLET (1,000 UNITS) 50 MCG PO (11:15)
[2022-04-04] MEDS: Lisinopril 40 MG Tablet PO (11:16)
[2022-04-04] MEDS: hydrALAZINE 10 MG Tablet 20 MG PO (17:29)
[2022-04-04] MEDS: Atorvastatin Calcium 40 MG Tablet PO (21:21)
[2022-04-05] VITALS (12 sets, daily range): BP systolic 117–154; BP diastolic 57–81; PULSE 78–89; RESP 16–20; TEMP 36.5–37.2; O2SAT 95–99; BMI 18.0
[2022-04-05] MEDS: hydrALAZINE 10 MG Tablet 20 MG PO ×2 (06:23→17:54)
[2022-04-05] MEDS: Aspirin 81 MG TAB.CHEW PO (07:49)
[2022-04-05] MEDS: guaiFENesin 600 MG Tablet PO ×2 (10:04→21:12)
[2022-04-05] MEDS: Ensure Plus High Protein 120 ML LIQUID PO ×4 (10:04→21:12)
[2022-04-05] MEDS: levETIRAcetam 500 MG Tablet PO ×2 (10:04→21:12)
[2022-04-05] MEDS: Enoxaparin 40 MG/0.4 ML Syringe SC (10:04)
[2022-04-05] MEDS: amLODIPine 10 MG Tablet PO (10:05)
[2022-04-05] MEDS: Cholecalciferol (VIT D3) 25 MCG TABLET (1,000 UNITS) 50 MCG PO (10:06)
[2022-04-05] MEDS: Lisinopril 40 MG Tablet PO (10:06)
[2022-04-05] MEDS: Clopidogrel Bisulfate 75 MG Tablet PO (10:06)
--- NOTE | 2022-04-05 12:03 | PCM.PN.HOSP ---
Subjective Subjective Follow-up on TIA/bilateral high-grade carotid stenosis: Patient was seen and examined.? No new complaints.? No acute events overnight. Objective Data Objective Data Vital Signs: Vital Signs Temp Pulse Resp BP Pulse Ox O2 Del Method 97.9 F 79 16 134/61 H 99 Room Air 04/05/22 09:07 04/05/22 09:07 04/05/22 09:07 04/05/22 09:07 04/05/22 09:07 04/05/22 09:07 Oxygen Delivery Method Room Air Weight: 44.8 kg Body Mass Index (BMI) 18.0 Intake & Output: Intake and Output for Last 24 Hours 04/03/22 04/04/22 04/05/22 23:59 23:59 23:59 Intake Total 2086.67 / 2086.67 2948.33 / 2948.33 200 / 200 Balance 6.67 / 2085.67 2948.33 / 2948.33 200 / 200 Medical Nutrition Assessment Dietitian: Malnutrition Criteria Met Start: 04/01/22 14:56 Freq: Status: Active Protocol: Document 04/04/22 12:47 RMA (Rec: 04/04/22 12:48 RMA [id number]) Nutrition Malnutrition Evidence of Malnutrition Exists Yes Malnutrition (moderate): Chronic Evidenced By Suboptimal Energy Intake ( Moderate),Physical Changes ( Moderate) Clinical Problem Chronic Disease or Condition Related Malnutrition Etiology moderate, chronic malnutrition related to inadequate energy intake Signs/Symptoms as evidenced by estimated PO intake meeting <75% of estimated energy needs > 3 months; unintentional wt loss of 4.2#/4% ~1 month; moderate muscle wasting/fat loss evident per physical exam in orbital, temporal, clavicle, acromion, and clavicle areas; BMI 18.1 Status Active Problem Recommendation Dietitian Recommendations/Changes Will continue cardiac diet as ordered with 120mL ensure plus high protein 4 times per day w/ medpass. Additional ONS as needed if PO declines at meals. Lab / Micro Data Result Diagrams: 04/03/22 05:45 04/03/22 05:45 Physical Exam Narrative Physical exam: General: Alert, Oriented x3, Cooperative, No apparent distress HEENT: Atraumatic Oral: Moist Mucosa Neck: Supple Lungs: Clear to auscultation Cardiovascular: HS I+II, regular, no murmurs Abdomen: Bowel Sounds Present, Soft, Non Tender Extremities: No edema Skin: No rashes, No breakdown Neurological: Grossly intact Psych/Mental Status: Appropriate Assessment & Plan Assessment/Plan (1) Recurrent cerebrovascular accidents (CVAs): (2) Carotid stenosis, bilateral: PLAN: Plan 1. Bilateral high-grade carotid stenosis, CEA planned for Wednesday Vascular surgery following Continue aspirin, Plavix, statin 2. TIA with recent stroke, no neurological deficit at the moment, MRI brain was negative for new stroke Continue aspirin, Plavix, statin PT/OT/speech consult 3.Probable seizure disorder, continue on Keppra 500 mg twice daily 4. 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 Hypertension, controlled, continue amlodipine, lisinopril 6. Hyperlipidemia, continue statin 7. DVT prophylaxis - Lovenox SC Charges/Coding Visit Charges Inpatient E&M: 18609 Subs Hosp L2
[2022-04-05] MEDS: Alendronate Sodium 70 MG Tablet PO (14:40)
[2022-04-05] MEDS: 0.9% Saline Lock 10 ML Syringe IV (14:45)
[2022-04-05] MEDS: Atorvastatin Calcium 40 MG Tablet PO (21:12)
[2022-04-06] VITALS (13 sets, daily range): BP systolic 112–144; BP diastolic 53–75; PULSE 73–91; RESP 16–20; TEMP 36.4–36.9; O2SAT 93–98; BMI 18.0
[2022-04-06 06:37] LABS: Absolute Lymphocyte Count 1.91 X10^3/uL (0.83-4.51); Absolute Neutrophil Count 4.2 X10^3/uL (2.0-7.7); Basophil# 0.03 X10^3/uL; Basophil% 0.4 % (0-1); Eosinophil# 0.33 X10^3/uL; Eosinophils% 4.6 % (0-5); Hematocrit 31.5 % (37-47); Hemoglobin 10.5 g/dL (12.0-15.0); Lymphocyte # 1.91 X10^3/ul (0.83-4.51); Lymphocyte % 26.8 % (19-41); Mean Corp Hgb Conc 33.3 g/dL (32-36); Mean Corpuscular Hgb 30.8 pg (27.0-32.0); Mean Corpuscular Volume 92.4 fL (81-99); Mean Platelet Vol. 8.6 fl (6.2-12.0); Monocyte# 0.64 X10^3/uL; NRBC Flagged by Analyzer 0 % (0-5); Neutrophil % 58.9 % (47-70); Platelet Count 274 K/mm3 (150-450); RBC Distribution Width CV 12.3 % (11.6-14.6); RBC Distribution Width SD 41.6 fl (35.1-43.9); Red Blood Count 3.41 M/mm3 (4.2-5.4); White Blood Count 7.1 K/mm3 (4.4-11.0)
[2022-04-06] MEDS: hydrALAZINE 10 MG Tablet 20 MG PO ×2 (06:39→16:23)
[2022-04-06 07:22] LABS: AST(SGOT) 45 U/L (15-37); Alanine Aminotransfer ALT/SGPT 73 U/L (13-56); Albumin, Serum 3.1 g/dL (3.2-5.0); Alkaline Phosphatase 147 U/L (45-117); Anion Gap 8 (5-15); BUN 18 mg/dL (7-18); BUN/Creat Ratio 28.2 RATIO (10-20); Calcium,Total 9.3 mg/dL (8.5-10.1); Chloride 104 mmol/L (98-107); Creatinine, Serum 0.64 mg/dL (0.55-1.02); EST Glomerular Filtration Rate 98 mL/min (>60); Est Glom Filt Rate - Afr Amer 119 mL/min (>60); Estimated Creatinine Clearance 38.08 ml/min; Globulin 3.1 g/dL (2.2-4.2); Glucose 88 mg/dL (74-106); Potassium 3.9 mmol/L (3.5-5.1); Protein, Total 6.2 g/dL (6.4-8.2); Sodium Level 135 mmol/L (136-145)
[2022-04-06] MEDS: Lisinopril 40 MG Tablet PO (09:02)
[2022-04-06] MEDS: Clopidogrel Bisulfate 75 MG Tablet PO (09:02)
[2022-04-06] MEDS: Aspirin 81 MG TAB.CHEW PO (09:02)
[2022-04-06] MEDS: levETIRAcetam 500 MG Tablet PO ×2 (09:02→22:09)
[2022-04-06] MEDS: amLODIPine 10 MG Tablet PO (09:02)
[2022-04-06] MEDS: Enoxaparin 40 MG/0.4 ML Syringe SC (09:02)
[2022-04-06] MEDS: guaiFENesin 600 MG Tablet PO ×2 (09:02→22:09)
[2022-04-06] MEDS: Cholecalciferol (VIT D3) 25 MCG TABLET (1,000 UNITS) 50 MCG PO (09:02)
[2022-04-06] MEDS: Ensure Plus High Protein 120 ML LIQUID PO ×4 (09:10→22:08)
--- NOTE | 2022-04-06 11:52 | PN.HOSP_ITS ---
Subjective Subjective No issues overnight or through the weekend. Neurological exams remained stable. Plan is for surgery Wednesday morning at 730. Patient indicates she is nervous but wanting to get over with so she can get home as soon as possible. No specific issues or complaints at this time. Objective Data Objective Data Vital Signs: Vital Signs Temp Pulse Resp BP Pulse Ox O2 Del Method 98.2 F 84 16 132/75 H 96 Room Air 04/06/22 08:57 04/06/22 08:57 04/06/22 08:57 04/06/22 08:57 04/06/22 08:57 04/06/22 09:12 Oxygen Delivery Method Room Air Weight: 44.8 kg Body Mass Index (BMI) 18.0 Intake & Output: Intake and Output for Last 24 Hours 04/04/22 04/05/22 04/06/22 23:59 23:59 23:59 Intake Total 2948.33 / 2948.33 1171.67 / 1171.67 200 / 200 Balance 2948.33 / 2948.33 1171.67 / 1171.67 200 / 200 Medical Nutrition Assessment Dietitian: Malnutrition Criteria Met Start: 04/01/22 14:56 Freq: Status: Active Protocol: Document 04/04/22 12:47 RMA (Rec: 04/04/22 12:48 RMA [id number]) Nutrition Malnutrition Evidence of Malnutrition Exists Yes Malnutrition (moderate): Chronic Evidenced By Suboptimal Energy Intake ( Moderate),Physical Changes ( Moderate) Clinical Problem Chronic Disease or Condition Related Malnutrition Etiology moderate, chronic malnutrition related to inadequate energy intake Signs/Symptoms as evidenced by estimated PO intake meeting <75% of estimated energy needs > 3 months; unintentional wt loss of 4.2#/4% ~1 month; moderate muscle wasting/fat loss evident per physical exam in orbital, temporal, clavicle, acromion, and clavicle areas; BMI 18.1 Status Active Problem Recommendation Dietitian Recommendations/Changes Will continue cardiac diet as ordered with 120mL ensure plus high protein 4 times per day w/ medpass. Additional ONS as needed if PO declines at meals. Lab / Micro Data Result Diagrams: 04/06/22 05:30 04/06/22 05:30 Labs: Laboratory Results - last 24 hr 04/06/22 05:30: WBC 7.1, RBC 3.41 L, Hgb 10.5 L, Hct 31.5 L, MCV 92.4, MCH 30.8, MCHC 33.3, RDW Std Deviation 41.6, RDW Coeff of Ed 12.3, Plt Count 274, MPV 8.6, Immature Gran % (Auto) 0.300, Neut % (Auto) 58.9, Lymph % (Auto) 26.8, [place] % (Auto) 9.0, Eos % (Auto) 4.6, Baso % (Auto) 0.4, Absolute Neuts (auto) 4.2, Absolute Lymphs (auto) 1.91, Nucleated RBC % 0 04/06/22 05:30: Sodium 135 L, Potassium 3.9, Chloride 104, Carbon Dioxide 23.0, Anion Gap 8, BUN 18, Creatinine 0.64, Estim Creat Clear Calc 38.08, Est GFR (MDRD) Af Amer 119, Est GFR (MDRD) Non-Af 98, BUN/Creatinine Ratio 28.2 H, Glucose 88, Calcium 9.3, Total Bilirubin 0.40, AST 45 H, ALT 73 H, Alkaline Phosphatase 147 H, Total Protein 6.2 L, Albumin 3.1 L, Globulin 3.1, Albumin/Globulin Ratio 1.0 Physical Exam Const alert, oriented x3 and no apparent distress Constitutional Narrative: Thin, upper middle-aged white female sitting up in bed, eating breakfast, appears much older than stated age, appears comfortable and nontoxic Nutritional Appearance: cachectic HEENT normocephalic, head/scalp atraumatic and moist oral mucous membranes Resp normal respiratory effort, no retractions, no use of accessory muscles and clear to auscultation bilaterally Resp Narrative: Diminished but clear Auscultation: Negative for crackles, rales, rhonchi or wheezes Cardio regular rate, regular rhythm, S1 normal heart sound, S2 normal heart sound, no murmurs, no rub, no gallops, no clicks and no JVD Peripheral Pulses: pulses 2+ throughout GI normal to inspection, nondistended, normoactive bowel sounds, soft to palpation, non-tender and non-distended Extremity normal to inspection and no clubbing, cyanosis or edema Extremity Narrative: Decreased lean muscle mass Neuro oriented x3, moves all extremities and no focal motor deficits Speech: speech normal Assessment & Plan Assessment/Plan (1) Recurrent cerebrovascular accidents (CVAs): (2) Carotid stenosis, bilateral: PLAN: Plan TIA with recent stroke -Was admitted from February 21 through February 22 with new diagnosis of left MCA stroke -Presenting symptoms have now resolved -MRI shows no new stroke -Continue aspirin -Plavix load in the emergency department -Continue Plavix 75 mg daily -TA showed high-grade stenosis bilaterally -Continue atorvastatin -Continue blood pressure control -PT/OT/speech therapy consult -EEG showed some abnormalities which could be consistent with possible seizure focus however during the test patient was seizure-free and responding appropriately it is noted that these also may be seen in the setting of an acute structural lesion/stroke -Continue Keppra as ordered High-grade bilateral carotid stenosis -Vascular surgery planning for OR on Wednesday morning at 730 -Preop stress test unremarkable -Continue aspirin/Plavix/statin Anemia -Like related to hospitalization -No signs of acute bleeding -Continue to monitor with repeat lab in a.m. on 04/08/2022 Hypertension -Continue home amlodipine -Continue hydralazine 20 mg p.o. twice daily -Continue home lisinopril -Continue to monitor--> blood pressure control is much better -As needed antihypertensives available Hyperlipidemia -Continue home statin -Total cholesterol was 70 with an LDL of 13 and an HDL of 42 Mild cognitive impairment -Family indicates that they have noted some word ending memory that worsened after her stroke event -Suspect early vascular dementia -Discussed with family that this is not reversible however if we can stop infarct from happening at that hopefully the memory loss will stagnate Suspected COPD -Continue DuoNebs -Good pulmonary toilet -Would recommend pulmonary follow-up after discharge -Tobacco cessation discussed with patient Ongoing tobacco abuse -Encourage cessation -Nicotine replacement therapy in place DVT prophylaxis -Continue enoxaparin for DVT prophylaxis CODE STATUS -Full code Charges/Coding Visit Charges Inpatient E&M: 74536 Subs Hosp L2
[2022-04-06] MEDS: Atorvastatin Calcium 40 MG Tablet PO (22:09)
[2022-04-07] VITALS (11 sets, daily range): BP systolic 111–124; BP diastolic 53–75; PULSE 71–95; RESP 16–20; TEMP 36.4–37; O2SAT 95–98; BMI 18.0
[2022-04-07] MEDS: hydrALAZINE 10 MG Tablet 20 MG PO ×2 (05:51→15:10)
[2022-04-07] MEDS: Enoxaparin 40 MG/0.4 ML Syringe SC (09:42)
[2022-04-07] MEDS: Cholecalciferol (VIT D3) 25 MCG TABLET (1,000 UNITS) 50 MCG PO (09:42)
[2022-04-07] MEDS: levETIRAcetam 500 MG Tablet PO ×2 (09:42→21:53)
[2022-04-07] MEDS: amLODIPine 10 MG Tablet PO (09:42)
[2022-04-07] MEDS: Aspirin 81 MG TAB.CHEW PO (09:42)
[2022-04-07] MEDS: Clopidogrel Bisulfate 75 MG Tablet PO (09:42)
[2022-04-07] MEDS: guaiFENesin 600 MG Tablet PO ×2 (09:42→21:53)
[2022-04-07] MEDS: Lisinopril 40 MG Tablet PO (09:42)
[2022-04-07] MEDS: Ensure Plus High Protein 120 ML LIQUID PO ×3 (09:50→21:53)
--- NOTE | 2022-04-07 10:00 | PCM.PN.HOSP ---
Subjective Subjective Patient denies any issues through the night. Remains a bit anxious about surgery tomorrow. Anxious to get it done and go home. No neurological changes since yesterday. Objective Data Objective Data Vital Signs: Vital Signs Temp Pulse Resp BP Pulse Ox O2 Del Method 97.5 F L 76 20 H 117/59 L 96 Room Air 04/07/22 05:49 04/07/22 05:51 04/07/22 05:49 04/07/22 05:49 04/07/22 05:49 04/07/22 09:52 Oxygen Delivery Method Room Air Weight: 44.8 kg Body Mass Index (BMI) 18.0 Intake & Output: Intake and Output for Last 24 Hours 04/05/22 04/06/22 04/07/22 23:59 23:59 23:59 Intake Total 1171.67 / 1171.67 1100 / 1250 250 / 250 Balance 1171.67 / 1171.67 1100 / 1250 250 / 250 Medical Nutrition Assessment Dietitian: Malnutrition Criteria Met Start: 04/01/22 14:56 Freq: Status: Active Protocol: Document 04/04/22 12:47 RMA (Rec: 04/04/22 12:48 RMA [id number]) Nutrition Malnutrition Evidence of Malnutrition Exists Yes Malnutrition (moderate): Chronic Evidenced By Suboptimal Energy Intake ( Moderate),Physical Changes ( Moderate) Clinical Problem Chronic Disease or Condition Related Malnutrition Etiology moderate, chronic malnutrition related to inadequate energy intake Signs/Symptoms as evidenced by estimated PO intake meeting <75% of estimated energy needs > 3 months; unintentional wt loss of 4.2#/4% ~1 month; moderate muscle wasting/fat loss evident per physical exam in orbital, temporal, clavicle, acromion, and clavicle areas; BMI 18.1 Status Active Problem Recommendation Dietitian Recommendations/Changes Will continue cardiac diet as ordered with 120mL ensure plus high protein 4 times per day w/ medpass. Additional ONS as needed if PO declines at meals. Lab / Micro Data Result Diagrams: 04/06/22 05:30 04/06/22 05:30 Physical Exam Const alert, oriented x3 and no apparent distress Constitutional Narrative: Thin, upper middle-aged white female sitting up in bed, watching television, appears much older than stated age, appears comfortable and nontoxic Resp Resp Narrative: Diminished but clear Cardio regular rate, regular rhythm, S1 normal heart sound and S2 normal heart sound GI normal to inspection, nondistended, normoactive bowel sounds Extremity no clubbing, cyanosis or edema Neuro oriented x3, CN's II-XII intact bilaterally, moves all extremities and no focal motor deficits Speech: speech normal Assessment & Plan Assessment/Plan (1) Recurrent cerebrovascular accidents (CVAs): (2) Carotid stenosis, bilateral: PLAN: Plan TIA with recent stroke -Was admitted from February 21 through February 22 with new diagnosis of left MCA stroke -Presenting symptoms have not recurred and remain resolved -MRI showed no new stroke 03/31/2022 -Continue aspirin -Continue Plavix 75 mg daily -CTA showed high-grade stenosis bilaterally -Continue atorvastatin -Continue blood pressure control -PT/OT/speech therapy consult -EEG showed some abnormalities which could be consistent with possible seizure focus however during the test patient was seizure-free and responding appropriately it is noted that these also may be seen in the setting of an acute structural lesion/stroke -Continue Keppra High-grade bilateral carotid stenosis -Carotid endarterectomy tomorrow morning at 730 -Preop stress test unremarkable -Continue aspirin/Plavix/statin Anemia -Like related to hospitalization -No signs of acute bleeding -Continue to monitor with repeat lab in a.m. on 04/08/2022 Hypertension -Continue home amlodipine -Continue hydralazine 20 mg p.o. twice daily -Continue home lisinopril -Continue to monitor--> blood pressure control is much better -As needed antihypertensives available Hyperlipidemia -Continue home statin -Total cholesterol was 70 with an LDL of 13 and an HDL of 42 Mild cognitive impairment -Family indicates that they have noted some word ending memory that worsened after her stroke event -Suspect early vascular dementia -Discussed with family that this is not reversible however if we can stop infarct from happening at that hopefully the memory loss will stagnate Suspected COPD -Continue DuoNebs -Good pulmonary toilet -Would recommend pulmonary follow-up after discharge -Tobacco cessation discussed with patient Ongoing tobacco abuse -Encourage cessation -Nicotine replacement therapy in place DVT prophylaxis -Continue enoxaparin for DVT prophylaxis CODE STATUS -Full code Charges/Coding Visit Charges Inpatient E&M: 93455 Subs Hosp L1
--- NOTE | 2022-04-07 14:25 | PCM.PN.SRG ---
Subjective Subjective No new issues. Nervous but ready for OR tomorrow. Objective Data Objective Data Vital Signs: Vital Signs Temp Pulse Resp BP Pulse Ox O2 Del Method 97.8 F 84 16 115/59 L 95 Room Air 04/07/22 09:40 04/07/22 09:40 04/07/22 09:40 04/07/22 09:40 04/07/22 09:40 04/07/22 09:52 Oxygen Delivery Method Room Air Weight: 98 lb 12.273 oz Body Mass Index (BMI) 18.0 Intake & Output: Intake and Output for Last 24 Hours 04/05/22 04/06/22 04/07/22 23:59 23:59 23:59 Intake Total 1171.67 / 1171.67 1100 / 1250 250 / 250 Balance 1171.67 / 1171.67 1100 / 1250 250 / 250 Medical Nutrition Assessment Dietitian: Malnutrition Criteria Met Start: 04/01/22 14:56 Freq: Status: Active Protocol: Document 04/04/22 12:47 RMA (Rec: 04/04/22 12:48 RMA [id number]) Nutrition Malnutrition Evidence of Malnutrition Exists Yes Malnutrition (moderate): Chronic Evidenced By Suboptimal Energy Intake ( Moderate),Physical Changes ( Moderate) Clinical Problem Chronic Disease or Condition Related Malnutrition Etiology moderate, chronic malnutrition related to inadequate energy intake Signs/Symptoms as evidenced by estimated PO intake meeting <75% of estimated energy needs > 3 months; unintentional wt loss of 4.2#/4% ~1 month; moderate muscle wasting/fat loss evident per physical exam in orbital, temporal, clavicle, acromion, and clavicle areas; BMI 18.1 Status Active Problem Recommendation Dietitian Recommendations/Changes Will continue cardiac diet as ordered with 120mL ensure plus high protein 4 times per day w/ medpass. Additional ONS as needed if PO declines at meals. Lab / Micro Data Result Diagrams: 04/06/22 05:30 04/06/22 05:30 Physical Exam Const alert, oriented x3, no apparent distress and healthy appearing General Appearance: cooperative; Negative for combative or lethargic Orientation / Consciousness: awake Exam Limitations: no limitations HEENT Head and Scalp: normocephalic and atraumatic Eyes EOMs intact bilaterally General Eye: normal appearance of both eyes Neck full ROM General: trachea midline Resp normal respiratory effort and no use of accessory muscles Effort and Inspection: Negative for labored, stridor or audible wheezes Cardio regular rate and regular rhythm Back/Spine Cervical Spine: cervical ROM normal Neuro oriented x3, CN's II-XII intact bilaterally, no focal motor deficits and no sensory deficits noted Psych thought process normal, cooperative, affect normal, speech normal and activity/motor behavior normal Assessment & Plan Assessment/Plan (1) Carotid stenosis, bilateral: PLAN: -OR tomorrow for left CEA -NPO for surgery -ancef -questions answered Charges/Coding Visit Charges Inpatient E&M: 01790 Subs Hosp L1
[2022-04-07] MEDS: Atorvastatin Calcium 40 MG Tablet PO (21:53)
[2022-04-08] VITALS (26 sets, daily range): BP systolic 93–148; BP diastolic 34–66; PULSE 72–102; RESP 11–20; TEMP 36.3–37.1; O2SAT 94–99; BMI 18.0
--- NOTE | 2022-04-08 | IMM_PTH ---
PATIENT: SIERRA SANTANA LOC: ICU U#:[id number] AGE/SX: 67/F ROOM: [place] [address] RE03/31/[address]: Dr. Nery Maya DO : 1955 BED: 1 DIS: 04/09/2022 SPEC #: [id number] RECD: 04/10/22 13:25 STATUS: SOUT REQ #: [id number] VANGIE: 04/08/22 00:[address]: Kwame Cai DEPT: IMMUNOHISTOCHEMISTRY RECD BY: Galina Hood ENTERED: 04/10/22 13:27 SP TYPE: IMMUNO OTHR DR: MD Dr. Kwame Jamil DO Dr. Kathryn Lee, DO Christy Haagen, SALES SUPPORT MANAGER-C Tissues: Carotid artery, NOS Procedures: CD138 (add) KAPPA (add) LAMBDA (add) CD45 (initial) PHYSICIAN & INSTITUTION [place] [address] SPECIMEN INFORMATION: Tissue Source: Left carotid plaque Clinical Info: Carotid stenosis Specimen Number: [id number] CPT code: 30552, 81374 x3 METHODOLOGY: Deparaffinized sections of prefer/formalin-fixed tissue or PAP/DQ stained slides are incubated with monoclonal/polyclonal antibodies/oligonucleotide probes. Localization is made via biotin free immunoperoxidase method. Appropriate controls are performed and reacted as expected. Results on target cell population are indicated in the following table: RESULTS: ANTIBODY / CLONE RESULT CD45 (RP2/18) positive CD138 (B-A38) positive Force (polyclonal) negative Lambda (polyclonal) negative These tests were developed and their performance characteristics determined by [facility]. They may not have been cleared or approved by the U.S. Food and Drug Administration. The FDA has determined that such clearance or approval is not necessary. The above immunohistochemical/dualISH markers are ordered and reviewed by the Pathologist. INTERPRETATION: Left carotid plaque, endarterectomy: No evidence of lymphoproliferative disorder or plasma cell dyscrasia. AM:rupinder 04/13/2022
[2022-04-08 04:18] LABS: Absolute Lymphocyte Count 1.85 X10^3/uL (0.83-4.51); Basophil# 0.04 X10^3/uL; Basophil% 0.6 % (0-1); Eosinophil# 0.38 X10^3/uL; Eosinophils% 5.5 % (0-5); Hemoglobin 10.3 g/dL (12.0-15.0); Lymphocyte # 1.85 X10^3/ul (0.83-4.51); Mean Corp Hgb Conc 33.2 g/dL (32-36); Mean Corpuscular Hgb 30.7 pg (27.0-32.0); Mean Corpuscular Volume 92.5 fL (81-99); Mean Platelet Vol. 8.4 fl (6.2-12.0); Monocyte# 0.52 X10^3/uL; Monocyte% 7.6 % (0-10); NRBC Flagged by Analyzer 0 % (0-5); Neutrophil # 4.04 X10^3/uL (2.7-7.7); Platelet Count 255 K/mm3 (150-450); RBC Distribution Width CV 12.3 % (11.6-14.6); RBC Distribution Width SD 41.9 fl (35.1-43.9); Red Blood Count 3.35 M/mm3 (4.2-5.4); White Blood Count 6.9 K/mm3 (4.4-11.0)
[2022-04-08 04:34] LABS: AST(SGOT) 75 U/L (15-37); Alanine Aminotransfer ALT/SGPT 124 U/L (13-56); Albumin, Serum 3.2 g/dL (3.2-5.0); Alkaline Phosphatase 155 U/L (45-117); Anion Gap 5 (5-15); BUN 26 mg/dL (7-18); BUN/Creat Ratio 29.7 RATIO (10-20); Calcium,Total 9.1 mg/dL (8.5-10.1); Chloride 106 mmol/L (98-107); Creatinine, Serum 0.88 mg/dL (0.55-1.02); EST Glomerular Filtration Rate 68 mL/min (>60); Est Glom Filt Rate - Afr Amer 83 mL/min (>60); Estimated Creatinine Clearance 43.27 ml/min; Globulin 3.2 g/dL (2.2-4.2); Glucose 90 mg/dL (74-106); Magnesium 2.1 mg/dL (1.6-2.6); Phosphorus 3.3 mg/dL (2.5-4.9); Potassium 4.3 mmol/L (3.5-5.1); Protein, Total 6.4 g/dL (6.4-8.2); Sodium Level 136 mmol/L (136-145)
[2022-04-08] MEDS: Cefazolin 2 GM in 0.9% Normal Saline 100 ML IV (07:30)
--- NOTE | 2022-04-08 07:30 | PLAQ_PTH ---
PATIENT: SIERRA SANTANA LOC: ICU U#:[id number] AGE/SX: 67/F ROOM: [place] [address] RE03/31/[address]: Dr. Nery Maya DO : 1955 BED: 1 DIS: 04/09/2022 SPEC #: [id number] RECD: 04/08/22 11:45 STATUS: FRANCISCO REQ #: [id number] VANGIE: 04/08/22 07:[address]: Kwame Cai DEPT: SURGICAL PATHOLOGY RECD BY: Kizzy Hogue ENTERED: 04/08/22 13:31 SP TYPE: PLAQUE OTHR DR: MD Dr. Kwame Jamil DO Dr. Eric Turney, MD Dr. Kathryn Lee, DO Christy Haagen, SPENCER-C Tissues: PLAQUE Procedures: Decalcification bone/plaque Surgery Specimen Level III Comments: @ Ordering doctor for DEC edited from to @ by RODOLFO at 04/08/22 1429 @ Ordering doctor for SUIII edited from to @ by RODOLFO at 04/08/22 1429 @ Submitting doctor edited from to @ by RODOLFO at 04/08/22 1429 HEADER OPERATION: Carotid endarterectomy PRE-OP DIAGNOSIS: Carotid stenosis, bilateral TISSUE SUBMITTED: Left carotid plaque MICROSCOPIC DIAGNOSIS Left carotid plaque, endarterectomy: Calcified atheromatous plaque with associated chronic inflammation. See comment. AM:rupinder 04/10/2022 COMMENT The inflammation consists primarily of polytypic plasma cells ([id number]). Clinical correlation is suggested. Case has been reviewed in consultation with Dr. Ortiz who concurs with the above diagnosis. IDC:PEREZ GROSS DESCRIPTION Received in fixative is one container labeled with the patient's name and designated left carotid plaque. The specimen consists of a previously opened tubular piece of bruce, indurated tissue measuring 3 cm in length and up to 1 cm in diameter. The specimen cuts with gritty sensation. Focal partial obliteration of the lumen is noted. The entire specimen is submitted in one cassette after decalcification. / PEREZ:rupinder 04/08/2022 TC:3 CPT: 35996, 17573
[2022-04-08] MEDS: Heparin Injection (Vial) 5,000 UNIT/ML VIAL 5000 UNIT (08:30)
[2022-04-08] MEDS: Lactated Ringers 1,000 ML 15 ML IV (10:00)
--- NOTE | 2022-04-08 11:16 | NURSING ---
Called report to ICU Bushra PALM
--- NOTE | 2022-04-08 13:19 | PCM.OPRPT ---
Report of Operation Date of Procedure: 04/08/22 Pre-Operative Diagnosis: Symptomatic left carotid artery stenosis Post-Operative Diagnosis: Same Surgery/Procedure Performed:: Left carotid endarterectomy and patch angioplasty Description of Surgical Findings:: Moving all extremities to command, cranial nerves intact post procedure Surgeon: Kwame Cai Type of Anesthesia: General Drains: PHOEBE-19 Indonesian Estimated Blood Loss (mL): 49 Description of Procedure: HPI: Patient is a 67-year-old female previously presented with left hemispheric for stroke symptoms. MRI revealed significant sized ischemic injury, though the majority of her symptoms had nearly resolved. She then represented several weeks later with recurrence of transient left hemispheric symptoms, particularly expressive aphasia. CT angiography revealed a 85% stenosis of left carotid artery and given her recurrent symptoms and fairly short duration she is taken now for urgent endarterectomy while admitted as inpatient. Description of procedure: Upon obtaining form consent and verification correct patient procedure site patient was taken the operating where she was placed under anesthesia. She then had an arterial line placed in the left radial artery and she was positioned prepped and draped in usual sterile fashion. Timeout was then performed an oblique incision made along the anterior border the sternocleidomastoid. Bovie cautery was then used to dissect down through subcutaneous tissue down the level of platysma, and the platysma was divided. Self-retaining retractors and placed in position and further dissection was carried down to the anterior border the sternocleidomastoid. This was then dissected free and retracted posterior laterally exposing the carotid sheath. Sharp dissection was then used to dissect free the anterior border of internal jugular vein and the facial vein identified, ligated, and divided. At this point the patient was heparinized and serial ACT measurements performed every 30 minutes with heparin reducing as needed. We then dissected free the proximal common carotid artery with care taken to identify protect the vagus nerve and a right angle used to place a vessel loop on the proximal vessel. We then carried our dissection to the internal carotid artery beyond the area of visible plaque which was then dissected free and a right angle was placed Vesseloops. Care was taken to identify protect the hypoglossal nerve as well as the vagus nerve at this location. Finally we dissected free the external carotid artery and a right angle was in place a vessel loop. Vessels were then occluded first the internal follow-up with common the external, and longitudinal arteriotomy was created with 11 blade extended with [place] scissors beyond the area of plaque on theinternal carotid artery. A 10 [place] shunt was then placed first distally in the internal carotid artery, and then on the backbleed before placing in the common carotid artery proximally. The shunt was interrogated with Doppler and found to be patent with low resistance signal. We then performed endarterectomy with a freer elevator with satisfactory endpoint distally onto the internal carotid artery and eversion endarterectomy of the external carotid artery. The distal endpoint in the internal carotid artery was then tacked with 7-0 Prolene sutures interrupted. Next a bovine pericardial patch was then brought on the field and prep for customer records division supervisor instructions and then secured in position using 6-0 Prolene in a running fashion. Part of the suture line the shunt was withdrawn and the vessels backbled into the arteriotomy. After completing the suture line the internal carotid artery was allowed to backbleed and the bifurcation before reoccluding as origin. Clamps were then removed from the external and common carotid arteries allowing 10 heartbeats of antegrade flow to flush into the external carotid artery before reestablishing flow into the internal carotid artery. Vessel was interrogated with Doppler and the internal carotid artery was patent with low resistance signal. The external carotid artery initially had a high resistant signal but after further loosening the vessel loop at a more appropriate Doppler signal. 1 area required repair on the posterior aspect of the distal portion of the endarterectomy which was performed with a single 6-0 Prolene simple suture. Heparin reversed with protamine and the vessels reevaluated with Doppler with no change in Doppler signal. The wound was then inspected for hemostasis, and Surgicel topical hemostatic applied. A 19 Indonesian channel PHOEBE was then placed via separate stab incision and incision closed with 2-0 Vicryl, 3-0 Vicryl, 4-0 Monocryl and Dermabond for the skin. At the conclusion of the case patient was awakened anesthesia moving all extremities to command with cranial nerves intact. She was then taken to the recovery room with dissipate admission to the intensive care unit for hemodynamic and neurologic monitoring.
[2022-04-08] MEDS: Clopidogrel Bisulfate 75 MG Tablet PO (13:45)
[2022-04-08] MEDS: Aspirin 81 MG TAB.CHEW PO (13:45)
[2022-04-08] MEDS: guaiFENesin 600 MG Tablet PO ×2 (13:45→22:50)
[2022-04-08] MEDS: Cholecalciferol (VIT D3) 25 MCG TABLET (1,000 UNITS) 50 MCG PO (13:46)
[2022-04-08] MEDS: Lacosamide 50 MG Tablet PO ×2 (13:46→22:50)
--- NOTE | 2022-04-08 14:28 | PN.HOSP_ITS ---
Subjective Subjective Patient went to the OR today for left carotid endarterectomy. Procedure went well. Patient complaining that she is thirsty and would like some water. Possible discharge tomorrow if patient remains hemodynamically stable. Objective Data Objective Data Vital Signs: Vital Signs Temp Pulse Resp BP Pulse Ox O2 Del Method 98.0 F 85 14 125/46 H 99 Room Air 04/08/22 13:00 04/08/22 14:00 04/08/22 14:00 04/08/22 14:00 04/08/22 14:00 04/08/22 14:00 Oxygen Delivery Method Room Air Weight: 44.8 kg Body Mass Index (BMI) 18.0 Intake & Output: Intake and Output for Last 24 Hours 04/06/22 04/07/22 04/08/22 23:59 23:59 23:59 Intake Total 1100 / 1250 1670 / 1670 2210 / 2210 Balance 1100 / 1250 1670 / 1670 2210 / 2210 Medical Nutrition Assessment Dietitian: Malnutrition Criteria Met Start: 04/01/22 14:56 Freq: Status: Active Protocol: Document 04/04/22 12:47 RMA (Rec: 04/04/22 12:48 RMA [id number]) Nutrition Malnutrition Evidence of Malnutrition Exists Yes Malnutrition (moderate): Chronic Evidenced By Suboptimal Energy Intake ( Moderate),Physical Changes ( Moderate) Clinical Problem Chronic Disease or Condition Related Malnutrition Etiology moderate, chronic malnutrition related to inadequate energy intake Signs/Symptoms as evidenced by estimated PO intake meeting <75% of estimated energy needs > 3 months; unintentional wt loss of 4.2#/4% ~1 month; moderate muscle wasting/fat loss evident per physical exam in orbital, temporal, clavicle, acromion, and clavicle areas; BMI 18.1 Status Active Problem Recommendation Dietitian Recommendations/Changes Will continue cardiac diet as ordered with 120mL ensure plus high protein 4 times per day w/ medpass. Additional ONS as needed if PO declines at meals. Lab / Micro Data Result Diagrams: 04/08/22 04:10 04/08/22 04:10 Labs: Laboratory Results - last 24 hr 04/08/22 04:10: WBC 6.9, RBC 3.35 L, Hgb 10.3 L, Hct 31.0 L, MCV 92.5, MCH 30.7, MCHC 33.2, RDW Std Deviation 41.9, RDW Coeff of Ed 12.3, Plt Count 255, MPV 8.4, Immature Gran % (Auto) 0.300, Neut % (Auto) 59.0, Lymph % (Auto) 27.0, [place] % (Auto) 7.6, Eos % (Auto) 5.5 H, Baso % (Auto) 0.6, Absolute Neuts (auto) 4.0, Absolute Lymphs (auto) 1.85, Nucleated RBC % 0 04/08/22 04:10: Sodium 136, Potassium 4.3, Chloride 106, Carbon Dioxide 25.0, Anion Gap 5, BUN 26 H, Creatinine 0.88, Estim Creat Clear Calc 43.27, Est GFR (MDRD) Af Amer 83, Est GFR (MDRD) Non-Af 68, BUN/Creatinine Ratio 29.7 H, Glucose 90, Calcium 9.1, Phosphorus 3.3, Magnesium 2.1, Total Bilirubin 0.40, AST 75 H, ALT 124 H, Alkaline Phosphatase 155 H, Total Protein 6.4, Albumin 3.2, Globulin 3.2, Albumin/Globulin Ratio 1.0 Physical Exam Const alert, oriented x3 and no apparent distress Constitutional Narrative: Thin, upper middle-aged white female sitting up in bed, nursing at bedside, patient just returned from OR, appears much older than stated age, appears comfortable and nontoxic Nutritional Appearance: cachectic HEENT normocephalic, head/scalp atraumatic and moist oral mucous membranes Neck Neck Narrative: Postoperative dressing on left side of neck, PHOEBE drain in place with serosanguineous drainage Resp normal respiratory effort, no retractions, no use of accessory muscles and clear to auscultation bilaterally Resp Narrative: Diminished but clear Auscultation: Negative for crackles, rales, rhonchi or wheezes Cardio regular rate, regular rhythm, S1 normal heart sound, S2 normal heart sound, no murmurs, no rub, no gallops, no clicks and no JVD GI normal to inspection, nondistended, normoactive bowel sounds, soft to palpation, non-tender and non-distended Extremity no clubbing, cyanosis or edema Extremity Narrative: Decreased lean muscle mass, left radial art line in place Neuro oriented x3, CN's II-XII intact bilaterally, moves all extremities and no focal motor deficits Speech: speech normal Psych mental status grossly normal and affect normal Assessment & Plan Assessment/Plan (1) Recurrent cerebrovascular accidents (CVAs): (2) Carotid stenosis, bilateral: PLAN: Plan TIA with recent stroke -Was admitted from February 21 through February 22 with new diagnosis of left MCA stroke -Presenting symptoms have not recurred and remain resolved -MRI showed no new stroke 03/31/2022 -Continue aspirin -Continue Plavix 75 mg daily -CTA showed high-grade stenosis bilaterally -Continue atorvastatin -Continue blood pressure control -PT/OT/speech therapy consult -EEG showed some abnormalities which could be consistent with possible seizure focus however during the test patient was seizure-free and responding appropriately it is noted that these also may be seen in the setting of an acute structural lesion/stroke -Continue AED but switch from Keppra to Vimpat secondary to LFT elevations High-grade bilateral carotid stenosis -Carotid endarterectomy completed today -Patient tolerated procedure well -Preop stress test unremarkable -Continue aspirin/Plavix/statin Anemia -Like related to hospitalization -No signs of acute bleeding -Hemoglobin stable at 10.3 Hypertension -Continue home amlodipine -Continue hydralazine 20 mg p.o. twice daily -Continue home lisinopril -Continue to monitor--> blood pressure control is much better -As needed antihypertensives available Hyperlipidemia -Continue home statin -Total cholesterol was 70 with an LDL of 13 and an HDL of 42 Mild cognitive impairment -Family indicates that they have noted some word ending memory that worsened after her stroke event -Suspect early vascular dementia -Discussed with family that this is not reversible however if we can stop infarct from happening at that hopefully the memory loss will stagnate Suspected COPD -Continue DuoNebs -Good pulmonary toilet -Would recommend pulmonary follow-up after discharge -Tobacco cessation discussed with patient Ongoing tobacco abuse -Encourage cessation -Nicotine replacement therapy in place DVT prophylaxis -Continue enoxaparin for DVT prophylaxis CODE STATUS -Full code Charges/Coding Visit Charges Inpatient E&M: 72750 Subs Hosp L2
[2022-04-08 15:37] LABS: ACT Activated Clotting Time 121 sec (74-137)
[2022-04-08] MEDS: Cefazolin 1 GM/50 ML BAG IV ×2 (15:38→23:17)
[2022-04-08 15:47] LABS: ACT Activated Clotting Time 248 sec (74-137)
[2022-04-08 15:49] LABS: ACT Activated Clotting Time 237 sec (74-137)
--- NOTE | 2022-04-08 18:54 | NURSING ---
1300- doppler bilateral pedal pulses
[2022-04-08] MEDS: Ensure Plus High Protein 120 ML LIQUID PO (22:08)
[2022-04-08] MEDS: 0.9% Saline Lock 10 ML Syringe IV (22:08)
[2022-04-08] MEDS: Atorvastatin Calcium 40 MG Tablet PO (22:50)
[2022-04-09] VITALS (14 sets, daily range): BP systolic 121–155; BP diastolic 33–83; PULSE 77–100; RESP 15–21; TEMP 36.7–37.1; O2SAT 94–100; BMI 18.0
[2022-04-09 04:34] LABS: Absolute Lymphocyte Count 1.48 X10^3/uL (0.83-4.51); Absolute Neutrophil Count 8.1 X10^3/uL (2.0-7.7); Basophil# 0.01 X10^3/uL; Basophil% 0.1 % (0-1); Eosinophil# 0.01 X10^3/uL; Eosinophils% 0.1 % (0-5); Hematocrit 25.6 % (37-47); Hemoglobin 8.5 g/dL (12.0-15.0); Lymphocyte # 1.48 X10^3/ul (0.83-4.51); Mean Corp Hgb Conc 33.2 g/dL (32-36); Mean Corpuscular Hgb 30.9 pg (27.0-32.0); Mean Corpuscular Volume 93.1 fL (81-99); Mean Platelet Vol. 8.4 fl (6.2-12.0); Monocyte# 0.86 X10^3/uL; Monocyte% 8.1 % (0-10); NRBC Flagged by Analyzer 0 % (0-5); Neutrophil # 8.13 X10^3/uL (2.7-7.7); Platelet Count 240 K/mm3 (150-450); RBC Distribution Width CV 12.5 % (11.6-14.6); RBC Distribution Width SD 42.5 fl (35.1-43.9); Red Blood Count 2.75 M/mm3 (4.2-5.4); White Blood Count 10.6 K/mm3 (4.4-11.0)
[2022-04-09 04:51] LABS: AST(SGOT) 57 U/L (15-37); Alanine Aminotransfer ALT/SGPT 96 U/L (13-56); Albumin, Serum 2.9 g/dL (3.2-5.0); Alkaline Phosphatase 103 U/L (45-117); Anion Gap 7 (5-15); BUN 17 mg/dL (7-18); BUN/Creat Ratio 24.7 RATIO (10-20); Calcium,Total 8.2 mg/dL (8.5-10.1); Chloride 111 mmol/L (98-107); Creatinine, Serum 0.69 mg/dL (0.55-1.02); EST Glomerular Filtration Rate 90 mL/min (>60); Est Glom Filt Rate - Afr Amer 109 mL/min (>60); Estimated Creatinine Clearance 38.08 ml/min; Globulin 2.9 g/dL (2.2-4.2); Glucose 99 mg/dL (74-106); Magnesium 2.2 mg/dL (1.6-2.6); Potassium 4.5 mmol/L (3.5-5.1); Protein, Total 5.8 g/dL (6.4-8.2); Sodium Level 139 mmol/L (136-145)
[2022-04-09 05:00] LABS: Phosphorus 2.3 mg/dL (2.5-4.9)
[2022-04-09] MEDS: hydrALAZINE 10 MG Tablet 20 MG PO (06:44)
[2022-04-09] MEDS: amLODIPine 10 MG Tablet PO (09:17)
[2022-04-09] MEDS: Lisinopril 40 MG Tablet PO (09:17)
[2022-04-09] MEDS: Clopidogrel Bisulfate 75 MG Tablet PO (09:22)
[2022-04-09] MEDS: Aspirin 81 MG TAB.CHEW PO (09:22)
[2022-04-09] MEDS: guaiFENesin 600 MG Tablet PO (09:22)
[2022-04-09] MEDS: Enoxaparin 40 MG/0.4 ML Syringe SC (09:22)
[2022-04-09] MEDS: Ensure Plus High Protein 120 ML LIQUID PO (09:23)
[2022-04-09] MEDS: Lacosamide 50 MG Tablet PO (09:32)
[2022-04-09] MEDS: Cholecalciferol (VIT D3) 25 MCG TABLET (1,000 UNITS) 50 MCG PO (09:50)
--- NOTE | 2022-04-09 10:00 | CASEMGMT ---
Addendum entered by Wilfredo Khan 04/09/22 14:00: Vimpat e-scribed to [facility]. Call placed to [facility]. Vimpat is covered under pt's insurance. Co-pay for it is $133.33. NÉSTOR GREER spoke w/pt's daughter, Astrid, and she was made aware. She states this is affordable. She was also made aware that pharmacy reports they were unable to fill rx for hydralazine, as pt picked up a 90-day supply on 03/27. She is aware hydralazine dose was increased to 20 mg BID from the 10 mg BID she was taking prior to hospitalization. She denies having any further questions or discharge needs. Alissa MARKHAM RN, CM Original Note: NÉSTOR GREER NOTE: Pt is A/O and has been up ambulating in room. No discharge planning needs identified. Alissa MARKHAM RN, CM
--- NOTE | 2022-04-09 10:58 | DS.PCM_ITS ---
Providers Date of Admission: 03/31/22 Date of Discharge: 04/09/22 Primary Care Physician: JONY Kelly Consultations 03/31/22 16:24 Consult: Vascular Surgery Routine Consulting Provider: Kwame Cai Reason for Consult: carotid stenosis EMERGENT Consult: No MD Notified: Yes Date Notified: 03/31/22 Time Notified: 15:46 Method of Notification: ED Physician Initiated Reason For Visit: RECURRENT CVA, HIGH GRADE CAROTID STENOSIS Diagnosis Discharge Diagnosis (1) Recurrent cerebrovascular accidents (CVAs): Status: Acute Code(s): I63.9 - Cerebral infarction, unspecified (2) Carotid stenosis, bilateral: Status: Acute Code(s): I65.23 - Occlusion and stenosis of bilateral carotid arteries Medications at Discharge Home Medications alendronate 70 mg tablet 70 mg PO MO BONES 02/20/22 amlodipine 10 mg tablet 10 mg PO DAILY blood pressure 02/20/22 cholecalciferol (vitamin D3) 50 mcg (2,000 unit) capsule 2,000 unit PO DAILY supplement 02/20/22 lisinopril 40 mg tablet 40 mg PO DAILY blood pressure 02/20/22 aspirin 81 mg chewable tablet 81 mg PO BREAKFAST heart health 03/31/22 atorvastatin 40 mg tablet 40 mg PO QHS cholesterol 03/31/22 clopidogrel 75 mg tablet 75 mg PO DAILY #30 tabs 04/09/22 hydralazine 10 mg tablet 20 mg PO BID #120 tabs 04/09/22 lacosamide 50 mg tablet (Vimpat) 50 mg PO BID #60 tabs 04/09/22 Hospital Course Operations - (Left carotid endarterectomy) Procedures Nuclear stress test and - (CT brain/CTA head and neck/MRI brain) Summary of Care Provided Minutes Spent on Discharge: 39 Hospital Course: Mrs. Banerjee is a 67-year-old white female who presented to the emergency department at [facility] on 03/31/2022 with speech changes. The patient was recently admitted in February and diagnosed with an MCA stroke and presented to the emergency department this time for confusion and dysarthria. She was last seen normal at 1700 on the and was not seen again until 1400 on the day of admission. Patient underwent a work-up showed no new stroke or CAT scan.? She was seen by neurology in the emergency room and recommended further evaluation with an MRI and EEG.? Patient did have a CT angiogram that does show bilateral carotid stenosis and vascular surgery was contacted and recommended loading her with 30 mg of clopidogrel and to continue with that daily.? She was admitted to the telemetry floor and evaluated by vascular surgery (Dr. Cai). After evaluation it was recommended that she have a left carotid endarterectomy given her stroke findings from previous and her presenting symptoms at this hospitalization. All of her neurological changes resolved quite quickly after admission. She had no recurrent neurological admissions while she was hospitalized a preoperative stress test was performed and was negative for any inducible ischemia. An EEG was performed during her hospitalization given her clinical presentation and showed focal slowing with focal disturbance of the neuronal function of the left frontotemporal region with sharps and bursts of higher amplitude rhythmic activity suggestive of cortical irritability and possible seizure foci. It was noted that these findings may also be seen in the setting of an acute structural lesion/stroke. Patient was started on Keppra initially but had some liver enzyme elevation with this so she was transitioned to Vimpat 50 mg p.o. twice daily and was discharged home on this dose. She had no identifiable seizure activity during her hospital course. She will also need to follow-up with neurology for this as well as her previous stroke and referral was given at the time of discharge. The patient's blood pressure was optimized and she was maintained on her home aspirin and maintained on Plavix which is a new medication for her during her hospital course. She remained in the hospital given her recurrent symptoms along with her severe stenosis and carotid endarterectomy was done on 04/08/2022. She overall tolerated the procedure quite well and was having minimal pain. Her Kyler-Barrett drain was removed on the a.m. of 04/09/2022 and she had no significant blood pressure issues postoperatively. Her antihypertensives were titrated during her admission with her home hydralazine dose increased from 10 to 20 mg p.o. twice daily. She was maintained on her amlodipine and her lisinopril as previously ordered and her statin was consistent at 40 mg. She remained on her aspirin and Plavix was added. She will continue her Plavix at discharge. She has right carotid artery stenosis as well. Plan is for follow-up with Dr. Cai in 2 weeks to reeval uate her surgical site as well as discussed options and further evaluation for her right carotid artery. We recommended follow-up with her primary care physician within the next 2 weeks and neurology within the next 4-12 weeks. Smoking cessation was highly recommended and patient voiced understanding. She was discharged home in stable condition on 04/09/2022. Discharge diagnoses: TIA Recent MCA stroke Severe bilateral carotid stenosis Anemia-stable Hypertension Hyperlipidemia Mild cognitive impairment Suspected COPD Ongoing tobacco abuse Physical Exam Const alert, oriented x3 and no apparent distress Constitutional Narrative: Thin, upper middle-aged white female sitting up in a chair at the bedside, watching television, appears much older than stated age, appears comfortable and nontoxic General Appearance: cooperative, comfortable, well kempt and well developed Orientation / Consciousness: awake, oriented to person and oriented to place Exam Limitations: no limitations Nutritional Appearance: thin HEENT normocephalic, head/scalp atraumatic and moist oral mucous membranes HEENT Narrative: Mild hearing loss, dentition is fair, Mallampati is 2, no thrush Eyes PERRL, EOMs intact bilaterally and conjunctivae normal Eyes Narrative: No scleral icterus Neck no lymphadenopathy and supple Neck Narrative: Left side of neck with surgical incision noted-clean dry and intact, no drainage, mild swelling, trachea midline Resp normal respiratory effort, no retractions, no use of accessory muscles and clear to auscultation bilaterally Resp Narrative: Diminished but clear Auscultation: Negative for crackles, rales, rhonchi or wheezes Cardio regular rate, regular rhythm, S1 normal heart sound, S2 normal heart sound, no murmurs, no rub, no gallops, no clicks and no JVD Peripheral Pulses: pulses 2+ throughout GI normal to inspection, nondistended, normoactive bowel sounds, soft to palpation, non-tender and non-distended Extremity normal to inspection and no clubbing, cyanosis or edema Extremity Narrative: Decreased lean muscle mass Skin no rashes or lesions noted, skin turgor normal and no jaundice Skin Narrative: Postop surgical incision as noted above Neuro oriented x3, CN's II-XII intact bilaterally, moves all extremities, no focal motor deficits and no sensory deficits noted Neuro Narrative: Mild generalized weakness, gait normal Speech: speech normal Psych mental status grossly normal and affect normal Psych Narrative: Very pleasant and appropriately interactive Medical Records Data Medical Nutrition Assessment Dietitian: Malnutrition Criteria Met Start: 04/01/22 14:56 Freq: Status: Active Protocol: Document 04/09/22 10:48 AG (Rec: 04/09/22 10:48 AG [id number]) Nutrition Malnutrition Evidence of Malnutrition Exists Yes Malnutrition (moderate): Chronic Evidenced By Suboptimal Energy Intake ( Moderate),Physical Changes ( Moderate) Clinical Problem Chronic Disease or Condition Related Malnutrition Etiology moderate, chronic malnutrition related to inadequate energy intake Signs/Symptoms as evidenced by estimated PO intake meeting <75% of estimated energy needs > 3 months; unintentional wt loss of 4.2#/4% ~1 month; moderate muscle wasting/fat loss evident per physical exam in orbital, temporal, clavicle, acromion, and clavicle areas; BMI 18.1 Status Active Problem Recommendation Dietitian Recommendations/Changes recommend advance diet as tolerated to cardiac with 120mL ensure plus high protein 4 times per day w/ medpass. Weight / BMI Weight Weight: 45 kg Body Mass Index (BMI) 18.0 ABG / Lab / Microbiology Data Result Diagrams: 04/09/22 04:15 04/09/22 04:15 Laboratory: Laboratory Results - last 24 hr 04/08/22 07:55: Activated Clotting Time 121 04/08/22 08:52: Activated Clotting Time 248 H 04/08/22 09:30: Activated Clotting Time 237 H 04/09/22 04:15: Sodium 139, Potassium 4.5, Chloride 111 H, Carbon Dioxide 21.0, Anion Gap 7, BUN 17, Creatinine 0.69, Estim Creat Clear Calc 38.08, Est GFR (MDRD) Af Amer 109, Est GFR (MDRD) Non-Af 90, BUN/Creatinine Ratio 24.7 H, Glucose 99, Calcium 8.2 L, Magnesium 2.2, Total Bilirubin 0.30, AST 57 H, ALT 96 H, Alkaline Phosphatase 103, Total Protein 5.8 L, Albumin 2.9 L, Globulin 2.9, Albumin/Globulin Ratio 1.0 04/09/22 04:15: WBC 10.6, RBC 2.75 L, Hgb 8.5 L, Hct 25.6 L, MCV 93.1, MCH 30.9, MCHC 33.2, RDW Std Deviation 42.5, RDW Coeff of Ed 12.5, Plt Count 240, MPV 8.4, Immature Gran % (Auto) 0.700, Neut % (Auto) 77.0 H, Lymph % (Auto) 14.0 L, [place] % (Auto) 8.1, Eos % (Auto) 0.1, Baso % (Auto) 0.1, Absolute Neuts (auto) 8.1 H, Absolute Lymphs (auto) 1.48, Nucleated RBC % 0 04/09/22 04:15: Phosphorus 2.3 L D/C Instructions Discharge Diet: Low fat / Low cholesterol Discharge Activity: Return to Normal Activity Return to work on: 04/20/22 Meaningful Use Info Meaningful Use Diagnoses (Choose all that apply): None applicable Discharge Plan Admission Admit Date/Time: 03/31/22 15:40 Primary Reason for Your Visit: Dysarthria Attending Provider: Nery Maya Primary Care Provider: Diana Mina NP Consulting Providers: Kwame Keenan ; Nery Maya ; Johanny Dunbar ; Kwame Cai Discharge Orders/Prescriptions Prescriptions: New clopidogrel 75 mg Tablet 75 mg PO DAILY Qty: 30 2RF lacosamide [Vimpat] 50 mg Tablet 50 mg PO BID Qty: 60 2RF hydralazine 10 mg tablet 20 mg PO BID Qty: 120 2RF Continued alendronate 70 mg tablet 70 mg PO MO Label Comments: Take 1 tablet by mouth one time a week. Take with a full glass of water, on an empty stomach; do NOT lie down for 30minutes. amlodipine 10 mg tablet 10 mg PO DAILY Label Comments: Take 1 tablet by mouth once daily. lisinopril 40 mg tablet 40 mg PO DAILY Label Comments: TAKE 1 TABLET BY MOUTH DAILY cholecalciferol (vitamin D3) 50 mcg (2,000 unit) capsule 2,000 unit PO DAILY Label Comments: Take 1 capsule by mouth once daily. atorvastatin 40 mg tablet 40 mg PO QHS aspirin 81 mg tablet,chewable 81 mg PO BREAKFAST Discontinued hydralazine 10 mg tablet 10 mg PO BID Referrals / Follow Up: Kwame Cai MD [Med Staff - Active Staff] - Within 2 Weeks (Office will call you for an appointment) Ramsey Gonzalez MD [Non-Staff] - Within 3 Months (For stroke follow-up) Diana Mina NP, INCIDENT RESPONSE ANALYST-C [Primary Care Provider] - Within 1 Month Disposition Disposition (needs filled in before D/C Order can be placed): Home, Self Care Charges/Coding Visit Charges Inpatient E&M: 94669 Disch Hosp
--- NOTE | 2022-04-09 12:59 | CHAPLAIN ---
Type of Pastoral Visit _x__ Initial Visit ___ Follow-up Visit ___ On-call Visit ___ General Patient Visit ___ Spiritual Assessment ___ Family Conference ___ Bereavement ___ Rapid Response ___ Code Blue ___ Other (describe below) Pastoral Care Referral From _x__ Patient ___ Family ___ Nurse ___ Physician ___ Hose Wrapper ___ Cotton Puller ___ Other (describe below) Sacrament/Intervention ___ Active listening ___ Anointing ___ Protestant ___ Bereavement ___ Communion ___ Mariia exploration ___ ___ Life review ___ Prayer ___ Reconciliation ___ Sacrament of Sick _x__ Supportive presence ___ Wedding ___ Other (describe below) Pastoral Comments patient is sitting in a chair with blankets on the floor; asked pt if she wanted blankets and she reached for them; offered support and patient stated my daughter prayed for me yesterday, she's mormonism; asked pt about herself and she stated I'm going to live with my daughter; asking how she felt about that arrangement the pt stated she takes care of me anyway, my daughter prayed with me yesterday, she goes to [employer] all the time; otherwise pt did not engage in conversation and she stated that she was fine
== END 2022-04-09 13:45 | disposition home or self-care (01) | DRG 39 ==
LOC: ED 15:00 → PCU 15:55 → ICU 04-08 11:16
PROVIDERS: Internal Medicine; Surgery Trauma Surgery; Emergency Provider Emergency Medicine; PCP Registered Nurse; Visit Provider Internal Medicine
PROC: 03CN0ZZ Extirpation of Matter from Left External Carotid Artery, Open Approach (ICD-10-PCS; CPT 35301; principal; 2022-04-08 07:10)
DX: I65.23 Occlusion and stenosis of bilateral carotid arteries (principal); D64.9 Anemia, unspecified; F01.50 Vascular dementia, unspecified severity, without behavioral disturbance, psychotic disturbance, mood disturbance, and anxiety; J44.9 Chronic obstructive pulmonary disease, unspecified; E78.5 Hyperlipidemia, unspecified; I10 Essential (primary) hypertension; F17.210 Nicotine dependence, cigarettes, uncomplicated; Z79.01 Long term (current) use of anticoagulants; Z79.02 Long term (current) use of antithrombotics/antiplatelets; Z79.82 Long term (current) use of aspirin; Z79.899 Other long term (current) drug therapy; Z86.73 Personal history of transient ischemic attack (TIA), and cerebral infarction without residual deficits; Z28.310 Unvaccinated for COVID-19; Z28.9 Immunization not carried out for unspecified reason
CPT/HCPCS: 36415; 70450; 70496; 70498; 70551; 71045; 78452; 80048; 80053; 80061; 81001; 82962; 83735; 84100; 84484; 85025; 85347; 85610; 85730; 88304; 88311; 88341; 88342; 92507; 92523; 93005; 93017; 94640; 94762; 95819; 97161; 97802; 97803; 99251; 99285; 99406; A9500; J7040; J7050; J7120; Q9967; A4216; G0463; J2405; J2785

== ENCOUNTER → 2022-04-27 | Outpatient (CLI) | payer MEDICARE, SELFPAY ==
[2022-04-27 12:31] LABS: Absolute Lymphocyte Count 2.53 X10^3/uL (0.83-4.51); Absolute Neutrophil Count 7.2 X10^3/uL (2.0-7.7); Basophil# 0.05 X10^3/uL; Basophil% 0.4 % (0-1); Eosinophil# 0.71 X10^3/uL; Eosinophils% 6.3 % (0-5); Hematocrit 33.2 % (37-47); Hemoglobin 10.8 g/dL (12.0-15.0); Lymphocyte # 2.53 X10^3/ul (0.83-4.51); Lymphocyte % 22.4 % (19-41); Mean Corp Hgb Conc 32.5 g/dL (32-36); Mean Corpuscular Hgb 30.8 pg (27.0-32.0); Mean Corpuscular Volume 94.6 fL (81-99); Mean Platelet Vol. 8.7 fl (6.2-12.0); Monocyte# 0.73 X10^3/uL; Monocyte% 6.5 % (0-10); NRBC Flagged by Analyzer 0 % (0-5); Neutrophil % 63.9 % (47-70); Platelet Count 328 K/mm3 (150-450); RBC Distribution Width CV 12.7 % (11.6-14.6); RBC Distribution Width SD 43.9 fl (35.1-43.9); RET-HE 35.3 pg (30-35); Red Blood Count 3.51 M/mm3 (4.2-5.4); White Blood Count 11.3 K/mm3 (4.4-11.0)
[2022-04-27 12:40] LABS: Vitamin B12 579 pg/mL (211-911)
[2022-04-27 13:16] LABS: Erythrocyte Sedimentation Rate 18 mm/hr (0-30)
[2022-04-27 13:32] LABS: AST(SGOT) 23 U/L (15-37); Alanine Aminotransfer ALT/SGPT 33 U/L (13-56); Albumin, Serum 3.8 g/dL (3.2-5.0); Alkaline Phosphatase 149 U/L (45-117); Anion Gap 8 (5-15); BUN 25 mg/dL (7-18); Calcium,Total 9.8 mg/dL (8.5-10.1); Chloride 103 mmol/L (98-107); Creatinine, Serum 1.04 mg/dL (0.55-1.02); EST Glomerular Filtration Rate 56 mL/min (>60); Est Glom Filt Rate - Afr Amer 68 mL/min (>60); Ferritin 373 ng/mL (8-252); Globulin 3.7 g/dL (2.2-4.2); Glucose 108 mg/dL (74-106); Iron 104 ug/dL (50-170); Iron Binding Capacity,Total 278 ug/dL (250-450); PERCENT IRON SATURATION 37.4 % (15.0-55.0); Potassium 5.3 mmol/L (3.5-5.1); Protein, Total 7.5 g/dL (6.4-8.2); Sodium Level 132 mmol/L (136-145); Thyroid Stim Hormone (TSH) 1.19 uIU/mL (0.358-3.74)
[2022-04-28 16:28] LABS: ANTINUCLEAR ANTIBODIES DIRECT Negative (Negative)
[2022-05-04 14:08] LABS: Complement C3 114 mg/dL (82-167); Dilute Prothrombin Time (dPT) 36.9 sec (0.0-47.6); Dilute Russell Viper Venom 35.7 sec (0.0-47.0); Folate, RBC (Hct) Test 32.3 % (34.0-46.6); Folates, RBC Test 876 ng/mL (>498); PTT-LA 34.6 sec (0.0-51.9); Protein C Antigen 108 % (60-150); Protein S, Free 97 % (61-136); Thrombin Time 16.7 sec (0.0-23.0); Vitamin B1, Thiamine 250.1 nmol/L (66.5-200.0)
[2022-05-05 18:16] LABS: Anti-Cardiolipin Ab, IgA, Qn < 9 APL U/mL (0-11); Anti-Cardiolipin Ab, IgG, Qn < 9 GPL U/mL (0-14); Anti-Cardiolipin Ab, IgM, Qn < 9 MPL U/mL (0-12); Anti-Thrombin 3 AG, Immunol 104 % (72-124); Antithrombin 3 Function 121 % (75-135); Complement CH50 > 60 U/mL (>41); Protein C, Functional 117 % (73-180); Protein S, Funtional 96 % (63-140); Protein S, Total 93 % (60-150)
[2022-05-05 18:17] LABS: Interpretation Comment: (.)
== END | disposition home or self-care (01) ==
PROVIDERS: PCP Registered Nurse; Referring Provider Psychiatry & Neurology Neurology; Visit Provider Psychiatry & Neurology Neurology
DX: D64.9 Anemia, unspecified (principal); F03.90 Unspecified dementia, unspecified severity, without behavioral disturbance, psychotic disturbance, mood disturbance, and anxiety; I67.9 Cerebrovascular disease, unspecified; R94.01 Abnormal electroencephalogram [EEG]; Z86.2 Personal history of diseases of the blood and blood-forming organs and certain disorders involving the immune mechanism
CPT/HCPCS: 36415; 80053; 81240; 81241; 82140; 82607; 82728; 82746; 82747; 83540; 83550; 84425; 84443; 85014; 85025; 85045; 85300; 85301; 85302; 85303; 85305; 85306; 85652; 86038; 86147; 86160; 86162; 86225; 86235

== ENCOUNTER → 2022-05-27 | Outpatient (CLI) | payer MEDICARE, SELFPAY | END | disposition home or self-care (01) | PROVIDERS: PCP Registered Nurse; Referring Provider Psychiatry & Neurology Neurology; Visit Provider Psychiatry & Neurology Neurology | DX: F03.90 Unspecified dementia, unspecified severity, without behavioral disturbance, psychotic disturbance, mood disturbance, and anxiety (principal); I67.9 Cerebrovascular disease, unspecified | CPT/HCPCS: 95819 ==

== ENCOUNTER → 2022-06-01 | Outpatient (CLI) | payer MEDICARE, SELFPAY ==
--- NOTE | 2022-06-01 13:44 | ART_ITS ---
Reason For Study: ABSENT PEDAL PULSES BILATERAL Procedure A bilateral lower extremity continuous wave Doppler with analog waveform analysis and ankle brachial indexes. Left Segmental Pressures Left brachial= 159mmHg. Left posterior tibial artery = 61mmHg. Left dorsalis pedis artery = 60mmHg. The left posterior tibial artery waveforms are biphasic. The left dorsalis pedis waveforms are biphasic. Right Segmental Pressures Right brachial= 154mmHg. Right posterior tibial artery = 49mmHg. Right dorsalis pedis artery = 51mmHg. The right posterior tibial artery waveforms are biphasic. The right dorsalis pedis waveforms are monophasic. Indices The right resting ankle brachial index is 0.32. The right ankle brachial index by the posterior tibial artery is 0.31. The right ankle brachial index by the dorsalis pedis is 0.32. The left resting ankle brachial index is 0.38. The left ankle brachial index by the posterior tibial artery is 0.38. The left ankle brachial index by the dorsalis pedis is 0.38. VL/Ankle Brachial Index Interpretation Summary Right ANAHY 0.32, severe arterial insufficiency. Doppler/PVR waveforms of the rig ht ankle severely diminished. Left ANAHY 0.38, severe arterial insufficiency. Doppler/PVR waveforms of the left ankle severely diminished. Ordering Physician: Elder Garrison Referring Physician: Diana Mina DERRICK BOAT LEVER OPERATOR-C Performed By: Hailey Calvillo RVT, RDCS
--- NOTE | 2022-06-01 13:44 | CDUL_ITS ---
Reason For Study: carotid stenosis Rt. Velocities/BP Prox CCA 113.3/10.2 cm/sec. Mid CCA 126.8/21.2 cm/sec. Dist CCA 170.3/23.3 cm/sec. Prox ICA 308.4/18.0 cm/sec. Mid ICA 187.9/25.5 cm/sec. Dist ICA 92.6/18.0 cm/sec. Rt. ICA/CCA = 308.4/126.8=2.4. Prox ECA 375.1/18.0 cm/sec. Rt. Vert. 59.6/0.0 cm/sec. Right Extracranial There is heterogeneous, smooth atherosclerotic plaque noted in the right common carotid artery. There is heterogeneous, irregular atherosclerotic plaque noted in the right internal carotid artery. There is heterogeneous, irregular atherosclerotic plaque noted in the right external carotid artery. Antegrade flow is noted in the right vertebral artery. Procedure Carotid Duplex [id number]. This is a Carotid Duplex examination using B-mode, color flow and specral Doppler. The study was technically difficult. PT had difficulty lying still for exam. Exam performed in department. VL/Carotid Unilateral Interpretation Summary Severe (>70%) stenosis right extracranial internal carotid. The Right vertebral is patent and antegrade. Ordering Physician: Kwame Cai Referring Physician: Diana Mina Performed By: Hailey Calvillo, RDCS, RVT
== END | disposition home or self-care (01) ==
LOC: CVS 13:43
PROVIDERS: PCP Registered Nurse; Referring Provider Surgery Trauma Surgery; Visit Provider Surgery Trauma Surgery
DX: R09.89 Other specified symptoms and signs involving the circulatory and respiratory systems (principal); R27.0 Ataxia, unspecified
CPT/HCPCS: 93882; 93922

== ENCOUNTER → 2022-06-03 | Outpatient (CLI) | payer MEDICARE, SELFPAY ==
[2022-06-03 10:45] LABS: Potassium 4.5 mmol/L (3.5-5.1)
== END | disposition home or self-care (01) ==
PROVIDERS: PCP Registered Nurse; Referring Provider Psychiatry & Neurology Neurology; Visit Provider Psychiatry & Neurology Neurology
DX: E87.5 Hyperkalemia (principal)
CPT/HCPCS: 36415; 84132

== ENCOUNTER → 2022-12-01 | Outpatient (CLI) | payer MEDICARE, SELFPAY ==
--- NOTE | 2022-12-01 09:49 | CDU_ITS ---
Reason For Study: S/P Left CEA, known right carotid artery stenosis Rt. Velocities/BP Lt. Velocities/BP Prox CCA 66.4/13.5 cm/sec. Prox CCA 81.9/13.8 cm/sec. Mid CCA 98.1/17.9 cm/sec. Mid CCA 66.7/11.4 cm/sec. Dist CCA 141.2/24.8 cm/sec. Dist CCA 76.5/17.6 cm/sec. Prox ICA 230.5/26.8 cm/sec. Prox ICA 85/27.8 cm/sec. Mid ICA 182.2/21.5 cm/sec. Mid ICA 79.5/24.5 cm/sec. Dist ICA 79.1/18.8 cm/sec. Dist ICA 104.7/28.9 cm/sec. Rt. ICA/CCA = 2.35. Lt. ICA/CCA = 1.37. Prox ECA 279.7/16.9 cm/sec. Prox ECA 442.4/57.1 cm/sec. Rt. Vert. 60.8 cm/sec. Lt. Vert. 47.6 cm/sec. Right Extracranial There is heterogeneous, smooth atherosclerotic plaque noted in the right common carotid artery. There is heterogeneous, irregular atherosclerotic plaque noted in the right internal carotid artery. There is heterogeneous, irregular atherosclerotic plaque noted in the right external carotid artery. Antegrade flow is noted in the right vertebral artery. Left Extracranial There is homogeneous, smooth atherosclerotic plaque noted in the left common carotid artery. There is intimal thickening but no significant atherosclerotic plaque noted in the left internal carotid artery. There is heterogeneous, irregular atherosclerotic plaque noted in the left external carotid artery. Antegrade flow is noted in the left vertebral artery. Procedure Carotid Duplex [id number]. This is a Carotid Duplex examination using B-mode, color flow and specral Doppler. Exam performed in department. VL/Carotid Duplex Ultrasound Interpretation Summary Severe (>70%) stenosis right extracranial internal carotid. Normal left extracranial internal carotid. Patent and antegrade vertebrals bilaterally. Ordering Physician: Kwame Cai Referring Physician: Diana Mina Performed By: Cari Kilpatrick RVT
== END | disposition home or self-care (01) ==
LOC: CVS 09:48
PROVIDERS: PCP Registered Nurse; Referring Provider Surgery Trauma Surgery; Visit Provider Surgery Trauma Surgery
DX: I65.21 Occlusion and stenosis of right carotid artery (principal)
CPT/HCPCS: 93880

== ENCOUNTER → 2023-03-26 | Outpatient (CLI) | payer MEDICARE, SELFPAY ==
[2023-03-26 12:52] LABS: ALB/GLOB Ratio 1.2 RATIO (0.9-2.4); AST(SGOT) 34 U/L (15-37); Alanine Aminotransfer ALT/SGPT 67 U/L (13-56); Albumin, Serum 3.9 g/dL (3.2-5.0); Alkaline Phosphatase 183 U/L (45-117); Anion Gap 8 (5-15); BUN 44 mg/dL (7-18); BUN/Creat Ratio 30.3 RATIO (10-20); Calcium,Total 9.5 mg/dL (8.5-10.1); Chloride 112 mmol/L (98-107); Cholesterol 96 mg/dL (200); Creatinine, Serum 1.45 mg/dL (0.55-1.02); EST Glomerular Filtration Rate 38 mL/min (>60); Est Glom Filt Rate - Afr Amer 46 mL/min (>60); Globulin 3.3 g/dL (2.2-4.2); Glucose 95 mg/dL (74-106); High Density Lipoprotein 59 mg/dL; Protein, Total 7.2 g/dL (6.4-8.2); Sodium Level 139 mmol/L (136-145); Triglycerides 107 mg/dL; Very Low Density Lipoprotein 21 mg/dL (5-40)
== END | disposition home or self-care (01) ==
LOC: MTLAB 10:34
PROVIDERS: PCP Registered Nurse; Referring Provider Psychiatry & Neurology Neurology; Visit Provider Psychiatry & Neurology Neurology
DX: I65.29 Occlusion and stenosis of unspecified carotid artery (principal)
CPT/HCPCS: 36415; 80053; 80061